=== PATIENT | female | born 1950 ===

== ENCOUNTER 2016-12-23 06:21 | Day surgery (SDC) | payer MEDICARE, OTHER ==
[2016-12-23] MEDS ORDERED: methylPREDNISolone Depo 80 mg/ml Inj ONE (07:03)
[2016-12-23] MEDS ORDERED: Lidocaine 1% 20 MG/2 ML PF AMP ONE (07:03)
[2016-12-23] MEDS ORDERED: Iohexol 300 10 ML ONE (07:03)
[2016-12-23] MEDS ORDERED: Bupivacaine HCl 0.25% PF (10 ml) Inj ONE (07:04)
[2016-12-23] MEDS ORDERED: Lidocaine 1% Inj (20ml) ONE (07:04)
[2016-12-23 07:08] VITALS: BMI 26.2
[2016-12-23] MEDS ORDERED: Propofol 10 mg/ml Inj (20 ML) ONE (07:25)
[2016-12-23] MEDS ORDERED: Lactated Ringer's 1,000 ML IV ONE (07:37)
[2016-12-23] MEDS ORDERED: Lactated Ringer's 1,000 ML IV SCH (08:01)
[2016-12-23 10:15] VITALS: RESP 18
[2016-12-23 10:35] VITALS: BP 122/83; PULSE 89; TEMP 98.5; O2SAT 99
--- NOTE | 2016-12-23 14:32 | OP ---
PROCEDURE DATE: 12/23/2016 PREOPERATIVE DIAGNOSIS: Lumbar radiculopathy. POSTOPERATIVE DIAGNOSIS: Lumbar radiculopathy. PROCEDURE: Left L3-L4, L4-L5 transforaminal epidural steroid injection. ANESTHESIOLOGIST: Dr. Michele SURGEON: Dr. Ramirez ANESTHESIA TYPE: Monitored anesthesia care. COMPLICATIONS: None. SPECIMEN: None. DESCRIPTION OF PROCEDURE: After re-discussion of the procedure with the patient including its risks, benefits, alternatives, outcome data, possibility of no effect or increased pain, the patient consen archana to the procedure. She denies any recent infections, bleeding tendencies, or being on anticoagula nts. The decision was then made to proceed to the OR. The patient was placed on the fluoroscopy table in a prone position with 2 pillows underneath her abd omen. The back was prepped and draped in a usual sterile fashion and sterile technique was adhered t o during the entire procedure. The L3 and L4 vertebral levels were first identified in the anterior- posterior view. Angulation towards the left at approximately 20 degrees was obtained to maximize the visualization of the left L3 and L4 pedicles. The skin overlying the 6 o'clock position of both ped icles was then infiltrated with 1% lidocaine using a 25 gauge needle. Subsequently, a 22 gauge 3-1/2 inch spinal needle was then incrementally advanced under fluoroscopic guidance until tip of the need le lay within the intervertebral foramen. This was confirmed on the anterior-posterior view and on l ateral views. At this point, approximately 1 mL of Isovue contrast was injected into both needles to show appropriate epidural and nerve root spread without any signs of CSF or intravenous uptake. At this point, approximately 3 mL of a 0.25% Marcaine and Depo-Medrol mixture was injected into each nee dle. At the end of the procedure, the needles were removed and patient's back was cleaned and dried and Band-Aids were applied. The patient was then transferred to the recovery area in good condition without any signs of [place] or any neurological deficits. She will have a followup in office in approximately 2-4 weeks. En-Fabiano Ramirez MD cc: [id number] TT: 12/23/2016 14:32:11 en
--- NOTE | 2016-12-23 15:27 | RAD ---
PROCEDURE: Lumbar Epidural Injection HISTORY: PAIN MANAGEMENT TECHNIQUE: Fluoroscopic guidance was provided for epidural injection for pain management purposes. FINDINGS: IMPRESSION: Fluoroscopic guidance provided for epidural injection. Please refer procedure.
== END 2016-12-23 10:30 | disposition home or self-care (01) ==
LOC: H.OPSURG 06:21
PROVIDERS: ATTEND Anesthesiology
DX: M54.16 Radiculopathy, lumbar region (principal); E11.9 Type 2 diabetes mellitus without complications
CPT/HCPCS: 64483; 64484; 82948; J1040; J2001; J2704; J7120; Q9967

== ENCOUNTER 2017-08-26 10:32 | Emergency (ER) | payer MEDICARE, OTHER ==
[2017-08-26 10:33] VITALS: BMI 26.2
[2017-08-26 11:09] VITALS: BP 136/71; PULSE 78; RESP 18; TEMP 98.2; O2SAT 97
--- NOTE | 2017-08-26 11:33 | ED PDOC ---
HPI: Back Time Seen by Provider: 08/26/17 11:32 Chief Complaint (Nursing): Back Pain Chief Complaint (Provider): back pain History Per: Patient Additional Complaint(s): 67-year-old female with history of chronic back pain presents to emergency department complaining of worsening pain to lower back. Patient states the pain got worse 2 days ago. She denies fall or trauma. No acute bowel or bladder dysfunction. Patient takes tramadol daily but this has provided minimal pain relief. Patient is under the care of Dr. Ramirez, paint process engineer and is due for an injection next week. PMD: Dr. Nowak Past Medical History Reviewed: Historical Data, Nursing Documentation, Vital Signs Vital Signs: Last Vital Signs Temp 98.2 F 08/26/17 11:06 Pulse 78 08/26/17 11:06 Resp 18 08/26/17 11:06 BP 136/71 08/26/17 11:06 Pulse Ox 97 08/26/17 11:06 - Medical History PMH: Anemia, Arthritis, Back Problems, HTN, Hypercholesterolemia, Hypothyroidism , Rheumatoid Arthritis - Surgical History Surgical History: Back Surgery, Hernia Repair Other surgeries: Left foot surgery x 4, right foot surgery x 1, right shoulder surgery - Family History Family History: States: No Known Family Hx - Living Arrangements Living Arrangements: With Family - Social History Current smoker - smoking cessation education provided: No Alcohol: None Drugs: Denies - Home Medications Home Medications: Ambulatory Orders Medication Instructions Recorded Diclofenac Sodium [Voltaren Gel] 1 applic TP QID 06/01/14 Gabapentin 300 mg PO Q12 06/01/14 Glimepiride [Amaryl] 4 mg PO BID 06/01/14 Megestrol [Megace] 200 mg PO BID 06/01/14 MetFORMIN [glucoPHAGE] 1,000 mg PO BID 06/01/14 [id number] Ethyl Esters [Lovaza] 1,000 mg PO DAILY 06/01/14 Pantoprazole Sodium [Protonix] 40 mg PO DAILY 06/01/14 Rosuvastatin Calcium [Crestor] 20 mg PO DAILY 06/01/14 traMADol/Acetaminophen [Ultracet 37.5 mg PO Q6 06/01/14 37.5/325 mg] Cholecalciferol [Vitamin D 1000 IU] 50,000 unit PO QWK 04/18/15 Cyanocobalamin (Vitamin B-12) 1 tab PO DAILY 04/18/15 [Vitamin B-12] Insulin Detemir [Levemir Flextouch] 18 unit SC BID 04/18/15 Meloxicam 7.5 mg PO DAILY 04/18/15 Ropinirole HCl [Ropinirole ER] 1 mg PO HS 04/18/15 Cyclobenzaprine [Cyclobenzaprine 10 mg PO TID PRN #15 tab 08/26/17 HCl] - Allergies Allergies/Adverse Reactions: Allergies Allergy/AdvReac Type Severity Reaction Status Date / Time No Known Allergies Allergy Verified 08/26/17 11:06 Review of Systems ROS Statement: Except As Marked, All Systems Reviewed And Found Negative Constitutional: Negative for: Fever Cardiovascular: Negative for: Chest Pain Respiratory: Negative for: Cough Gastrointestinal: Negative for: Nausea, Vomiting Genitourinary Female: Negative for: Dysuria, Frequency, Incontinence, Hematuria Musculoskeletal: Positive for: Back Pain Physical Exam - Reviewed Nursing Documentation Reviewed: Yes Vital Signs Reviewed: Yes - Physical Exam Appears: Positive for: Well, Non-toxic, No Acute Distress Skin: Negative for: Rash Eye Exam: Positive for: Normal appearance Cardiovascular/Chest: Positive for: Regular Rate, Rhythm Respiratory: Positive for: Normal Breath Sounds Back: Positive for: Vertebral Tenderness (lumbar region) Extremity: Positive for: Normal ROM. Negative for: Pedal Edema Neurologic/Psych: Positive for: Alert, Oriented, Gait (steady) - ECG O2 Sat by Pulse Oximetry: 97 Pulse Ox Interpretation: Normal Medical Decision Making Medical Decision Making: Impression: Acute on chronic back pain Plan: PO tylenol IM toradol She feels better after medications were administered in ED. Patient has prescription for tramadol at home, Flexeril prescription provided. She was instructed to follow up with Dr. Ramirez in 2-3 days. Disposition - Clinical Impression Clinical Impression: Back pain, Chronic back pain - Patient ED Disposition Is Patient to be Admitted: No Counseled Patient/Family Regarding: Diagnosis, Need For Followup, Rx Given - Disposition Referrals: Hailey Ramirez MD [Staff Provider] - Disposition: Routine/Home Disposition Time: 13:13 Condition: STABLE Additional Instructions: Continue with tramadol for pain. Take prescription meds as directed. Follow-up with paint process engineer. Prescriptions: Cyclobenzaprine [Cyclobenzaprine HCl] 10 mg PO TID PRN #15 tab PRN Reason: Muscle Pain Instructions: Back Pain (ED) Forms: [facility] ([facility])
== END 2017-08-26 13:20 | disposition home or self-care (01) ==
LOC: H.ER 10:32
DX: M54.9 Dorsalgia, unspecified (principal); E03.9 Hypothyroidism, unspecified; E78.00 Pure hypercholesterolemia, unspecified; G89.29 Other chronic pain; I10 Essential (primary) hypertension; M06.9 Rheumatoid arthritis, unspecified; Z79.4 Long term (current) use of insulin
CPT/HCPCS: 96372; 99282; J1885

== ENCOUNTER 2017-08-29 06:08 | Day surgery (SDC) | payer MEDICARE, OTHER ==
[2017-08-29] MEDS ORDERED: Iohexol 300 10 ML ONE (07:29)
[2017-08-29] MEDS ORDERED: MethylPREDNISolone Depo 40 mg/ml Inj ONE (07:29)
[2017-08-29] MEDS ORDERED: Lidocaine 1% Inj (20ml) ONE (07:30)
[2017-08-29] MEDS ORDERED: Bupivacaine HCl 0.25% PF (10 ml) Inj ONE (07:30)
[2017-08-29] MEDS ORDERED: Lactated Ringer's 1,000 ML IV ONE (07:45)
[2017-08-29] MEDS ORDERED: Propofol 10 mg/ml Inj (20 ML) ONE (07:46)
[2017-08-29] MEDS ORDERED: Iohexol 300 10 ML IJ ONE (07:53)
[2017-08-29] MEDS ORDERED: Lidocaine 1% Inj (20ml) IJ ONE (07:55)
[2017-08-29] MEDS ORDERED: MethylPREDNISolone Depo 40 mg/ml Inj IM ONE (08:00)
[2017-08-29] MEDS ORDERED: Bupivacaine HCl 0.25% PF (10 ml) Inj IJ ONE (08:00)
[2017-08-29] MEDS ORDERED: Lactated Ringer's 1,000 ML IV SCH (08:30)
--- NOTE | 2017-08-29 08:41 | OP ---
PROCEDURE DATE: 08/29/2017 PREOPERATIVE DIAGNOSIS: Failed back syndrome. POSTOPERATIVE DIAGNOSIS: Failed back syndrome. PROCEDURE: Left L3-4, L4-5, and L5-S1 transforaminal epidural steroid injection. ANESTHESIOLOGIST: Dr. Michele. SURGEON: Hailey Ramirez MD TYPE OF ANESTHESIA: Monitored anesthesia care. SPECIMENS: None. COMPLICATIONS: None. DESCRIPTION OF PROCEDURE: As follows. After we had discussion of the procedure with the patient including its risks, benefits, alternatives, outcome data and possibility of no effect or increased pain, the patient consented to the procedure. She denies any recent infection, bleeding tendencies or being on anticoagulants, a decision was then made to proceed to the OR. The patient was placed on a fluoroscopy table in a prone position with 2 pillows underneath her abdomen. The back was prepped and draped in a usual sterile fashion and a sterile technique was adhered to during the entire procedure. The L3, L4 and L5 vertebral levels were first identified in the anteroposterior view. Angulation towards the left at approximately 15 degrees was used to maximize the visualization of the left L3, L4 and L5 pedicles. The skin overlying the 6 o'clock position of all three pedicles was infiltrated with 1% lidocaine using a 25-gauge needle. Subsequently, a 22-gauge 3.5-inch spinal needle was incrementally advanced under fluoroscopic guidance until the tip of needle worked into the intravertebral foramen. After satisfactory position of all 3 needles, approximately 0.5 mL of Isovue contrast was injected showing appropriate epidural nerve root spread without any signs of CSF or intravenous involvement. At this point, approximately 3 mL of 0.25% Marcaine and Depo-Medrol mixture was injected. The needle was then removed and the patient's back was cleaned and dry bandages were applied. The patient was then transferred to the recovery area in good condition without any signs of TREATMENT SUPERVISOR toxicity or any neurological deficit. She will follow up in our office in approximately two to four weeks. Hailey Ramirez MD
[2017-08-29 09:01] VITALS: PULSE 83
[2017-08-29 09:07] VITALS: RESP 18
[2017-08-29 09:27] VITALS: BP 109/67; TEMP 98
[2017-08-29 09:30] VITALS: O2SAT 98
== END 2017-08-29 10:01 | disposition home or self-care (01) ==
LOC: H.OPSURG 06:08
PROVIDERS: ATTEND Anesthesiology
DX: M54.16 Radiculopathy, lumbar region (principal); E11.9 Type 2 diabetes mellitus without complications; K21.9 Gastro-esophageal reflux disease without esophagitis
CPT/HCPCS: 64483; 64484; 82948; J1030; J2001; J2704; J7120; Q9967

== ENCOUNTER 2017-09-24 09:23 | Day surgery (SDC) | payer MEDICARE, OTHER ==
[2017-09-24] MEDS ORDERED: Lactated Ringer's 1,000 ML IV ONE (10:00)
[2017-09-24 11:05] VITALS: RESP 18
[2017-09-24] MEDS ORDERED: Bupivacaine HCl 0.5% PF (10 ml) Inj ONE (11:43)
[2017-09-24] MEDS ORDERED: MethylPREDNISolone Depo 40 mg/ml Inj ONE (11:43)
[2017-09-24] MEDS ORDERED: Lidocaine 1% Inj (20ml) ONE (11:44)
[2017-09-24] MEDS ORDERED: Bupivacaine HCl 0.25% PF (10 ml) Inj ONE (11:44)
[2017-09-24] MEDS ORDERED: Midazolam 2 MG/2 ML VIAL ONE (11:56)
[2017-09-24] MEDS ORDERED: Iohexol 300 10 ML ONE (11:59)
[2017-09-24 13:16] VITALS: BP 142/78; PULSE 83; TEMP 97.6; O2SAT 98
--- NOTE | 2017-09-24 14:54 | RAD ---
PROCEDURE: Intraoperative Fluoroscopy. HISTORY: EPIDURAL FINDINGS: Fluoroscopic assistance was provided 51 point seconds fluoroscopy time utilized during this procedure. Radiation dose = 17.79 mGy. . Please refer to the operative report from KENRICK Bello.
--- NOTE | 2017-09-24 16:18 | OP ---
PROCEDURE DATE: 09/24/2017 PREOPERATIVE DIAGNOSES: Lumbar spondylosis and failed back syndrome. POSTOPERATIVE DIAGNOSES: Lumbar spondylosis and failed back syndrome. PROCEDURE: Left L4-5 and L5-S1 transforaminal epidural steroid injection and left L3, L4 and L5 medial branch nerve block. ANESTHESIOLOGIST: Dr. Liang. SURGEON: Hailey Ramirez MD TYPE OF ANESTHESIA: Monitored anesthesia care. COMPLICATIONS: None. SPECIMENS: None. DESCRIPTION OF PROCEDURE: As follows. After we had discussion of the procedure with the patient including its risks, benefits, alternatives, outcome data, possibility of no effects, and increased pain, the patient consented to the procedure. She denies any recent infection, bleeding tendencies or being on anticoagulants. Decision was then made to proceed to the OR. The patient was placed on a fluoroscopy table in a prone position with 2 pillows underneath her abdomen. The back was prepped and draped in a usual sterile fashion and a sterile technique was adhered to during the entire procedure. The transforaminal epidural steroid injection was performed first. The L4 and L5 vertebral levels were first identified in the anteroposterior view. Angulation towards the left at approximately 20 degrees was used to maximize the visualization of the left L4 and L5 pedicles. The skin overlying the 6 o'clock position of both pedicles was infiltrated with 1% lidocaine using a 25-gauge needle. Subsequently, a 22-gauge 3.5-inch spinal needle was incrementally advanced under fluoroscopic guidance until the tip of needle into the intervertebral foramen. After satisfactory position of both needles, approximately 0.5 mL of Isovue contrast was injected showing appropriate epidural nerve root spread without any signs of CSF or intravenous involvement. At this point, approximately 3 mL of 0.25% Marcaine and Depo-Medrol mixture was injected. Then, the medial branch nerve block was performed. was the left at approximately 15 degrees was used to maximize the visualization of the L3, L4 and L5 pedicles. The skin overlying the three above target areas was then infiltrated with 1% lidocaine using a 25-gauge needle. Subsequently, a 22-gauge 3.5-inch spinal needle was then incrementally advanced under fluoroscopic guidance until tip of the needle made bony contact with all three target areas. After satisfactory positioning of all three needles, approximately 3 mL of 0.5% Marcaine and Depo-Medrol mixture was injected. The needles were then removed and the patient's back was cleaned and dry bandages were applied. The patient was then transferred to the recovery area in good condition without any signs of WOOL PRESSER toxicity or any neurological deficits. She will follow up in our office in approximately 2 to 4 weeks. En-Fabiano Ramirez MD
== END 2017-09-24 13:45 | disposition home or self-care (01) ==
LOC: H.OPSURG 09:23
PROVIDERS: ATTEND Anesthesiology
DX: M47.816 Spondylosis without myelopathy or radiculopathy, lumbar region (principal)
CPT/HCPCS: 64483; 64484; 76000; 82948; J1030; J2250; J3010; J7120; Q9967

== ENCOUNTER 2017-11-04 10:09 | Inpatient (IN) | payer MEDICARE, OTHER ==
[2017-11-04 10:09] VITALS: BMI 26.2
--- NOTE | 2017-11-04 10:36 | ED PDOC ---
HPI: Back Time Seen by Provider: 11/04/17 10:23 History Per: Patient Current Symptoms Are (Timing): Still Present Quality Of Discomfort: Aching Severity: Moderate Pain Scale Rating Of: 5 Previous Symptoms: Back Pain Associated Symptoms: None Exacerbating Factor(s): Movement Additional Complaint(s): Left sided low back pain radiating to left leg assoc with numbness left leg. Progressively worse over past week. H/o lumbar disc herniation. No improvement with injections. Past Medical History Vital Signs: Last Vital Signs Temp 98.1 F 11/04/17 10:20 Pulse 92 H 11/04/17 10:20 Resp 16 11/04/17 10:20 BP 134/76 11/04/17 10:20 Pulse Ox 96 11/04/17 10:20 - Medical History PMH: Anemia, Arthritis, Back Problems, Diabetes, HTN, Hypercholesterolemia, Hyperthyroidism, Hypothyroidism, Rheumatoid Arthritis Denies: Chronic Kidney Disease - Surgical History Surgical History: Back Surgery, Hernia Repair - Family History Family History: States: Unknown Family Hx - Home Medications Home Medications: Ambulatory Orders Medication Instructions Recorded Diclofenac Sodium [Voltaren Gel] 1 applic TP QID 06/01/14 Gabapentin 600 mg PO DAILY 06/01/14 Megestrol [Megace] 200 mg PO BID 06/01/14 MetFORMIN [glucoPHAGE] 1,000 mg PO BID 06/01/14 [id number] Ethyl Esters [Lovaza] 1,000 mg PO DAILY 06/01/14 Pantoprazole Sodium [Protonix] 40 mg PO DAILY 06/01/14 Rosuvastatin Calcium [Crestor] 20 mg PO DAILY 06/01/14 traMADol/Acetaminophen [Ultracet 37.5 mg PO Q6 06/01/14 37.5/325 mg] Cholecalciferol [Vitamin D 1000 IU] 50,000 unit PO QWK 04/18/15 Insulin Detemir [Levemir Flextouch] 18 unit SC BID 04/18/15 Ropinirole HCl [Ropinirole ER] 0.5 mg PO HS 04/18/15 Cyclobenzaprine [Cyclobenzaprine 10 mg PO TID PRN #15 tab 08/26/17 HCl] Cholecalciferol (Vitamin D3) 5,000 unit PO ONCE 10/29/17 [Vitamin D3] Cyanocobalamin [Vitamin B12 100 100 mcg PO DAILY 10/29/17 mcg Tab] Empagliflozin [Jardiance] 25 mg PO DAILY 10/29/17 Lactulose [Generlac] 10 gm PO DAILY 10/29/17 Memantine [Namenda] 10 mg PO BID 10/29/17 - Allergies Allergies/Adverse Reactions: Allergies Allergy/AdvReac Type Severity Reaction Status Date / Time No Known Allergies Allergy Verified 09/24/17 10:22 Review of Systems ROS Statement: Except As Marked, All Systems Reviewed And Found Negative Musculoskeletal: Positive for: Back Pain Neurological: Positive for: Numbness Physical Exam - Reviewed Nursing Documentation Reviewed: Yes Vital Signs Reviewed: Yes - Physical Exam Appears: Positive for: Non-toxic, No Acute Distress Head Exam: Positive for: ATRAUMATIC, NORMAL INSPECTION, NORMOCEPHALIC Skin: Positive for: Normal Color, Warm, DRY Eye Exam: Positive for: EOMI, Normal appearance, PERRL ENT: Positive for: Normal ENT Inspection Neck: Positive for: Normal, Painless ROM Cardiovascular/Chest: Positive for: Regular Rate, Rhythm Respiratory: Positive for: CNT, Normal Breath Sounds Gastrointestinal/Abdominal: Positive for: Normal Exam, Soft Back: Positive for: Vertebral Tenderness (Lumbar area) Extremity: Positive for: Normal ROM Neurologic/Psych: Positive for: Alert, Oriented. Negative for: Motor/Sensory Deficits - ECG O2 Sat by Pulse Oximetry: 96 Disposition - Clinical Impression Clinical Impression: Lumbar disc herniation with radiculopathy - Patient ED Disposition Is Patient to be Admitted: Yes - Disposition Disposition Time: 10:36 Condition: FAIR - Pt Status Changed To: Hospital Disposition Of: Inpatient - Admit Certification Admit to Inpatient:: After my assessment, the patient will require hospitalization for at least two midnights. This is because of the severity of symptoms shown, intensity of services needed, and/or the medical risk in this patient being treated as an outpatient. - POA Present On Arrival: None
--- NOTE | 2017-11-04 11:04 | RAD ---
HISTORY: COMPARISON: 10/16/2017. TECHNIQUE: Chest PA and lateral FINDINGS: LINES AND TUBES: None. LUNG AND PLEURA: The lungs are well inflated and clear. HEART AND MEDIASTINUM: The heart is not enlarged. The hilar and mediastinal contours are within normal limits. SKELETAL STRUCTURES: The bony structures are within normal limits for the patient's age. VISUALIZED UPPER ABDOMEN: Normal. OTHER FINDINGS: None. IMPRESSION: No active pulmonary disease.
[2017-11-04 11:28] LABS: BASO % 0.5 % (0.0-2.0); EOS # 0.2 K/uL (0.0-0.7); EOS % 2.6 % (0.0-4.0); HEMOGLOBIN 11.1 g/dL (12.0-16.0); LYMPH # 1.8 K/uL (1.0-4.3); LYMPH % 21.4 % (20.0-40.0); MEAN CELL VOLUME 89.5 fl (81.0-99.0); MEAN CORPUSCULAR HEMOGLOBIN 28.8 pg (27.0-31.0); MEAN CORPUSCULAR HGB CONC 32.2 g/dL (33.0-37.0); MEAN PLATELET VOLUME 8.7 fl (7.2-11.7); MONO # 0.7 K/uL (0.0-0.8); MONO % 8.1 % (0.0-10.0); NEUT # 5.7 K/uL (1.8-7.0); NEUT % 67.4 % (50.0-75.0); NRBC % 0.1 % (0.0-0.0); RBC 3.85 Mil/uL (3.80-5.20); RED CELL DISTRIBUTION WIDTH 16.9 % (11.5-14.5); WHITE BLOOD COUNT 8.4 K/uL (4.8-10.8)
[2017-11-04 11:31] LABS: PROTHROMBIN TIME 10.9 Seconds (9.8-13.1)
[2017-11-04 11:35] LABS: ALB/GLOB RATIO 1.3 (1.0-2.1); ALBUMIN 3.8 g/dL (3.5-5.0); ALT/SGPT 36 U/L (9-52); AST/SGOT 23 U/L (14-36); BLOOD UREA NITROGEN 14 mg/dl (7-17); CALCIUM 9.3 mg/dL (8.4-10.2); GFR AFRICAN-AMERICAN > 60; GFR NON-AFRICAN AMERICAN > 60
--- NOTE | 2017-11-04 16:07 | CP.PCM.CON ---
History of Present Illness - History of Present Illness History of Present Illness: Neurosurgery consult Patient is a 67 y/o female with PMH of OA, DM, HTN, hypercholesterolemia, hyperthyroidism and RA who presents to [facility] ER with c/o severe lower back pain. She denies any injury or trauma recently but states the she had lower back pain for many years which has progressively worsened over the past few months and has been very limiting over the past few days. Dr. Montes was consulted for neurosurgical evaluation. The pain has severely limited her daily functions including walking, sitting and climbing stairs. The pain is sharp, stabbing and left sided. The pain radiates down the LLE with associated occasional numbness and tingling. She has failed conservative management with oral meds and physical therapy, as well as steroid injections. Se denies any bowel/ bladder dysfunction or saddle paresthesias. She also denies CP/SOB/N/V/D/MEDINA/ fever/dysuria/melena. Review of Systems - Review of Systems All systems: reviewed and no additional remarkable complaints except Review of Systems: as per HPI Past Patient History - Past Medical History & Family History Past Medical History?: Yes Past Family History: Reviewed and not pertinent - Past Social History Smoking Status: Never Smoked Drugs: Denies - CARDIAC Hx Cardiac Disorders: Yes (HTN, high cholesterol,) - PULMONARY Hx Respiratory Disorders: No - NEUROLOGICAL Hx Neurological Disorder: No - HEENT Hx HEENT Problems: No Other/Comment: Excision of cyst R eye - RENAL Hx Chronic Kidney Disease: No - ENDOCRINE/METABOLIC Hx Endocrine Disorders: Yes (DM, hyperthyroidism) - HEMATOLOGICAL/ONCOLOGICAL Hx Blood Disorders: Yes (anemia) - INTEGUMENTARY Hx Dermatological Problems: No Other/Comment: Excision of neuroma david feet, Excision of sebaceous L shoulder - MUSCULOSKELETAL/RHEUMATOLOGICAL Hx Musculoskeletal Disorders: Yes (arthritis, back pain, herniated disk) - GASTROINTESTINAL Hx Gastrointestinal Disorders: Yes Hx Gastroesophageal Reflux: Yes Other/Comment: GERD - GENITOURINARY/GYNECOLOGICAL Hx Genitourinary Disorders: No - PSYCHIATRIC Hx Psychophysiologic Disorder: No Hx Emotional Abuse: No Hx Physical Abuse: No Hx Substance Use: No - SURGICAL HISTORY Hx Surgeries: Yes Hx Eye Surgery: Yes (LASIK SX RT EYE 3 WEEKS AGO) Hx Musculoskeletal Surgery: Yes (BACK SURGERY) Hx Orthopedic Surgery: Yes (R shoulder sx) Other/Comment: MULTIPLE EPIDURALS/DAVID FOOT SURGERYX5/RIGHT SHOULDER SURGERY - ANESTHESIA Hx Anesthesia: Yes Hx Anesthesia Reactions: No Hx Malignant Hyperthermia: No Meds Allergies/Adverse Reactions: Allergies Allergy/AdvReac Type Severity Reaction Status Date / Time No Known Allergies Allergy Verified 09/24/17 10:22 Physical Exam - Constitutional Appears: No Acute Distress - Head Exam Head Exam: ATRAUMATIC, NORMOCEPHALIC - Eye Exam Eye Exam: EOMI, Normal appearance, PERRL - ENT Exam ENT Exam: Mucous Membranes Moist - Neck Exam Neck exam: Positive for: Normal Inspection - Respiratory Exam Respiratory Exam: Clear to Auscultation Bilateral, NORMAL BREATHING PATTERN - Cardiovascular Exam Cardiovascular Exam: REGULAR RHYTHM - GI/Abdominal Exam GI & Abdominal Exam: Normal Bowel Sounds, Soft - Back Exam Additional comments: NSX: + lumbar vertebral tenderness, +L paraspinal tenderness, old lumbar laminectomy scar all CN intact sensation intact SP/DP/TN 4/5 strength LLE, 5/5 RLE distal pulses intact + L SLR, neg R SLR, neg babinski, neg homans - Neurological Exam Neurological exam: Alert, Oriented x3 - Psychiatric Exam Psychiatric exam: Normal Affect, Normal Mood - Skin Skin Exam: Normal Color, Warm Results - Vital Signs Recent Vital Signs: Last Vital Signs Temp 98.0 F 11/04/17 14:40 Pulse 80 11/04/17 14:40 Resp 18 11/04/17 14:40 BP 139/79 11/04/17 14:40 Pulse Ox 96 11/04/17 14:40 - Labs Result Diagrams: 11/05/17 05:55 11/05/17 05:55 Labs: Laboratory Results - last 24 hr 11/04/17 11/04/17 11/04/17 10:45 10:45 10:45 WBC 8.4 RBC 3.85 Hgb 11.1 L Hct 34.4 MCV 89.5 MCH 28.8 MCHC 32.2 L RDW 16.9 H Plt Count 260 MPV 8.7 Neut % (Auto) 67.4 Lymph % (Auto) 21.4 Calloway % (Auto) 8.1 Eos % (Auto) 2.6 Baso % (Auto) 0.5 Neut # (Auto) 5.7 Lymph # (Auto) 1.8 Calloway # (Auto) 0.7 Eos # (Auto) 0.2 Baso # (Auto) 0.0 PT 10.9 INR 1.0 Sodium 140 Potassium 3.9 Chloride 102 Carbon Dioxide 23 Anion Gap 19 BUN 14 Creatinine 0.6 L Est GFR ( Amer) > 60 Est GFR (Non-Af Amer) > 60 POC Glucose (mg/dL) Random Glucose 281 H Calcium 9.3 Total Bilirubin 0.3 AST 23 ALT 36 Alkaline Phosphatase 69 Total Protein 6.8 Albumin 3.8 Globulin 3.0 Albumin/Globulin Ratio 1.3 11/04/17 10:45 WBC RBC Hgb Hct MCV MCH MCHC RDW Plt Count MPV Neut % (Auto) Lymph % (Auto) Calloway % (Auto) Eos % (Auto) Baso % (Auto) Neut # (Auto) Lymph # (Auto) Calloway # (Auto) Eos # (Auto) Baso # (Auto) PT INR Sodium Potassium Chloride Carbon Dioxide Anion Gap BUN Creatinine Est GFR ( Amer) Est GFR (Non-Af Amer) POC Glucose (mg/dL) 248 H Random Glucose Calcium Total Bilirubin AST ALT Alkaline Phosphatase Total Protein Albumin Globulin Albumin/Globulin Ratio Assessment & Plan (1) Lumbar disc herniation with radiculopathy Assessment and Plan: -Dr. Montes proposes L4-5 lumbar laminectomy with fusion in OR for kevin AM -Patient was explained risks/benefits/adv/disadv of procedure. Pt expresses understanding and agrees to proceed -NPO pMN -hold Dvt. ppx -above d/w Dr. Montes in agreement Status: Chronic Priority: High
--- NOTE | 2017-11-04 19:15 | CP.PCM.HP ---
History of Present Illness - History of Present Illness History of Present Illness: CC: Intractable Back pain. 67 y/o F, Multiple chronic medical conditions, including R/A, came to ER, [facility], [place] to be evaluated for acute on chronic back pain, that has been suffering from months, Pt c/o of gradually worsening back pain from last week, Pt with Hx of multiple admission to hospital for epidural block with some relief ,also using Tramadol with no total relief. Pt was c/o of L side low back pain, sharp, stabbing, severe intensity 9:10, radiated to LLE and associated occasional mild numbness/ tingling , also in the L leg. Worsening symptoms: Chronic back pain 2nd to lumbar disc herniations , sleepless 2nd to clinical condition. Aggravated factor: Movements, limited in all the ADL's. Pt denied: Recent trauma, fever, chills, dizziness, CP, palpitations, SOB, cough, n/v/d, abdominal pain, urinary symptoms, sick contact, recent travel out of [facility]. On 10/10/17, Pt had Lumbar Spine CT showing: Worsening of degenerative central stenosis at L4-5, moderate to severe. Slightly greater the left than right given partial R Hemilaminectomy. CXR shows: No active pulmonary disease. Present on Admission - Present on Admission Any Indicators Present on Admission: No Review of Systems - Constitutional Constitutional: Other (negative) - EENT Eyes: Requires Corrective Lenses Nose/Mouth/Throat: Other (negative) - Cardiovascular Cardiovascular: Other (negative) - Respiratory Respiratory: Other (negative) - Gastrointestinal Gastrointestinal: Other (negative) - Genitourinary Genitourinary: Other (negative) - Musculoskeletal Musculoskeletal: Arthralgias, Back Pain, Radiating Pain into Limb - Integumentary Integumentary: Other (negative) - Neurological Neurological: Confusion (at times), Numbness (L/E), Tingling (L/E) - Psychiatric Psychiatric: Abnormal Sleep Pattern - Endocrine Endocrine: Other (negative) - Hematologic/Lymphatic Hematologic: Other (negative) Past Patient History - Past Medical History & Family History Past Medical History?: Yes Past Family History: Reviewed and not pertinent Pertinent Family History: Unknown - Past Social History Smoking Status: Never Smoked Alcohol: None Drugs: Denies Home Situation {Lives}: With Family - CARDIAC Hx Cardiac Disorders: Yes (HTN, high cholesterol,) - PULMONARY Hx Respiratory Disorders: No - NEUROLOGICAL Hx Neurological Disorder: No - HEENT Hx HEENT Problems: No Other/Comment: Excision of cyst R eye - RENAL Hx Chronic Kidney Disease: No - ENDOCRINE/METABOLIC Hx Endocrine Disorders: Yes (DM) Hx Diabetes Mellitus Type 2: Yes Other/Comment: DM Neuropathy , DM Retinopathy - HEMATOLOGICAL/ONCOLOGICAL Hx Blood Disorders: Yes (anemia) - INTEGUMENTARY Hx Dermatological Problems: No Other/Comment: Excision of neuroma david feet, Excision of sebaceous L shoulder - MUSCULOSKELETAL/RHEUMATOLOGICAL Hx Musculoskeletal Disorders: Yes (arthritis, back pain, herniated disk) - GASTROINTESTINAL Hx Gastrointestinal Disorders: Yes Hx Gastroesophageal Reflux: Yes Other/Comment: GERD - GENITOURINARY/GYNECOLOGICAL Hx Genitourinary Disorders: No - PSYCHIATRIC Hx Psychophysiologic Disorder: No Hx Anxiety: Yes Hx Emotional Abuse: No Hx Physical Abuse: No Hx Substance Use: No - SURGICAL HISTORY Hx Surgeries: Yes Hx Eye Surgery: Yes (LASIK SX RT EYE 3 WEEKS AGO) Hx Musculoskeletal Surgery: Yes (BACK SURGERY) Hx Orthopedic Surgery: Yes (R shoulder sx) Other/Comment: MULTIPLE EPIDURALS/DAVID FOOT SURGERYX5/RIGHT SHOULDER SURGERY - ANESTHESIA Hx Anesthesia: Yes Hx Anesthesia Reactions: No Hx Malignant Hyperthermia: No Meds Allergies/Adverse Reactions: Allergies Allergy/AdvReac Type Severity Reaction Status Date / Time No Known Allergies Allergy Verified 09/24/17 10:22 Physical Exam - Constitutional Appears: No Acute Distress - Head Exam Head Exam: NORMAL INSPECTION - Eye Exam Eye Exam: PERRL - ENT Exam Additional comments: Decreased hearing R side. - Neck Exam Neck exam: Positive for: Normal Inspection - Respiratory Exam Respiratory Exam: Clear to Auscultation Bilateral - Cardiovascular Exam Cardiovascular Exam: REGULAR RHYTHM - GI/Abdominal Exam GI & Abdominal Exam: Normal Bowel Sounds, Soft - Extremities Exam Extremities exam: Positive for: normal inspection - Back Exam Back exam: NORMAL INSPECTION - Neurological Exam Neurological exam: Alert, Oriented x3 Additional comments: No motor deficit , decreased sensation distal lege , feet - Psychiatric Exam Psychiatric exam: Normal Mood - Skin Skin Exam: Normal Color, Warm Results - Vital Signs Recent Vital Signs: Last Vital Signs Temp 98.1 F 11/04/17 16:47 Pulse 82 11/04/17 16:47 Resp 17 11/04/17 16:47 BP 157/73 H 11/04/17 16:47 Pulse Ox 97 04/24/18 16:47 reviewed KatiePManfred - Labs Result Diagrams: 11/04/17 10:45 11/04/17 10:45 Labs: Laboratory Results - last 24 hr 11/04/17 11/04/17 11/04/17 10:45 10:45 10:45 WBC 8.4 RBC 3.85 Hgb 11.1 L Hct 34.4 MCV 89.5 MCH 28.8 MCHC 32.2 L RDW 16.9 H Plt Count 260 MPV 8.7 Neut % (Auto) 67.4 Lymph % (Auto) 21.4 Rolette % (Auto) 8.1 Eos % (Auto) 2.6 Baso % (Auto) 0.5 Neut # (Auto) 5.7 Lymph # (Auto) 1.8 Rolette # (Auto) 0.7 Eos # (Auto) 0.2 Baso # (Auto) 0.0 PT 10.9 INR 1.0 Sodium 140 Potassium 3.9 Chloride 102 Carbon Dioxide 23 Anion Gap 19 BUN 14 Creatinine 0.6 L Est GFR ( Amer) > 60 Est GFR (Non-Af Amer) > 60 POC Glucose (mg/dL) Random Glucose 281 H Calcium 9.3 Total Bilirubin 0.3 AST 23 ALT 36 Alkaline Phosphatase 69 Total Protein 6.8 Albumin 3.8 Globulin 3.0 Albumin/Globulin Ratio 1.3 11/04/17 10:45 WBC RBC Hgb Hct MCV MCH MCHC RDW Plt Count MPV Neut % (Auto) Lymph % (Auto) Rolette % (Auto) Eos % (Auto) Baso % (Auto) Neut # (Auto) Lymph # (Auto) Rolette # (Auto) Eos # (Auto) Baso # (Auto) PT INR Sodium Potassium Chloride Carbon Dioxide Anion Gap BUN Creatinine Est GFR ( Amer) Est GFR (Non-Af Amer) POC Glucose (mg/dL) 248 H Random Glucose Calcium Total Bilirubin AST ALT Alkaline Phosphatase Total Protein Albumin Globulin Albumin/Globulin Ratio reviewed JManfredPManfred - Imaging and Cardiology Chest x-ray Status: Report reviewed by me (Tiara) Assessment & Plan (1) Acute exacerbation of chronic low back pain Status: Acute Priority: High (2) Lumbar disc herniation with radiculopathy Status: Chronic Priority: High (3) DM type 2 (diabetes mellitus, type 2) Status: Acute (4) DM neuropathy, type II diabetes mellitus Status: Acute (5) Hypercholesterolemia Status: Chronic Priority: Medium (6) Vitamin D deficiency Status: Acute (7) Anxiety Status: Chronic Priority: Medium - Assessment and Plan (Free Text) Plan: Morphine, IV NS , NPO after midnight , Accu Check-Humalog ,Neurosurgery consult appreciated , review EKG for Medical clearance. - Date & Time Date: 11/04/17 Time: 19:00
[2017-11-04] MEDS: Insulin Lispro (humaLOG) 100 Units/ml Inj SC SCH (22:07)
[2017-11-05] MEDS ORDERED: Sodium Chloride 0.45% 1,000 ML IV SCH (00:01)
[2017-11-05 07:00] LABS: BASO % 0.4 % (0.0-2.0); EOS # 0.1 K/uL (0.0-0.7); EOS % 2.1 % (0.0-4.0); HEMOGLOBIN 11.1 g/dL (12.0-16.0); LYMPH # 1.7 K/uL (1.0-4.3); LYMPH % 25.7 % (20.0-40.0); MEAN CELL VOLUME 88.6 fl (81.0-99.0); MEAN CORPUSCULAR HEMOGLOBIN 28.3 pg (27.0-31.0); MEAN CORPUSCULAR HGB CONC 31.9 g/dL (33.0-37.0); MEAN PLATELET VOLUME 8.4 fl (7.2-11.7); MONO # 0.5 K/uL (0.0-0.8); MONO % 7.9 % (0.0-10.0); NEUT # 4.2 K/uL (1.8-7.0); NEUT % 63.9 % (50.0-75.0); RBC 3.93 Mil/uL (3.80-5.20); RED CELL DISTRIBUTION WIDTH 16.5 % (11.5-14.5); WHITE BLOOD COUNT 6.6 K/uL (4.8-10.8)
[2017-11-05] MEDS ORDERED: Bacitracin Ointment 30 GM TUBE ONE (07:06)
[2017-11-05] MEDS ORDERED: Thrombin Topical 5,000 Int Units Spray Kit ONE (07:06)
[2017-11-05] MEDS ORDERED: Lidocaine 1% w Epi 1:100,000 Inj ONE (07:06)
[2017-11-05] MEDS ORDERED: Absorbable Gelatin Sponge Size 100 ONE (07:06)
[2017-11-05] MEDS ORDERED: Bupivacaine HCl 0.25% PF (30 ml) Inj ONE (07:06)
[2017-11-05 07:13] LABS: PARTIAL THROMBOPLASTIN TIME 23.9 Seconds (25.6-37.1); PROTHROMBIN TIME 10.9 Seconds (9.8-13.1)
[2017-11-05 07:14] LABS: BLOOD UREA NITROGEN 12 mg/dl (7-17); CALCIUM 9.1 mg/dL (8.4-10.2); GFR AFRICAN-AMERICAN > 60; GFR NON-AFRICAN AMERICAN > 60; HDL CHOLESTEROL 41 MG/DL (30-70)
[2017-11-05] MEDS ORDERED: Propofol 10 mg/ml Inj (20 ML) ONE ×3 (07:19→09:11)
[2017-11-05] MEDS ORDERED: Succinylcholine 200 mg/10 ml Inj IV ONE (07:19)
[2017-11-05] MEDS ORDERED: Etomidate 20 mg/10ml Inj IV ONE (07:19)
[2017-11-05 07:24] LABS: T4 6.59 ug/dl (5.5-11.0)
[2017-11-05 07:25] LABS: LDL CHOLESTEROL 134 mg/dL (0-129)
[2017-11-05] MEDS: Insulin Lispro (humaLOG) 100 Units/ml Inj SC SCH ×3 (07:28→22:27)
[2017-11-05] MEDS ORDERED: Lactated Ringer's 1,000 ML IV ONE ×2 (07:35→11:20)
[2017-11-05] MEDS ORDERED: Esmolol 100 mg/10ml Inj IV ONE (07:51)
[2017-11-05] MEDS ORDERED: Rocuronium 10 mg/ml (5 ml) ONE (07:51)
[2017-11-05] MEDS ORDERED: Lidocaine 1% w Epi 1:100,000 Inj INJ ONE (07:55)
[2017-11-05] MEDS ORDERED: ePHEDrine 50 mg/ml Inj ONE (07:58)
[2017-11-05] MEDS ORDERED: Neostigmine 1:1000 (1 mg/ml) Inj ONE (08:15)
[2017-11-05] MEDS ORDERED: HEMOSTATIC MATRIX 10 ML DIS.NEEDLE TOP ONE (08:49)
[2017-11-05] MEDS ORDERED: Thrombin Topical 5,000 Int Units Spray Kit TOP ONE (08:55)
[2017-11-05] MEDS ORDERED: Absorbable Gelatin Sponge Size 100 TP ONE (08:55)
[2017-11-05] MEDS ORDERED: Desflurane Inhalation Anesthetic Liq (240 ml) ONE (09:07)
[2017-11-05] MEDS ORDERED: Bupivacaine HCl 0.25% PF (30 ml) Inj IJ ONE (09:10)
[2017-11-05] MEDS: HYDROmorphone 0.5 mg/0.5 ml ISec IVP PRN ×6 (09:35→10:25)
[2017-11-05] MEDS ORDERED: HYDROmorphone 0.5 mg/0.5 ml ISec ONE (09:48)
[2017-11-05] MEDS ORDERED: HYDROmorphone 0.5 mg/0.5 ml ISec IVP PRN (10:29)
--- NOTE | 2017-11-05 10:33 | CARD ---
APPROVED REPORT EKG Measurement Heart [id number] <Conclusion> Normal sinus rhythm Normal ECG
--- NOTE | 2017-11-05 10:53 | CARD ---
APPROVED REPORT EKG Measurement Heart [id number] CA 160P34 [id number] <Conclusion> Normal sinus rhythm Normal ECG
[2017-11-05] MEDS ORDERED: Oxycodone/Acetaminophen 5/325 mg Tab PO PRN ×2 (11:14→13:28)
--- NOTE | 2017-11-05 11:30 | PCM.SURG1 ---
Surgeon's Initial Post Op Note - Surgeon's Notes Surgeon: Raphael Montes MD Injection Molding Operator: Raphael Alvares PA-C Type of Anesthesia: General Endo Anesthesia Administered By: Mahendra NGUYỄN Pre-Operative Diagnosis: Lumbar HNP with radiculopathy Operative Findings: see complete operative note Post-Operative Diagnosis: L4-5 spondylosis and HNP Operation Performed: L4-5 lumbar laminectomy with fusion Specimen/Specimens Removed: none Estimated Blood Loss: EBL {In ML}: 20 Blood Products Given: N/A Drains Used: Manish Sainz (x 2) Post-Op Condition: Good Date of Surgery/Procedure: 11/05/17 Time of Surgery/Procedure: 07:55
[2017-11-05] MEDS: Sodium Chloride 0.9% 1,000 ML IV SCH ×2 (11:35→22:26)
--- NOTE | 2017-11-05 12:43 | RAD ---
PROCEDURE: Intraoperative Fluoroscopy. HISTORY: LUMBAR LAMI WITH FUSION FINDINGS: Fluoroscopic assistance was provided. 36.1 seconds fluoroscopy time utilized during this exam. Radiation dose = 25.26 mGy Please refer to the operative.
--- NOTE | 2017-11-05 14:33 | CP.PCM.PN ---
Subjective - Date & Time of Evaluation Date of Evaluation: 11/05/17 Time of Evaluation: 11:30 - Subjective Subjective: F/U Acute on chronic low Back pain Complains of lumbosacral pain , Patient is status post L4-L5 lumbar laminectomy with fusion Objective - Vital Signs/Intake and Output Vital Signs (last 24 hours): Temp Pulse Resp BP Pulse Ox 97.5 F L 66 18 129/75 95 11/05/17 13:04 11/05/17 13:04 11/05/17 13:04 11/05/17 13:04 11/05/17 13:04 Intake and Output: 11/05/17 11/05/17 06:59 18:59 Intake Total 960 Output Total 65 Balance 895 - Medications Medications: Current Medications Acetaminophen (Tylenol 325mg Tab) 650 mg PO Q4 PRN PRN Reason: Fever 101 degrees fahrenheit Docusate Sodium (Colace) 100 mg PO BID [facility] Sodium Chloride (Sodium Chloride 0.45%) 1,000 mls @ 80 mls/hr IV .[id number] [facility] Stop: 11/05/17 17:43 Last Admin: 11/05/17 00:19 Dose: 80 mls/hr Cefazolin Sodium 2 gm/ Sodium (Chloride) 100 mls @ 100 mls/hr IVPB Q8 [facility] PRN Reason: Protocol Stop: 11/06/17 17:59 Sodium Chloride (Sodium Chloride 0.9%) 1,000 mls @ 80 mls/hr IV .[id number] [facility] Stop: 11/06/17 11:34 Last Admin: 11/05/17 11:35 Dose: 150 mls Insulin Human Lispro (Humalog) 0 units SC ACCU-CHECK [facility] PRN Reason: Protocol Last Admin: 11/05/17 07:28 Dose: Not Given Morphine Sulfate (Morphine) 2 mg IVP Q4 PRN PRN Reason: Pain, severe (8-10) Morphine Sulfate (Morphine) 2 mg IVP Q6 PRN PRN Reason: Pain, moderate (4-7) Ondansetron HCl (Zofran Inj) 4 mg IVP ONCE PRN PRN Reason: Nausea/Vomiting Oxycodone/Acetaminophen (Percocet 5/325 Mg Tab) 1 tab PO Q6 PRN PRN Reason: Pain, Mild (1-3) Stop: 11/08/17 16:01 Zolpidem Tartrate (Ambien) 10 mg PO HS PRN PRN Reason: Insomnia Last Admin: 11/04/17 21:54 Dose: 10 mg - Labs Labs: 11/05/17 05:55 11/05/17 05:55 PT 10.9 Seconds (9.8-13.1) 11/05/17 05:55 INR 1.0 (0.9-1.2) 11/05/17 05:55 APTT 23.9 Seconds (25.6-37.1) L 11/05/17 05:55 - Constitutional Appears: No Acute Distress - Eye Exam Eye Exam: PERRL - ENT Exam ENT Exam: Normal Exam - Neck Exam Neck Exam: Normal Inspection - Respiratory Exam Respiratory Exam: Clear to Ausculation Bilateral - Cardiovascular Exam Cardiovascular Exam: REGULAR RHYTHM - GI/Abdominal Exam GI & Abdominal Exam: Soft, Normal Bowel Sounds - Extremities Exam Extremities Exam: Normal Inspection - Back Exam Back Exam: tenderness Additional comments: Surgical incision, drainage in place - Neurological Exam Neurological Exam: CN II-XII Intact, Oriented x3 (no motor deficit , decreased sensation distal legs feet) - Psychiatric Exam Psychiatric exam: Anxious - Skin Skin Exam: Warm Assessment and Plan (1) Acute exacerbation of chronic low back pain Status: Acute (2) Lumbar disc herniation with radiculopathy Status: Chronic (3) DM type 2 (diabetes mellitus, type 2) Status: Acute (4) DM neuropathy, type II diabetes mellitus Status: Acute (5) Hypercholesterolemia Status: Chronic (6) Vitamin D deficiency Status: Acute (7) Anxiety Status: Chronic (8) S/P lumbar laminectomy Assessment & Plan: with fusion Status: Acute (9) Status post lumbar laminectomy Status: Acute - Assessment and Plan (Free Text) Plan: Continue morphine Percocet , and rest of the treatment, blood sugar control, PT eval
--- NOTE | 2017-11-05 16:07 | OP ---
PROCEDURE DATE: 11/05/2017 PREOPERATIVE DIAGNOSES: Lumbar spondylosis and listhesis. POSTOPERATIVE DIAGNOSES: Lumbar spondylosis and listhesis. PROCEDURE: Left L4-5 castillo-laminotomy, medial facetectomy, decompression of L4-5, pedicle screw fixation and instrumentation using spinal element system, left L4-5 posterolateral fusion. Fluoroscopy has been used. SURGEON: Raphael Montes MD HAT MEASURER: Raphael Alvares PA-C who stayed throughout the case from the beginning to the end. DESCRIPTION OF PROCEDURE: The patient was brought to the operating room, anesthetized with general endotracheal anesthesia, and placed in a prone position on the Manish table. Care was taken to protect all pressure points. Back of the lumbar area was thoroughly prepped and draped in standard sterile manner over the previously made lumbar laminectomy skin incision. Skin has been incised. Bleeding skins have been controlled with bipolar hog trader. After using a Bovie hog trader, paraspinal muscles had been detached from the attachments of spinous process and lamina of L4-L5. The hemilaminotomy defect on the L4-5 in the right side has been noted. By using a traditional landmark, point of entry had been noted for pedicle at L4 and L5. Initially, a K-wire, later a drill has been used in order to enter the pedicles of L4 and L5. Polyaxial titanium screws of spinal elements have been placed. Titanium rods have been placed and cap nuts have been used in order to secure them. After that, under magnification, by using a high-speed drill, the lamina of L4-5, medial part of the L4-5 have been drilled . By using a fine Kerrison punch, thinned out the lamina, medial part of the facets and ligamentum flavum has been removed, decompressing this area. After that, the lateral aspect of facet joint and transverse process have been decorticated and demineralized bone placed in the area achieving a posterolateral fusion. After that, hemostasis was best achieved. Manish drain was placed in the wound and brought out through a separate stab neck skin incision. Muscles and fascia were closed with 1 Vicryl, subcutaneous tissue with 3 Vicryl, and skin had been intradermal 3 Vicryl stitches. The patient tolerated the procedure. After procedure, mobilized to the recovery room in stabilized condition. Raphael Montes MD [facility] # [id number]
[2017-11-05] MEDS: ceFAZolin 2 GM in Sodium Chloride 0.9% 100 ML IVPB SCH (17:34)
[2017-11-05] MEDS ORDERED: Alum-Mag Hydrox-Simethicone Susp (30 mL) PO PRN (17:35)
[2017-11-06] MEDS: ceFAZolin 2 GM in Sodium Chloride 0.9% 100 ML IVPB SCH ×3 (00:49→16:51)
[2017-11-06 06:45] LABS: MEAN CELL VOLUME 89.2 fl (81.0-99.0); MEAN CORPUSCULAR HEMOGLOBIN 28.4 pg (27.0-31.0); MEAN CORPUSCULAR HGB CONC 31.8 g/dL (33.0-37.0); RBC 3.87 Mil/uL (3.80-5.20); RED CELL DISTRIBUTION WIDTH 16.4 % (11.5-14.5); WHITE BLOOD COUNT 8.5 K/uL (4.8-10.8)
[2017-11-06 07:41] LABS: BLOOD UREA NITROGEN 7 mg/dl (7-17); CALCIUM 8.9 mg/dL (8.4-10.2); GFR AFRICAN-AMERICAN > 60; GFR NON-AFRICAN AMERICAN > 60
--- NOTE | 2017-11-06 09:17 | CP.PCM.PN ---
Subjective - Date & Time of Evaluation Date of Evaluation: 11/06/17 Time of Evaluation: 09:13 - Subjective Subjective: Patient seen and examined at bedside. In mod to pain this AM and had difficulty sleeping 2nd to pain. Pain and paresthesias to LLE has improved postop. No acute events overnight. Objective - Vital Signs/Intake and Output Vital Signs (last 24 hours): Temp Pulse Resp BP Pulse Ox 98.7 F 91 H 18 120/76 96 11/06/17 08:05 11/06/17 08:05 11/06/17 08:05 11/06/17 08:05 11/06/17 08:05 Intake and Output: 11/06/17 11/06/17 06:59 18:59 Intake Total 900 Output Total 740 Balance 160 - Medications Medications: Current Medications Acetaminophen (Tylenol 325mg Tab) 650 mg PO Q4 PRN PRN Reason: Fever 101 degrees fahrenheit Al Hydrox/Mg Hydrox/Simethicone (Maalox Plus 30 Ml) 30 ml PO Q6 PRN PRN Reason: Indigestion / Heartburn Last Admin: 11/05/17 18:29 Dose: 30 ml Docusate Sodium (Colace) 100 mg PO BID [facility] Last Admin: 11/05/17 17:32 Dose: 100 mg Cefazolin Sodium 2 gm/ Sodium (Chloride) 100 mls @ 100 mls/hr IVPB Q8 [facility] PRN Reason: Protocol Stop: 11/06/17 17:59 Last Admin: 11/06/17 00:49 Dose: 100 mls/hr Sodium Chloride (Sodium Chloride 0.9%) 1,000 mls @ 80 mls/hr IV .[id number] [facility] Stop: 11/06/17 11:34 Last Admin: 11/05/17 22:26 Dose: 80 mls/hr Insulin Human Lispro (Humalog) 0 units SC ACCU-CHECK [facility] PRN Reason: Protocol Last Admin: 11/05/17 22:27 Dose: Not Given Morphine Sulfate (Morphine) 2 mg IVP Q4 PRN PRN Reason: Pain, severe (8-10) Last Admin: 11/06/17 06:16 Dose: 2 mg Morphine Sulfate (Morphine) 2 mg IVP Q6 PRN PRN Reason: Pain, moderate (4-7) Last Admin: 11/06/17 02:34 Dose: 2 mg Ondansetron HCl (Zofran Inj) 4 mg IVP ONCE PRN PRN Reason: Nausea/Vomiting Last Admin: 11/05/17 21:39 Dose: 4 mg Oxycodone/Acetaminophen (Percocet 5/325 Mg Tab) 1 tab PO Q6 PRN PRN Reason: Pain, Mild (1-3) Stop: 11/08/17 16:01 Pantoprazole Sodium (Protonix Inj) 40 mg IVP DAILY [facility] Last Admin: 11/05/17 18:22 Dose: 40 mg Zolpidem Tartrate (Ambien) 10 mg PO HS PRN PRN Reason: Insomnia Last Admin: 11/05/17 22:25 Dose: 10 mg - Labs Labs: 11/06/17 06:25 11/06/17 06:20 PT 10.9 Seconds (9.8-13.1) 11/05/17 05:55 INR 1.0 (0.9-1.2) 11/05/17 05:55 APTT 23.9 Seconds (25.6-37.1) L 11/05/17 05:55 - Extremities Exam Additional comments: Dressings with scant sangiunous drainage surrounding drain sites x 2. ELIJAH drains intact with mild sangiunous drainage. + tenderness. abd binder intact sensation intact SP/DP/TN motor intact EHL/FHL/TA/G pedal pulses intact neg babinski b/l Assessment and Plan (1) Lumbar disc herniation with radiculopathy Assessment & Plan: POD#1 s/p L4-5 laminotomy with segundo fusion -Will add oxycontin to pain regimen -monitor drain output, may remove kevin AM -PT/OT WBAT -keep abd binder on -d/c planning -above d/w Dr. Montes in agreement Status: Chronic
[2017-11-06] MEDS: Insulin Lispro (humaLOG) 100 Units/ml Inj SC SCH ×4 (09:47→23:57)
[2017-11-06] MEDS: oxyCODONE 10 mg ER Tab (oxyCONTIN) PO SCH ×2 (10:35→20:14)
--- NOTE | 2017-11-06 13:58 | CP.PCM.PN ---
Subjective - Date & Time of Evaluation Date of Evaluation: 11/06/17 Time of Evaluation: 10:40 - Subjective Subjective: F/U Acute on chronic low Back pain Objective - Vital Signs/Intake and Output Vital Signs (last 24 hours): Temp Pulse Resp BP Pulse Ox 98.9 F 91 H 18 126/68 97 11/06/17 12:12 11/06/17 12:12 11/06/17 12:12 11/06/17 12:12 11/06/17 12:12 Intake and Output: 11/06/17 11/06/17 06:59 18:59 Intake Total 900 Output Total 740 Balance 160 - Medications Medications: Current Medications Acetaminophen (Tylenol 325mg Tab) 650 mg PO Q4 PRN PRN Reason: Fever 101 degrees fahrenheit Al Hydrox/Mg Hydrox/Simethicone (Maalox Plus 30 Ml) 30 ml PO Q6 PRN PRN Reason: Indigestion / Heartburn Last Admin: 11/05/17 18:29 Dose: 30 ml Docusate Sodium (Colace) 100 mg PO BID [facility] Last Admin: 11/06/17 09:44 Dose: 100 mg Cefazolin Sodium 2 gm/ Sodium (Chloride) 100 mls @ 100 mls/hr IVPB Q8 [facility] PRN Reason: Protocol Stop: 11/06/17 17:59 Last Admin: 11/06/17 09:44 Dose: 100 mls/hr Insulin Human Lispro (Humalog) 0 units SC ACCU-CHECK [facility] PRN Reason: Protocol Last Admin: 11/06/17 11:53 Dose: 2 units Morphine Sulfate (Morphine) 4 mg IVP Q3 PRN PRN Reason: Pain, severe (8-10) Ondansetron HCl (Zofran Inj) 4 mg IVP ONCE PRN PRN Reason: Nausea/Vomiting Last Admin: 11/05/17 21:39 Dose: 4 mg Ondansetron HCl (Zofran Inj) 4 mg IVP Q6 PRN PRN Reason: Nausea/Vomiting Oxycodone HCl (Oxycontin Extended Release Tab) 10 mg PO Q12 [facility] Stop: 11/09/17 09:31 Last Admin: 11/06/17 10:35 Dose: 10 mg Oxycodone/Acetaminophen (Percocet 5/325 Mg Tab) 1 tab PO Q6 PRN PRN Reason: Pain, Mild (1-3) Stop: 11/08/17 16:01 Pantoprazole Sodium (Protonix Inj) 40 mg IVP DAILY [facility] Last Admin: 11/06/17 09:45 Dose: 40 mg Zolpidem Tartrate (Ambien) 10 mg PO HS PRN PRN Reason: Insomnia Last Admin: 11/05/17 22:25 Dose: 10 mg - Labs Labs: 11/06/17 06:25 11/06/17 06:20 PT 10.9 Seconds (9.8-13.1) 11/05/17 05:55 INR 1.0 (0.9-1.2) 11/05/17 05:55 APTT 23.9 Seconds (25.6-37.1) L 11/05/17 05:55 - Constitutional Appears: No Acute Distress - Eye Exam Eye Exam: PERRL - ENT Exam ENT Exam: Normal Exam - Neck Exam Neck Exam: Normal Inspection - Respiratory Exam Respiratory Exam: Clear to Ausculation Bilateral - Cardiovascular Exam Cardiovascular Exam: REGULAR RHYTHM - GI/Abdominal Exam GI & Abdominal Exam: Soft, Normal Bowel Sounds - Extremities Exam Extremities Exam: Normal Inspection - Back Exam Back Exam: tenderness Additional comments: Surgical incision, drainage in place. - Neurological Exam Neurological Exam: CN II-XII Intact, Oriented x3. absent: Motor Sensory Deficit Additional comments: decreased sensation distal legs feet. - Psychiatric Exam Psychiatric exam: Anxious - Skin Skin Exam: Warm Assessment and Plan (1) Acute exacerbation of chronic low back pain Status: Acute (2) Lumbar disc herniation with radiculopathy Status: Chronic (3) DM type 2 (diabetes mellitus, type 2) Status: Acute (4) DM neuropathy, type II diabetes mellitus Status: Acute (5) Hypercholesterolemia Status: Chronic (6) Vitamin D deficiency Status: Acute (7) Anxiety Status: Chronic (8) S/P lumbar laminectomy Status: Acute
[2017-11-07 06:25] LABS: HEMOGLOBIN 11.4 g/dL (12.0-16.0); MEAN CELL VOLUME 90.7 fl (81.0-99.0); MEAN CORPUSCULAR HEMOGLOBIN 28.7 pg (27.0-31.0); MEAN CORPUSCULAR HGB CONC 31.6 g/dL (33.0-37.0); RBC 3.98 Mil/uL (3.80-5.20); RED CELL DISTRIBUTION WIDTH 17.1 % (11.5-14.5)
[2017-11-07 06:57] LABS: BLOOD UREA NITROGEN 9 mg/dl (7-17); CALCIUM 9.3 mg/dL (8.4-10.2); GFR AFRICAN-AMERICAN > 60; GFR NON-AFRICAN AMERICAN > 60
[2017-11-07] MEDS: oxyCODONE 10 mg ER Tab (oxyCONTIN) PO SCH ×3 (08:21→17:22)
[2017-11-07] MEDS: Insulin Lispro (humaLOG) 100 Units/ml Inj SC SCH ×4 (08:22→23:10)
[2017-11-07] MEDS ORDERED: Dexamethasone 6 MG in Sodium Chloride 0.9% 50 ML IV ONE (08:35)
--- NOTE | 2017-11-07 08:37 | CP.PCM.CON ---
History of Present Illness - History of Present Illness History of Present Illness: 67 yo woman well known to me from pain clinic is s/p lumbar fusion, POD #2. Patient has history of lumbar radiculopathy, s/p multiple injections and laminectomy previously, but was never on opioid therapy. Her regimen included Tramadol and Neurontin only. She is complaining of pain across her back, but is currently not experiencing any radicular symptoms like before. She's on Oxycontin, Percocet and Morphine IV, but despite the regimen pain is still severe. She tolerated Oxycontin well but complains of some nausea with Morphine. Past Patient History - Past Medical History & Family History Past Medical History?: Yes Past Family History: Reviewed and not pertinent - Past Social History Smoking Status: Never Smoked Drugs: Denies - CARDIAC Hx Cardiac Disorders: Yes (HTN, high cholesterol,) - PULMONARY Hx Respiratory Disorders: No - NEUROLOGICAL Hx Neurological Disorder: No - HEENT Hx HEENT Problems: No Other/Comment: Excision of cyst R eye - RENAL Hx Chronic Kidney Disease: No - ENDOCRINE/METABOLIC Hx Endocrine Disorders: Yes (DM, hyperthyroidism) - HEMATOLOGICAL/ONCOLOGICAL Hx Blood Disorders: Yes (anemia) - INTEGUMENTARY Hx Dermatological Problems: No Other/Comment: Excision of neuroma david feet, Excision of sebaceous L shoulder - MUSCULOSKELETAL/RHEUMATOLOGICAL Hx Musculoskeletal Disorders: Yes (arthritis, back pain, herniated disk) - GASTROINTESTINAL Hx Gastrointestinal Disorders: Yes Hx Gastroesophageal Reflux: Yes Other/Comment: GERD - GENITOURINARY/GYNECOLOGICAL Hx Genitourinary Disorders: No - PSYCHIATRIC Hx Psychophysiologic Disorder: No Hx Emotional Abuse: No Hx Physical Abuse: No Hx Substance Use: No - SURGICAL HISTORY Hx Surgeries: Yes Hx Eye Surgery: Yes (LASIK SX RT EYE 3 WEEKS AGO) Hx Musculoskeletal Surgery: Yes (BACK SURGERY) Hx Orthopedic Surgery: Yes (R shoulder sx) Other/Comment: MULTIPLE EPIDURALS/DAVID FOOT SURGERYX5/RIGHT SHOULDER SURGERY - ANESTHESIA Hx Anesthesia: Yes Hx Anesthesia Reactions: No Hx Malignant Hyperthermia: No Meds Allergies/Adverse Reactions: Allergies Allergy/AdvReac Type Severity Reaction Status Date / Time No Known Allergies Allergy Verified 09/24/17 10:22 - Medications Medications: Current Medications Acetaminophen (Tylenol 325mg Tab) 650 mg PO Q4 PRN PRN Reason: Fever 101 degrees fahrenheit Al Hydrox/Mg Hydrox/Simethicone (Maalox Plus 30 Ml) 30 ml PO Q6 PRN PRN Reason: Indigestion / Heartburn Last Admin: 11/05/17 18:29 Dose: 30 ml Docusate Sodium (Colace) 100 mg PO BID [facility] Last Admin: 11/07/17 08:23 Dose: 100 mg Insulin Human Lispro (Humalog) 0 units SC ACCU-CHECK [facility] PRN Reason: Protocol Last Admin: 11/07/17 08:22 Dose: Not Given Morphine Sulfate (Morphine) 4 mg IVP Q3 PRN PRN Reason: Pain, severe (8-10) Last Admin: 11/07/17 04:30 Dose: 4 mg Ondansetron HCl (Zofran Inj) 4 mg IVP ONCE PRN PRN Reason: Nausea/Vomiting Last Admin: 11/05/17 21:39 Dose: 4 mg Ondansetron HCl (Zofran Inj) 4 mg IVP Q6 PRN PRN Reason: Nausea/Vomiting Oxycodone HCl (Oxycontin Extended Release Tab) 10 mg PO Q12 [facility] Stop: 11/09/17 09:31 Last Admin: 11/07/17 08:21 Dose: 10 mg Oxycodone/Acetaminophen (Percocet 5/325 Mg Tab) 1 tab PO Q6 PRN PRN Reason: Pain, Mild (1-3) Stop: 11/08/17 16:01 Pantoprazole Sodium (Protonix Inj) 40 mg IVP DAILY [facility] Last Admin: 11/07/17 08:24 Dose: 40 mg Zolpidem Tartrate (Ambien) 10 mg PO HS PRN PRN Reason: Insomnia Last Admin: 11/05/17 22:25 Dose: 10 mg Physical Exam - Back Exam Additional comments: Dressing intact. TTP diffusely. Results - Vital Signs Recent Vital Signs: Last Vital Signs Temp 98.1 F 11/07/17 07:37 Pulse 90 11/07/17 07:37 Resp 18 11/07/17 07:37 BP 137/77 11/07/17 07:37 Pulse Ox 94 L 11/07/17 07:37 - Labs Result Diagrams: 11/07/17 06:00 11/07/17 06:00 Labs: Laboratory Results - last 24 hr 11/06/17 11/06/17 11/06/17 11:16 16:06 21:25 WBC RBC Hgb Hct MCV MCH MCHC RDW Plt Count Sodium Potassium Chloride Carbon Dioxide Anion Gap BUN Creatinine Est GFR ( Amer) Est GFR (Non-Af Amer) POC Glucose (mg/dL) 162 H 240 H 134 H Random Glucose Calcium 11/07/17 11/07/17 11/07/17 06:00 06:00 06:34 WBC 9.0 RBC 3.98 Hgb 11.4 L Hct 36.0 MCV 90.7 MCH 28.7 MCHC 31.6 L RDW 17.1 H Plt Count 272 Sodium 141 Potassium 3.9 Chloride 101 Carbon Dioxide 20 L Anion Gap 24 H BUN 9 Creatinine 0.6 L Est GFR ( Amer) > 60 Est GFR (Non-Af Amer) > 60 POC Glucose (mg/dL) 133 H Random Glucose 160 H Calcium 9.3 Assessment & Plan (1) Lumbar disc herniation with radiculopathy Assessment and Plan: 67 yo woman s/p lumbar fusion, POD #2. - increase Oxycontin to 10mg q8h - d/c Morphine IV, change Percocet to Oxycodone 10mg q6h PRN - restart Neurontin, start at 600mg q8h Status: Chronic Priority: High
[2017-11-07] MEDS ORDERED: Dexamethasone 4 mg/1 ml IVP ONE (08:45)
[2017-11-07] MEDS: oxyCODONE 10 mg Immediate Release Tab PO PRN ×2 (12:38→21:02)
[2017-11-07] MEDS ORDERED: Bisacodyl 5mg EC Tab PO PRN (12:48)
--- NOTE | 2017-11-07 12:57 | CP.PCM.PN ---
Subjective - Date & Time of Evaluation Date of Evaluation: 11/07/17 Time of Evaluation: 12:56 - Subjective Subjective: Patient complaining of back pain and constipation. She says she still has some pain down her left leg, but it is much better than prior to the surgery. Objective - Vital Signs/Intake and Output Vital Signs (last 24 hours): Temp Pulse Resp BP Pulse Ox 97.5 F L 96 H 18 110/73 94 L 11/07/17 12:46 11/07/17 12:46 11/07/17 12:46 11/07/17 12:46 11/07/17 12:46 - Medications Medications: Current Medications Acetaminophen (Tylenol 325mg Tab) 650 mg PO Q4 PRN PRN Reason: Fever 101 degrees fahrenheit Al Hydrox/Mg Hydrox/Simethicone (Maalox Plus 30 Ml) 30 ml PO Q6 PRN PRN Reason: Indigestion / Heartburn Last Admin: 11/05/17 18:29 Dose: 30 ml Bisacodyl (Dulcolax) 5 mg PO HS PRN PRN Reason: Constipation Docusate Sodium (Colace) 100 mg PO BID [facility] Last Admin: 11/07/17 08:23 Dose: 100 mg Gabapentin (Neurontin) 600 mg PO TID [facility] Last Admin: 11/07/17 12:39 Dose: 600 mg Insulin Human Lispro (Humalog) 0 units SC ACCU-CHECK [facility] PRN Reason: Protocol Last Admin: 11/07/17 12:40 Dose: 4 units Lactulose (Enulose) 10 gm PO DAILY PRN PRN Reason: Constipation Ondansetron HCl (Zofran Inj) 4 mg IVP ONCE PRN PRN Reason: Nausea/Vomiting Last Admin: 11/05/17 21:39 Dose: 4 mg Ondansetron HCl (Zofran Inj) 4 mg IVP Q6 PRN PRN Reason: Nausea/Vomiting Oxycodone HCl (Oxycodone Immediate Release Tab) 10 mg PO Q6 PRN PRN Reason: Pain, severe (8-10) Last Admin: 11/07/17 12:38 Dose: 10 mg Oxycodone HCl (Oxycontin Extended Release Tab) 10 mg PO Q8 [facility] Stop: 11/10/17 09:01 Last Admin: 11/07/17 10:24 Dose: Not Given Pantoprazole Sodium (Protonix Inj) 40 mg IVP DAILY [facility] Last Admin: 11/07/17 08:24 Dose: 40 mg Zolpidem Tartrate (Ambien) 10 mg PO HS PRN PRN Reason: Insomnia Last Admin: 11/05/17 22:25 Dose: 10 mg - Labs Labs: 11/07/17 06:00 11/07/17 06:00 PT 10.9 Seconds (9.8-13.1) 11/05/17 05:55 INR 1.0 (0.9-1.2) 11/05/17 05:55 APTT 23.9 Seconds (25.6-37.1) L 11/05/17 05:55 - Back Exam Additional comments: Dressings with scant sangiunous drainage surrounding drain sites x 2. ELIJAH drains intact with mild sangiunous drainage, noted approx 20cc in drains at this time. + tenderness. abd binder intact sensation intact SP/DP/TN motor intact EHL/FHL/TA/G pedal pulses intact calves soft NT neg homans t Assessment and Plan (1) Lumbar spondylosis with myelopathy Assessment & Plan: POD#2 s/p L4-5 laminotomy with segundo fusion -Will add oxycontin to pain regimen -monitor drain output -PT/OT WBAT -keep abd binder on -d/c planning -VTE proph -dulcolax -encourage OOB -d/w Dr. Montes, agrees with above Status: Acute
--- NOTE | 2017-11-07 14:07 | CP.PCM.PN ---
Subjective - Date & Time of Evaluation Date of Evaluation: 11/07/17 Time of Evaluation: 13:00 - Subjective Subjective: F/U Acute on chronic low back pain Complains of low back pain, partially relieved with oxycodone, mild radiation of pain to the left lower extremity Objective - Vital Signs/Intake and Output Vital Signs (last 24 hours): Temp Pulse Resp BP Pulse Ox 97.5 F L 96 H 18 110/73 94 L 11/07/17 12:46 11/07/17 12:46 11/07/17 12:46 11/07/17 12:46 11/07/17 12:46 - Medications Medications: Current Medications Acetaminophen (Tylenol 325mg Tab) 650 mg PO Q4 PRN PRN Reason: Fever 101 degrees fahrenheit Al Hydrox/Mg Hydrox/Simethicone (Maalox Plus 30 Ml) 30 ml PO Q6 PRN PRN Reason: Indigestion / Heartburn Last Admin: 11/05/17 18:29 Dose: 30 ml Bisacodyl (Dulcolax) 5 mg PO HS PRN PRN Reason: Constipation Docusate Sodium (Colace) 100 mg PO BID [facility] Last Admin: 11/07/17 08:23 Dose: 100 mg Gabapentin (Neurontin) 600 mg PO TID [facility] Last Admin: 11/07/17 12:39 Dose: 600 mg Insulin Human Lispro (Humalog) 0 units SC ACCU-CHECK [facility] PRN Reason: Protocol Last Admin: 11/07/17 12:40 Dose: 4 units Lactulose (Enulose) 10 gm PO DAILY PRN PRN Reason: Constipation Ondansetron HCl (Zofran Inj) 4 mg IVP ONCE PRN PRN Reason: Nausea/Vomiting Last Admin: 11/05/17 21:39 Dose: 4 mg Ondansetron HCl (Zofran Inj) 4 mg IVP Q6 PRN PRN Reason: Nausea/Vomiting Oxycodone HCl (Oxycodone Immediate Release Tab) 10 mg PO Q6 PRN PRN Reason: Pain, severe (8-10) Last Admin: 11/07/17 12:38 Dose: 10 mg Oxycodone HCl (Oxycontin Extended Release Tab) 10 mg PO Q8 [facility] Stop: 11/10/17 09:01 Last Admin: 11/07/17 10:24 Dose: Not Given Pantoprazole Sodium (Protonix Inj) 40 mg IVP DAILY [facility] Last Admin: 11/07/17 08:24 Dose: 40 mg Zolpidem Tartrate (Ambien) 10 mg PO HS PRN PRN Reason: Insomnia Last Admin: 11/05/17 22:25 Dose: 10 mg - Labs Labs: 11/07/17 06:00 11/07/17 06:00 PT 10.9 Seconds (9.8-13.1) 11/05/17 05:55 INR 1.0 (0.9-1.2) 11/05/17 05:55 APTT 23.9 Seconds (25.6-37.1) L 11/05/17 05:55 - Constitutional Appears: No Acute Distress - Head Exam Head Exam: NORMAL INSPECTION - Eye Exam Eye Exam: PERRL - ENT Exam ENT Exam: Normal Exam - Neck Exam Neck Exam: Normal Inspection - Respiratory Exam Respiratory Exam: Clear to Ausculation Bilateral - Cardiovascular Exam Cardiovascular Exam: REGULAR RHYTHM - GI/Abdominal Exam GI & Abdominal Exam: Soft, Normal Bowel Sounds - Extremities Exam Extremities Exam: Normal Inspection - Back Exam Additional comments: Dressing in place [address] - Neurological Exam Neurological Exam: CN II-XII Intact, Oriented x3. absent: Motor Sensory Deficit Additional comments: Decreased sensation distal legs/feet, no motor deficit - Psychiatric Exam Psychiatric exam: Anxious - Skin Skin Exam: Warm Assessment and Plan (1) S/P lumbar laminectomy Status: Acute (2) Acute exacerbation of chronic low back pain Status: Acute (3) Lumbar disc herniation with radiculopathy Status: Chronic (4) DM type 2 (diabetes mellitus, type 2) Status: Acute (5) DM neuropathy, type II diabetes mellitus Status: Acute (6) Hypercholesterolemia Status: Chronic (7) Vitamin D deficiency Status: Acute (8) Anxiety Status: Chronic - Assessment and Plan (Free Text) Plan: Continue oxycodone rest of the treatment
[2017-11-08] MEDS: oxyCODONE 10 mg ER Tab (oxyCONTIN) PO SCH ×3 (00:53→16:42)
[2017-11-08] MEDS: Insulin Lispro (humaLOG) 100 Units/ml Inj SC SCH ×4 (09:13→22:47)
--- NOTE | 2017-11-08 15:25 | CP.PCM.PN ---
Subjective - Date & Time of Evaluation Date of Evaluation: 11/08/17 Time of Evaluation: 11:00 - Subjective Subjective: F/U Acute Back pain Low back pain relieved with quadrant pain medication Objective - Vital Signs/Intake and Output Vital Signs (last 24 hours): Temp Pulse Resp BP Pulse Ox 97.5 F L 89 20 130/75 96 11/08/17 12:00 11/08/17 12:00 11/08/17 12:00 11/08/17 12:00 11/08/17 12:00 Intake and Output: 11/08/17 11/08/17 06:59 18:59 Intake Total 200 Output Total 35 Balance 165 - Medications Medications: Current Medications Acetaminophen (Tylenol 325mg Tab) 650 mg PO Q4 PRN PRN Reason: Fever 101 degrees fahrenheit Al Hydrox/Mg Hydrox/Simethicone (Maalox Plus 30 Ml) 30 ml PO Q6 PRN PRN Reason: Indigestion / Heartburn Last Admin: 11/05/17 18:29 Dose: 30 ml Bisacodyl (Dulcolax) 5 mg PO HS PRN PRN Reason: Constipation Docusate Sodium (Colace) 100 mg PO BID [facility] Last Admin: 11/08/17 09:12 Dose: 100 mg Gabapentin (Neurontin) 600 mg PO TID [facility] Last Admin: 11/08/17 12:23 Dose: 600 mg Insulin Human Lispro (Humalog) 0 units SC ACCU-CHECK [facility] PRN Reason: Protocol Last Admin: 11/08/17 11:01 Dose: 6 units Lactulose (Enulose) 10 gm PO DAILY PRN PRN Reason: Constipation Ondansetron HCl (Zofran Inj) 4 mg IVP ONCE PRN PRN Reason: Nausea/Vomiting Last Admin: 11/05/17 21:39 Dose: 4 mg Ondansetron HCl (Zofran Inj) 4 mg IVP Q6 PRN PRN Reason: Nausea/Vomiting Oxycodone HCl (Oxycodone Immediate Release Tab) 10 mg PO Q6 PRN PRN Reason: Pain, severe (8-10) Last Admin: 11/07/17 21:02 Dose: 10 mg Oxycodone HCl (Oxycontin Extended Release Tab) 10 mg PO Q8 [facility] Stop: 11/10/17 09:01 Last Admin: 11/08/17 09:15 Dose: 10 mg Pantoprazole Sodium (Protonix Inj) 40 mg IVP DAILY [facility] Last Admin: 11/08/17 09:13 Dose: 40 mg Zolpidem Tartrate (Ambien) 10 mg PO HS PRN PRN Reason: Insomnia Last Admin: 11/07/17 21:38 Dose: 10 mg - Labs Labs: 11/07/17 06:00 11/07/17 06:00 PT 10.9 Seconds (9.8-13.1) 11/05/17 05:55 INR 1.0 (0.9-1.2) 11/05/17 05:55 APTT 23.9 Seconds (25.6-37.1) L 11/05/17 05:55 - Constitutional Appears: No Acute Distress - Head Exam Head Exam: NORMAL INSPECTION - Eye Exam Eye Exam: PERRL - ENT Exam ENT Exam: Normal Exam - Neck Exam Neck Exam: Normal Inspection - Respiratory Exam Respiratory Exam: NORMAL BREATHING PATTERN - Cardiovascular Exam Cardiovascular Exam: REGULAR RHYTHM - GI/Abdominal Exam GI & Abdominal Exam: Soft, Normal Bowel Sounds - Extremities Exam Extremities Exam: Normal Inspection - Back Exam Additional comments: Mild tenderness, dressing in place, 2 ELIJAH , with minimal drainage in bags - Neurological Exam Neurological Exam: Alert, CN II-XII Intact, Oriented x3 Additional comments: No motor or sensory deficit, decrease in sensation in distal legs , feet legs. (old findings prior to operation) Assessment and Plan (1) Acute exacerbation of chronic low back pain Status: Acute (2) Lumbar disc herniation with radiculopathy Status: Chronic (3) DM type 2 (diabetes mellitus, type 2) Status: Acute (4) DM neuropathy, type II diabetes mellitus Status: Acute (5) Hypercholesterolemia Status: Chronic (6) Vitamin D deficiency Status: Acute (7) Anxiety Status: Chronic (8) S/P lumbar laminectomy Status: Acute
[2017-11-08] MEDS: oxyCODONE 10 mg Immediate Release Tab PO PRN (22:05)
[2017-11-09] MEDS: oxyCODONE 10 mg ER Tab (oxyCONTIN) PO SCH ×3 (00:56→16:36)
[2017-11-09] MEDS: oxyCODONE 10 mg Immediate Release Tab PO PRN ×3 (08:39→18:38)
[2017-11-09] MEDS: Lactulose 10 gm/15 ml Syrup PO PRN (08:39)
[2017-11-09] MEDS: Insulin Lispro (humaLOG) 100 Units/ml Inj SC SCH ×4 (08:44→22:10)
--- NOTE | 2017-11-09 14:42 | CP.PCM.PN ---
Subjective - Date & Time of Evaluation Date of Evaluation: 11/09/17 Time of Evaluation: 11:40 - Subjective Subjective: F/U Acute back pain Objective - Vital Signs/Intake and Output Vital Signs (last 24 hours): Temp Pulse Resp BP Pulse Ox 97.8 F 84 20 106/63 98 11/09/17 13:52 11/09/17 13:52 11/09/17 13:52 11/09/17 13:52 11/09/17 13:52 Intake and Output: 11/09/17 11/09/17 06:59 18:59 Intake Total 200 Output Total 20 Balance 180 - Medications Medications: Current Medications Acetaminophen (Tylenol 325mg Tab) 650 mg PO Q4 PRN PRN Reason: Fever 101 degrees fahrenheit Al Hydrox/Mg Hydrox/Simethicone (Maalox Plus 30 Ml) 30 ml PO Q6 PRN PRN Reason: Indigestion / Heartburn Last Admin: 11/05/17 18:29 Dose: 30 ml Bisacodyl (Dulcolax) 5 mg PO HS PRN PRN Reason: Constipation Docusate Sodium (Colace) 100 mg PO BID [facility] Last Admin: 11/09/17 08:39 Dose: 100 mg Docusate Sodium (Colace) 200 mg PO BID [facility] Gabapentin (Neurontin) 600 mg PO TID [facility] Last Admin: 11/09/17 12:35 Dose: 600 mg Insulin Human Lispro (Humalog) 0 units SC ACCU-CHECK [facility] PRN Reason: Protocol Last Admin: 11/09/17 12:36 Dose: 4 units Lactulose (Enulose) 10 gm PO DAILY PRN PRN Reason: Constipation Last Admin: 11/09/17 08:39 Dose: 10 gm Ondansetron HCl (Zofran Inj) 4 mg IVP ONCE PRN PRN Reason: Nausea/Vomiting Last Admin: 11/05/17 21:39 Dose: 4 mg Ondansetron HCl (Zofran Inj) 4 mg IVP Q6 PRN PRN Reason: Nausea/Vomiting Oxycodone HCl (Oxycodone Immediate Release Tab) 10 mg PO Q6 PRN PRN Reason: Pain, severe (8-10) Last Admin: 11/09/17 08:48 Dose: 10 mg Oxycodone HCl (Oxycontin Extended Release Tab) 10 mg PO Q8 [facility] Stop: 11/10/17 09:01 Last Admin: 11/09/17 09:38 Dose: 10 mg Pantoprazole Sodium (Protonix Inj) 40 mg IVP DAILY [facility] Last Admin: 11/09/17 08:39 Dose: 40 mg Sodium Phosphate (Fleet Enema) 135 ml NV ONCE ONE Stop: 11/09/17 18:01 Zolpidem Tartrate (Ambien) 10 mg PO HS PRN PRN Reason: Insomnia Last Admin: 11/07/17 21:38 Dose: 10 mg - Labs Labs: 11/07/17 06:00 11/07/17 06:00 PT 10.9 Seconds (9.8-13.1) 11/05/17 05:55 INR 1.0 (0.9-1.2) 11/05/17 05:55 APTT 23.9 Seconds (25.6-37.1) L 11/05/17 05:55 - Constitutional Appears: No Acute Distress - Head Exam Head Exam: NORMAL INSPECTION - Eye Exam Eye Exam: PERRL - ENT Exam ENT Exam: Normal Exam - Neck Exam Neck Exam: Normal Inspection - Respiratory Exam Respiratory Exam: NORMAL BREATHING PATTERN - Cardiovascular Exam Cardiovascular Exam: REGULAR RHYTHM - GI/Abdominal Exam GI & Abdominal Exam: Soft, Normal Bowel Sounds - Extremities Exam Extremities Exam: Normal Inspection - Back Exam Additional comments: Mild tenderness, dressing in place, 2 ELIJAH with minimal serosanguineous drainage in bags. - Neurological Exam Neurological Exam: Alert, CN II-XII Intact, Oriented x3 Additional comments: Decreased sensation distal legs/feet - Psychiatric Exam Psychiatric exam: Normal Mood - Skin Skin Exam: Warm Assessment and Plan (1) Acute exacerbation of chronic low back pain Status: Acute (2) Lumbar disc herniation with radiculopathy Status: Chronic (3) DM type 2 (diabetes mellitus, type 2) Status: Acute (4) DM neuropathy, type II diabetes mellitus Status: Acute (5) Hypercholesterolemia Status: Chronic (6) Vitamin D deficiency Status: Acute (7) Anxiety Status: Chronic (8) S/P lumbar laminectomy Status: Acute
[2017-11-10] MEDS: oxyCODONE 10 mg ER Tab (oxyCONTIN) PO SCH ×2 (01:22→08:26)
[2017-11-10] MEDS ORDERED: Magnesium Citrate Oral SOL (300 ml) PO ONE (07:53)
[2017-11-10 08:13] VITALS: RESP 20
[2017-11-10] MEDS: Insulin Lispro (humaLOG) 100 Units/ml Inj SC SCH ×3 (08:21→11:14)
--- NOTE | 2017-11-10 10:01 | CP.PCM.PN ---
Subjective - Date & Time of Evaluation Date of Evaluation: 11/10/17 Time of Evaluation: 09:00 - Subjective Subjective: Patient seen and examined OOB to chair. Pain much improved. No new complaints. Objective - Vital Signs/Intake and Output Vital Signs (last 24 hours): Temp Pulse Resp BP Pulse Ox 97.6 F 75 20 134/72 94 L 11/10/17 08:13 11/10/17 08:13 11/10/17 08:13 11/10/17 08:13 11/10/17 08:13 - Medications Medications: Current Medications Acetaminophen (Tylenol 325mg Tab) 650 mg PO Q4 PRN PRN Reason: Fever 101 degrees fahrenheit Al Hydrox/Mg Hydrox/Simethicone (Maalox Plus 30 Ml) 30 ml PO Q6 PRN PRN Reason: Indigestion / Heartburn Last Admin: 11/05/17 18:29 Dose: 30 ml Bisacodyl (Dulcolax) 5 mg PO HS PRN PRN Reason: Constipation Last Admin: 11/09/17 22:10 Dose: 5 mg Docusate Sodium (Colace) 200 mg PO BID [facility] Last Admin: 11/10/17 08:21 Dose: 200 mg Gabapentin (Neurontin) 600 mg PO TID [facility] Last Admin: 11/10/17 08:22 Dose: 600 mg Insulin Human Lispro (Humalog) 0 units SC ACCU-CHECK [facility] PRN Reason: Protocol Last Admin: 11/10/17 08:22 Dose: 3 units Lactulose (Enulose) 10 gm PO DAILY PRN PRN Reason: Constipation Last Admin: 11/09/17 08:39 Dose: 10 gm Ondansetron HCl (Zofran Inj) 4 mg IVP ONCE PRN PRN Reason: Nausea/Vomiting Last Admin: 11/05/17 21:39 Dose: 4 mg Ondansetron HCl (Zofran Inj) 4 mg IVP Q6 PRN PRN Reason: Nausea/Vomiting Oxycodone HCl (Oxycodone Immediate Release Tab) 10 mg PO Q6 PRN PRN Reason: Pain, severe (8-10) Last Admin: 11/09/17 18:38 Dose: 10 mg Pantoprazole Sodium (Protonix Inj) 40 mg IVP DAILY [facility] Last Admin: 11/10/17 08:30 Dose: 40 mg - Labs Labs: 11/07/17 06:00 11/07/17 06:00 PT 10.9 Seconds (9.8-13.1) 11/05/17 05:55 INR 1.0 (0.9-1.2) 11/05/17 05:55 APTT 23.9 Seconds (25.6-37.1) L 11/05/17 05:55 - Back Exam Additional comments: Dressings with scant sangiunous drainage surrounding drain sites x 2. ELIJAH drains intact with mild sangiunous drainage. + tenderness. abd binder intact, dressings removed revealing wound intact, ELIJAH drains removed sensation intact SP/DP/TN motor intact EHL/FHL/TA/G pedal pulses intact neg babinski b/l Assessment and Plan (1) Lumbar disc herniation with radiculopathy Assessment & Plan: POD#5 s/p L4-5 laminotomy with segundo fusion -pain well controlled -drains removed and dressings changed -PT/OT WBAT -keep abd binder on -clear to d/c from neurosurg standpoint -f/u in office 7-10 days from d/c -above d/w Dr. Montes in agreement Status: Chronic
[2017-11-10] MEDS: Lactulose 10 gm/15 ml Syrup PO PRN (11:14)
[2017-11-10] MEDS ORDERED: Ergocalciferol 50,000 Intl Units Cap PO SCH (12:15)
[2017-11-10] MEDS ORDERED: Venlafaxine 75 mg ER Cap PO SCH (12:15)
[2017-11-10 12:24] VITALS: BP 103/71; PULSE 89; TEMP 98.1; O2SAT 98
[2017-11-10] MEDS ORDERED: Pantoprazole 40 mg EC Tab PO SCH (12:30)
[2017-11-10] MEDS: oxyCODONE 10 mg Immediate Release Tab PO PRN (13:39)
--- NOTE | 2017-11-10 16:27 | CP.PCM.PN ---
Objective - Vital Signs/Intake and Output Vital Signs (last 24 hours): Temp Pulse Resp BP Pulse Ox 98.1 F 89 20 103/71 98 11/10/17 12:24 11/10/17 12:24 11/10/17 12:24 11/10/17 12:24 11/10/17 12:24 - Labs Labs: 11/07/17 06:00 11/07/17 06:00 PT 10.9 Seconds (9.8-13.1) 11/05/17 05:55 INR 1.0 (0.9-1.2) 11/05/17 05:55 APTT 23.9 Seconds (25.6-37.1) L 11/05/17 05:55 Assessment and Plan (1) Acute exacerbation of chronic low back pain Status: Acute (2) Lumbar disc herniation with radiculopathy Status: Chronic (3) DM type 2 (diabetes mellitus, type 2) Status: Acute (4) DM neuropathy, type II diabetes mellitus Status: Acute (5) Hypercholesterolemia Status: Chronic (6) Vitamin D deficiency Status: Acute (7) Anxiety Status: Chronic (8) S/P lumbar laminectomy Status: Acute
[2017-11-10] MEDS ORDERED: Insulin Detemir 100 Units/ml Inj SC SCH (17:00)
[2017-11-10] MEDS ORDERED: METFORMIN HCL 1000 MG PO SCH (17:00)
--- NOTE | 2017-11-10 17:08 | CP.PCM.DIS ---
Provider - Provider Date of Admission: 11/04/17 10:24 Attending physician: Andrae Nowak MD Time Spent in preparation of Discharge (in minutes): 35 Diagnosis - Discharge Diagnosis (1) Acute exacerbation of chronic low back pain Status: Acute Priority: High (2) Lumbar disc herniation with radiculopathy Status: Chronic Priority: High (3) DM type 2 (diabetes mellitus, type 2) Status: Acute (4) DM neuropathy, type II diabetes mellitus Status: Acute (5) Hypercholesterolemia Status: Chronic Priority: Medium (6) Vitamin D deficiency Status: Acute (7) Anxiety Status: Chronic Priority: Medium (8) S/P lumbar laminectomy Status: Acute Hospital Course - Lab Results Lab Results: Most Recent Lab Values WBC 9.0 K/uL (4.8-10.8) 11/07/17 06:00 RBC 3.98 Mil/uL (3.80-5.20) 11/07/17 06:00 Hgb 11.4 g/dL (12.0-16.0) L 11/07/17 06:00 Hct 36.0 % (34.0-47.0) 11/07/17 06:00 MCV 90.7 fl (81.0-99.0) 11/07/17 06:00 MCH 28.7 pg (27.0-31.0) 11/07/17 06:00 MCHC 31.6 g/dL (33.0-37.0) L 11/07/17 06:00 RDW 17.1 % (11.5-14.5) H 11/07/17 06:00 Plt Count 272 K/uL (130-400) 11/07/17 06:00 MPV 8.4 fl (7.2-11.7) 11/05/17 05:55 Neut % (Auto) 63.9 % (50.0-75.0) 11/05/17 05:55 Lymph % (Auto) 25.7 % (20.0-40.0) 11/05/17 05:55 [place] % (Auto) 7.9 % (0.0-10.0) 11/05/17 05:55 Eos % (Auto) 2.1 % (0.0-4.0) 11/05/17 05:55 Baso % (Auto) 0.4 % (0.0-2.0) 11/05/17 05:55 Neut # (Auto) 4.2 K/uL (1.8-7.0) 11/05/17 05:55 Lymph # (Auto) 1.7 K/uL (1.0-4.3) 11/05/17 05:55 [place] # (Auto) 0.5 K/uL (0.0-0.8) 11/05/17 05:55 Eos # (Auto) 0.1 K/uL (0.0-0.7) 11/05/17 05:55 Baso # (Auto) 0.0 K/uL (0.0-0.2) 11/05/17 05:55 PT 10.9 Seconds (9.8-13.1) 11/05/17 05:55 INR 1.0 (0.9-1.2) 11/05/17 05:55 APTT 23.9 Seconds (25.6-37.1) L 11/05/17 05:55 Sodium 141 mmol/l (132-148) 11/07/17 06:00 Potassium 3.9 MMOL/L (3.6-5.0) 11/07/17 06:00 Chloride 101 mmol/L (98-107) 11/07/17 06:00 Carbon Dioxide 20 mmol/L (22-30) L 11/07/17 06:00 Anion Gap 24 (10-20) H 11/07/17 06:00 BUN 9 mg/dl (7-17) 11/07/17 06:00 Creatinine 0.6 mg/dl (0.7-1.2) L 11/07/17 06:00 Est GFR ( Amer) > 60 11/07/17 06:00 Est GFR (Non-Af Amer) > 60 11/07/17 06:00 POC Glucose (mg/dL) 253 mg/dL (65-110) H 11/10/17 10:54 Random Glucose 160 mg/dL (65-105) H 11/07/17 06:00 Hemoglobin A1c 10.2 % (4.2-6.5) H 11/05/17 05:55 Calcium 9.3 mg/dL (8.4-10.2) 11/07/17 06:00 Total Bilirubin 0.3 mg/dl (0.2-1.3) 11/04/17 10:45 AST 23 U/L (14-36) 11/04/17 10:45 ALT 36 U/L (9-52) 11/04/17 10:45 Alkaline Phosphatase 69 U/L (38-126) 11/04/17 10:45 Total Protein 6.8 G/DL (6.3-8.2) 11/04/17 10:45 Albumin 3.8 g/dL (3.5-5.0) 11/04/17 10:45 Globulin 3.0 gm/dL (2.2-3.9) 11/04/17 10:45 Albumin/Globulin Ratio 1.3 (1.0-2.1) 11/04/17 10:45 Triglycerides 188 mg/DL (0-149) H D 11/05/17 05:55 Cholesterol 200 mg/dL (0-199) H 11/05/17 05:55 LDL Cholesterol Direct 134 mg/dL (0-129) H 11/05/17 05:55 HDL Cholesterol 41 MG/DL (30-70) 11/05/17 05:55 25-OH Vitamin D Total 36.6 NG/ML (30.0-100.0) 11/05/17 05:55 Thyroxine (T4) 6.59 ug/dl (5.5-11.0) 11/05/17 05:55 TSH 3rd Generation 3.03 mIU/ML (0.46-4.68) 11/05/17 05:55 - Date & Time of H&P Date of H&P: 11/04/17 Time of H&P: 19:00 Discharge Exam - Head Exam Head Exam: NORMAL INSPECTION - Eye Exam Eye Exam: PERRL - ENT Exam ENT Exam: Normal Exam - Neck Exam Neck exam: Normal Inspection - Respiratory Exam Respiratory Exam: NORMAL BREATHING PATTERN - Cardiovascular Exam Cardiovascular Exam: REGULAR RHYTHM - GI/Abdominal Exam GI & Abdominal Exam: Normal Bowel Sounds, Soft - Extremities Exam Extremities exam: normal inspection - Back Exam Back exam: tenderness (mild) Additional comments: dressing in place, 2 ELIJAH with minimal serosanguineous drainage in bags. - Neurological Exam Neurological exam: Altered, CN II-XII Intact, Oriented x3 Additional comments: Decreased sensation distal legs/feet. - Psychiatric Exam Psychiatric exam: Normal Mood - Skin Skin Exam: Warm Discharge Plan - Discharge Medications Prescriptions: Gabapentin [Neurontin] 600 mg PO TID #90 tab oxyCODONE [oxyCODONE Immediate Release Tab] 10 mg PO Q6H PRN #120 tab PRN Reason: Pain, Severe (8-10) Oxycodone HCl [Oxycontin] 10 mg PO Q8 #90 tab.er.12h - Follow Up Plan Condition: FAIR Disposition: HOME/ ROUTINE Patient education suggested?: Yes Instructions: Laminectomy (DC) Additional Instructions: pt. doing well, denies sob, cp, fever, chills , n/v/d sitting oob to chair- c/o intermittent pain, controlled, ambulating in room pt. cleared for discahrge to home today by and f/u with and outpatient Referrals: Raphael Montes MD [Staff Provider] - Hailey Ramirez MD [Staff Provider] -
== END 2017-11-10 14:41 | disposition home or self-care (01) | DRG 460 ==
LOC: H.ER 10:09 → H.ERHOLD 10:24 → H.MEDSURG1 15:08 → H.TEL 11-05 11:14
PROVIDERS: ADMIT Internal Medicine Pulmonary Disease; ATTEND Internal Medicine Pulmonary Disease
PROC: 0SG00K1 Fusion of Lumbar Vertebral Joint with Nonautologous Tissue Substitute, Posterior Approach, Posterior Column, Open Approach (ICD-10-PCS; principal; 2017-11-05 07:45)
DX: M51.16 Intervertebral disc disorders with radiculopathy, lumbar region (principal); E11.319 Type 2 diabetes mellitus with unspecified diabetic retinopathy without macular edema; E11.40 Type 2 diabetes mellitus with diabetic neuropathy, unspecified; E55.9 Vitamin D deficiency, unspecified; F41.9 Anxiety disorder, unspecified; I10 Essential (primary) hypertension; E78.00 Pure hypercholesterolemia, unspecified; M06.9 Rheumatoid arthritis, unspecified; G89.29 Other chronic pain; M19.90 Unspecified osteoarthritis, unspecified site; K21.9 Gastro-esophageal reflux disease without esophagitis; K59.00 Constipation, unspecified; M47.816 Spondylosis without myelopathy or radiculopathy, lumbar region

== ENCOUNTER 2018-02-10 07:16 | Emergency (ER) | payer MEDICARE, OTHER ==
[2018-02-10 07:17] VITALS: BMI 26.2
[2018-02-10 07:25] VITALS: TEMP 98.3
--- NOTE | 2018-02-10 08:00 | ED PDOC ---
HPI: General Adult Time Seen by Provider: 02/10/18 07:19 Chief Complaint (Nursing): Back Pain Chief Complaint (Provider): Body aches History Per: Patient History/Exam Limitations: no limitations Onset/Duration Of Symptoms: Days (years) Additional Complaint(s): Pt. with diffuse body aches and weakness all over. Ongoing for years. Has seen many doctors and her primary Dr. Nowak regularly. Saw Dr. Nowak for it 1 week ago and had blood work done recently as well. No chest pain, dyspnea, fever, abd pain, nausea, vomit, diarrhea. No dysuria. No numbness, tingles, incontinence, constipation. No neck pain, headaches, dizziness. Past Medical History Reviewed: Nursing Documentation, Vital Signs Vital Signs: Last Vital Signs Temp 98.3 F 02/10/18 07:21 Pulse 90 02/10/18 07:21 Resp 17 02/10/18 07:21 BP 129/77 02/10/18 07:21 Pulse Ox 97 02/10/18 07:21 - Medical History PMH: Anemia, Anxiety, Arthritis, Back Problems, Diabetes, HTN, Hypercholesterolemia, Hyperthyroidism, Hypothyroidism, Rheumatoid Arthritis, Chronic Pain Denies: Chronic Kidney Disease - Surgical History Surgical History: Back Surgery, Hernia Repair - Family History Family History: States: Unknown Family Hx - Living Arrangements Living Arrangements: With Family - Social History Alcohol: None Drugs: Denies - Home Medications Home Medications: Ambulatory Orders Medication Instructions Recorded Lactulose [Generlac] 10 gm PO DAILY 10/29/17 Empagliflozin [Jardiance] 25 mg PO DAILY 11/04/17 Ergocalciferol (Vitamin D2) 50,000 unit PO MO 11/04/17 [Vitamin D2] Gabapentin [Neurontin] 1,200 mg PO HS 11/04/17 Glimepiride [amaRYL] 4 mg PO BID 11/04/17 Insulin Detemir [Levemir] 22 unit SC BID 11/04/17 Megestrol Acetate [Megace] 30 ml PO BID 11/04/17 Memantine [Namenda] 10 mg PO Q12 11/04/17 Metformin HCl [Metformin HCl ER] 1,000 mg PO BID 11/04/17 Pantoprazole Sodium [Protonix] 40 mg PO DAILY 11/04/17 Rosuvastatin Calcium [Crestor] 10 mg PO HS 11/04/17 Venlafaxine HCl [Venlafaxine HCl 75 mg PO DAILY 11/04/17 ER] Zolpidem [Ambien] 10 mg PO HS PRN 11/04/17 rOPINIRole [Requip] 1 mg PO HS 11/04/17 traMADol/Acetaminophen [Ultracet 1 tab PO Q6 PRN 11/04/17 37.5/325 mg] Gabapentin [Neurontin] 600 mg PO TID #90 tab 11/10/17 Oxycodone HCl [Oxycontin] 10 mg PO Q8 #90 tab.er.12h 11/10/17 oxyCODONE [oxyCODONE Immediate 10 mg PO Q6H PRN #120 tab 11/10/17 Release Tab] Famotidine [Pepcid] 20 mg PO DAILY PRN #6 tab 02/10/18 Ibuprofen [Motrin] 600 mg PO TID 7 Days tab 02/10/18 - Allergies Allergies/Adverse Reactions: Allergies Allergy/AdvReac Type Severity Reaction Status Date / Time No Known Allergies Allergy Verified 02/10/18 07:47 Review of Systems ROS Statement: Except As Marked, All Systems Reviewed And Found Negative Constitutional: Positive for: Weakness Musculoskeletal: Positive for: Other (body aches) Neurological: Positive for: Weakness Physical Exam - Reviewed Nursing Documentation Reviewed: Yes Vital Signs Reviewed: Yes - Physical Exam Appears: Positive for: Well, Non-toxic, No Acute Distress Head Exam: Positive for: ATRAUMATIC, NORMAL INSPECTION, NORMOCEPHALIC Skin: Positive for: Normal Color, Warm, DRY Eye Exam: Positive for: EOMI, Normal appearance, PERRL ENT: Positive for: Normal ENT Inspection Neck: Positive for: Normal, Painless ROM Cardiovascular/Chest: Positive for: Regular Rate, Rhythm Respiratory: Positive for: CNT, Normal Breath Sounds Gastrointestinal/Abdominal: Positive for: Normal Exam, Soft. Negative for: Tenderness Back: Positive for: Normal Inspection. Negative for: L CVA Tenderness, R CVA Tenderness Extremity: Positive for: Normal ROM, Tenderness (mild the all 4 extremities, but nontender on distraction; has full ROM; no erythema or dc; straight leg b/l neg). Negative for: Pedal Edema Neurologic/Psych: Positive for: Alert, strap buckler machine II-XII, Oriented. Negative for: Motor/Sensory Deficits, Aphasia - ECG ECG: Positive for: Interpreted By Me, Viewed By Me ECG Rhythm: Positive for: Normal QRS, Normal ST Segment, Sinus Rhythm O2 Sat by Pulse Oximetry: 97 Pulse Ox Interpretation: Normal - Progress ED Course And Treament: 802: Pt. on tramadol and states not it does not work. On it for years. Pt. with chronic symptoms. Fu with pcp. AAOx3. Pain controlled. Labs reviewed in chart with no acute findings. 847: Stable. AAOx3. Chronic pain. FU with pcp. Disposition - Clinical Impression Clinical Impression: Chronic pain - Patient ED Disposition Is Patient to be Admitted: No Counseled Patient/Family Regarding: Studies Performed, Diagnosis, Need For Followup, Rx Given - Disposition Referrals: [facility] [Outside] - 02/12/18 Disposition: Routine/Home Disposition Time: 08:48 Condition: STABLE Additional Instructions: Return if not better in 3 days. Prescriptions: Famotidine [Pepcid] 20 mg PO DAILY PRN #6 tab PRN Reason: Pain Ibuprofen [Motrin] 600 mg PO TID 7 Days tab Instructions: Chronic Pain
[2018-02-10 09:09] VITALS: BP 148/67; PULSE 94; RESP 20; O2SAT 98
--- NOTE | 2018-02-10 10:09 | CARD ---
APPROVED REPORT Date of service: 02/10/2018 EKG Measurement Heart [id number] <Conclusion> Normal sinus rhythm with sinus arrhythmia Normal ECG
== END 2018-02-10 09:04 | disposition home or self-care (01) ==
LOC: H.ER 07:16
DX: G89.29 Other chronic pain (principal); E03.9 Hypothyroidism, unspecified; E11.9 Type 2 diabetes mellitus without complications; E78.00 Pure hypercholesterolemia, unspecified; I10 Essential (primary) hypertension; Z79.4 Long term (current) use of insulin; M06.9 Rheumatoid arthritis, unspecified
CPT/HCPCS: 82948; 93005; 96372; 99283; J1885

== ENCOUNTER 2018-02-18 14:11 | Emergency (ER) | payer MEDICARE, OTHER ==
[2018-02-18 14:13] VITALS: BMI 26.2
[2018-02-18 14:22] VITALS: TEMP 97
--- NOTE | 2018-02-18 15:28 | ED PDOC ---
Lower Extremity Pain/Injury Time Seen by Provider: 02/18/18 14:42 Chief Complaint (Nursing): Lower Extremity Problem/Injury Chief Complaint (Provider): Radhaibe Attestation: History Per: Patient History/Exam Limitations: no limitations Onset/Duration Of Symptoms: Days Current Symptoms Are (Timing): Still Present Additional Complaint(s): 67 y/o female presents to the ED complaining of bilateral lower extremity pain, onset two years ago. Patient was seen by a baggage checker today and given a prescription for JOHN testing. Patient reports of taking Tramadol with relief. Patient states she was told by her PMD, Dr. Nowak that she had neuropathy. Denies swelling, weakness, numbness and tingling. PMD: Andrae Nowak Past Medical History Reviewed: Historical Data, Nursing Documentation, Vital Signs Vital Signs: Last Vital Signs Temp 97.0 F L 02/18/18 14:19 Pulse 83 02/18/18 14:19 Resp 16 02/18/18 14:19 BP 99/66 L 02/18/18 14:19 Pulse Ox 99 02/18/18 14:19 - Medical History PMH: Anemia, Anxiety, Arthritis, Back Problems, Diabetes, HTN, Hypercholesterolemia, Hyperthyroidism, Hypothyroidism, Rheumatoid Arthritis, Chronic Pain Denies: Chronic Kidney Disease Other PMH: Neuropathy - Surgical History Surgical History: Back Surgery, Hernia Repair - Family History Family History: States: Unknown Family Hx - Home Medications Home Medications: Ambulatory Orders Medication Instructions Recorded Lactulose [Generlac] 10 gm PO DAILY 10/29/17 Empagliflozin [Jardiance] 25 mg PO DAILY 11/04/17 Ergocalciferol (Vitamin D2) 50,000 unit PO MO 11/04/17 [Vitamin D2] Gabapentin [Neurontin] 1,200 mg PO HS 11/04/17 Glimepiride [amaRYL] 4 mg PO BID 11/04/17 Insulin Detemir [Levemir] 22 unit SC BID 11/04/17 Megestrol Acetate [Megace] 30 ml PO BID 11/04/17 Memantine [Namenda] 10 mg PO Q12 11/04/17 Metformin HCl [Metformin HCl ER] 1,000 mg PO BID 11/04/17 Pantoprazole Sodium [Protonix] 40 mg PO DAILY 11/04/17 Rosuvastatin Calcium [Crestor] 10 mg PO HS 11/04/17 Venlafaxine HCl [Venlafaxine HCl 75 mg PO DAILY 11/04/17 ER] Zolpidem [Ambien] 10 mg PO HS PRN 11/04/17 rOPINIRole [Requip] 1 mg PO HS 11/04/17 traMADol/Acetaminophen [Ultracet 1 tab PO Q6 PRN 11/04/17 37.5/325 mg] Gabapentin [Neurontin] 600 mg PO TID #90 tab 11/10/17 Oxycodone HCl [Oxycontin] 10 mg PO Q8 #90 tab.er.12h 11/10/17 oxyCODONE [oxyCODONE Immediate 10 mg PO Q6H PRN #120 tab 11/10/17 Release Tab] Famotidine [Pepcid] 20 mg PO DAILY PRN #6 tab 02/10/18 Ibuprofen [Motrin] 600 mg PO TID 7 Days tab 02/10/18 - Allergies Allergies/Adverse Reactions: Allergies Allergy/AdvReac Type Severity Reaction Status Date / Time No Known Allergies Allergy Verified 02/10/18 07:47 Review of Systems ROS Statement: Except As Marked, All Systems Reviewed And Found Negative Musculoskeletal: Positive for: Leg Pain (bilateral ) Physical Exam - Reviewed Nursing Documentation Reviewed: Yes Vital Signs Reviewed: Yes - Physical Exam Appears: Positive for: Non-toxic, No Acute Distress Head Exam: Positive for: ATRAUMATIC, NORMOCEPHALIC Skin: Positive for: Normal Color, Warm, Dry Eye Exam: Positive for: EOMI, Normal appearance, PERRL Neck: Positive for: Normal, Painless ROM, Supple Cardiovascular/Chest: Positive for: Regular Rate, Rhythm. Negative for: Murmur Respiratory: Positive for: Normal Breath Sounds. Negative for: Respiratory Distress Gastrointestinal/Abdominal: Positive for: Normal Exam, Soft. Negative for: Tenderness Back: Positive for: Normal Inspection. Negative for: L CVA Tenderness, R CVA Tenderness, Vertebral Tenderness Extremity: Positive for: Normal ROM. Negative for: Pedal Edema, Deformity Neurologic/Psych: Positive for: Alert, Oriented. Negative for: Motor/Sensory Deficits - ECG O2 Sat by Pulse Oximetry: 99 (RA) Pulse Ox Interpretation: Normal Medical Decision Making Medical Decision Making: Time: 1453 Impression: Chronic Bilateral Leg Pain Plan: -- Ankle/Branchial Indice US -- Duplex Lower Extremity Vein Bilat US Accession No. : [id number] Patient Name / ID : OMAR FENG / [id number] Exam Date : 02/18/2018 16:00:52 ( Approved ) Study Comment : Sex / Age : F / 67Y Creator : Vladimir Pineda MD Dictator : Hand Bindery Assembly Worker : Trauma Therapist : Vladimir Pineda MD Approver2 : Report Date : 02/18/2018 18:13:35 My Comment : Date of service: 02/18/2018 PROCEDURE: Bilateral lower extremity venous duplex Doppler. HISTORY: BLE pain COMPARISON: None available. TECHNIQUE: Bilateral common femoral, superficial femoral, popliteal and posterior tibial veins were evaluated. Flow was assessed with color Doppler, compressibility, assessment of phasic flow and augmentation response. FINDINGS: COMMON FEMORAL VEIN: Right CFV: Unremarkable. Left CFV: Unremarkable. SUPERFICIAL FEMORAL VEIN: Right SFV: Unremarkable. Left SFV: Unremarkable. POPLITEAL VEIN: Right Popliteal: Unremarkable. Left Popliteal: Unremarkable. POSTERIOR TIBIAL VEIN: Right PTV: Unremarkable. Left PTV: Unremarkable. OTHER FINDINGS: None. IMPRESSION: No evidence of deep venous thrombosis. Time: 1832 -- Spoke to podiatry resident. Patient sent for extremity ultrasound to rule out DVT. JOHN to be performed as an outpatient. ___ Scribe Attestation: Documented by Cristy Glez acting as a scribe for Dr. Jduy Bach MD. Provider Scribe Attestation: All medical record entries made by the Scribe were at my direction and personally dictated by me. I have reviewed the chart and agree that the record accurately reflects my personal performance of the history, physical exam, medical decision making, and the department course for this patient. I have also personally directed, reviewed, and agree with the discharge instructions and disposition. Disposition - Clinical Impression Clinical Impression: Chronic pain of lower extremity, bilateral - Disposition Referrals: Jonathan Fried MD [Staff Provider] - Andrae Nowak MD [Primary Care Provider] - Disposition: Routine/Home Disposition Time: 19:00 Condition: STABLE Instructions: Chronic Pain Forms: [facility] (Frisian) Print Language: AMHARIC
--- NOTE | 2018-02-18 18:15 | US ---
Date of service: 02/18/2018 PROCEDURE: Bilateral lower extremity venous duplex Doppler. HISTORY: BLE pain COMPARISON: None available. TECHNIQUE: Bilateral common femoral, superficial femoral, popliteal and posterior tibial veins were evaluated. Flow was assessed with color Doppler, compressibility, assessment of phasic flow and augmentation response. FINDINGS: COMMON FEMORAL VEIN: Right CFV: Unremarkable. Left CFV: Unremarkable. SUPERFICIAL FEMORAL VEIN: Right SFV: Unremarkable. Left SFV: Unremarkable. POPLITEAL VEIN: Right Popliteal: Unremarkable. Left Popliteal: Unremarkable. POSTERIOR TIBIAL VEIN: Right PTV: Unremarkable. Left PTV: Unremarkable. OTHER FINDINGS: None. IMPRESSION: No evidence of deep venous thrombosis.
[2018-02-18 19:01] VITALS: BP 129/72; PULSE 74; RESP 15
[2018-02-18 21:31] VITALS: O2SAT 99
== END 2018-02-18 19:01 | disposition home or self-care (01) ==
LOC: H.ER 14:11
DX: M79.605 Pain in left leg (principal); M79.604 Pain in right leg; G89.29 Other chronic pain; I10 Essential (primary) hypertension

== ENCOUNTER 2018-03-04 13:15 | Observation (INO) | payer MEDICARE, OTHER ==
[2018-03-04 13:15] VITALS: BMI 26.2
--- NOTE | 2018-03-04 13:36 | ED PDOC ---
HPI: Back Time Seen by Provider: 03/04/18 13:32 Chief Complaint (Nursing): Back Pain History Per: Other Onset/Duration Of Symptoms: Persistent Current Symptoms Are (Timing): Still Present Additional Complaint(s): Referred by PMD for persistent chronic back pain. No weakness or parsthesias Past Medical History Vital Signs: Last Vital Signs Temp 97.8 F 03/04/18 13:26 Pulse 83 03/04/18 13:26 Resp 18 03/04/18 13:26 BP 138/72 03/04/18 13:26 Pulse Ox 95 03/04/18 13:26 - Medical History PMH: Anemia, Anxiety, Arthritis, Back Problems, Diabetes, HTN, Hypercholesterolemia, Hyperthyroidism, Hypothyroidism, Rheumatoid Arthritis, Chronic Pain Denies: Chronic Kidney Disease - Surgical History Surgical History: Back Surgery, Hernia Repair - Family History Family History: States: Unknown Family Hx - Home Medications Home Medications: Ambulatory Orders Medication Instructions Recorded Lactulose [Generlac] 10 gm PO DAILY 10/29/17 Empagliflozin [Jardiance] 25 mg PO DAILY 11/04/17 Ergocalciferol (Vitamin D2) 50,000 unit PO MO 11/04/17 [Vitamin D2] Gabapentin [Neurontin] 1,200 mg PO HS 11/04/17 Glimepiride [amaRYL] 4 mg PO BID 11/04/17 Insulin Detemir [Levemir] 22 unit SC BID 11/04/17 Megestrol Acetate [Megace] 30 ml PO BID 11/04/17 Memantine [Namenda] 10 mg PO Q12 11/04/17 Metformin HCl [Metformin HCl ER] 1,000 mg PO BID 11/04/17 Pantoprazole Sodium [Protonix] 40 mg PO DAILY 11/04/17 Rosuvastatin Calcium [Crestor] 10 mg PO HS 11/04/17 Venlafaxine HCl [Venlafaxine HCl 75 mg PO DAILY 11/04/17 ER] Zolpidem [Ambien] 10 mg PO HS PRN 11/04/17 rOPINIRole [Requip] 1 mg PO HS 11/04/17 traMADol/Acetaminophen [Ultracet 1 tab PO Q6 PRN 11/04/17 37.5/325 mg] Gabapentin [Neurontin] 600 mg PO TID #90 tab 11/10/17 Oxycodone HCl [Oxycontin] 10 mg PO Q8 #90 tab.er.12h 11/10/17 oxyCODONE [oxyCODONE Immediate 10 mg PO Q6H PRN #120 tab 11/10/17 Release Tab] Famotidine [Pepcid] 20 mg PO DAILY PRN #6 tab 02/10/18 Ibuprofen [Motrin] 600 mg PO TID 7 Days tab 02/10/18 - Allergies Allergies/Adverse Reactions: Allergies Allergy/AdvReac Type Severity Reaction Status Date / Time No Known Allergies Allergy Verified 03/04/18 13:26 Review of Systems Musculoskeletal: Positive for: Back Pain Neurological: Negative for: Weakness, Numbness Physical Exam - Physical Exam Appears: Positive for: Non-toxic, No Acute Distress Skin: Positive for: Normal Color, Warm, DRY Back: Positive for: Normal Inspection, Vertebral Tenderness Neurologic/Psych: Positive for: Alert, Oriented. Negative for: Motor/Sensory Deficits - ECG O2 Sat by Pulse Oximetry: 95 Disposition - Clinical Impression Clinical Impression: Low back pain - Patient ED Disposition Is Patient to be Admitted: Yes - Disposition Disposition Time: 13:36 Condition: FAIR - Pt Status Changed To: Hospital Disposition Of: Observation - POA Present On Arrival: None
[2018-03-04] MEDS ORDERED: Iohexol 300 10 ML ONE (13:52)
[2018-03-04] MEDS ORDERED: Bupivacaine HCl 0.25% PF (30 ml) Inj ONE (13:52)
[2018-03-04] MEDS ORDERED: MethylPREDNISolone Depo 40 mg/ml Inj ONE (13:52)
[2018-03-04] MEDS ORDERED: Sodium Chloride 0.9% 500 ML IV ONE (14:30)
[2018-03-04] MEDS ORDERED: Midazolam 2 MG/2 ML VIAL ONE (14:30)
[2018-03-04] MEDS ORDERED: Lidocaine 1% MPF (30 ml) Inj INJ ONE (14:40)
[2018-03-04] MEDS ORDERED: Lactated Ringer's 1,000 ML IV SCH (15:00)
[2018-03-04] MEDS ORDERED: HYDROmorphone 1 mg/ml ISec ONE (15:12)
[2018-03-04 15:20] VITALS: RESP 20
[2018-03-04 15:42] VITALS: O2SAT 98
[2018-03-04 15:58] VITALS: BP 131/74; PULSE 84; TEMP 98
--- NOTE | 2018-03-05 01:26 | OP ---
Copied To: Hailey Ramirez MD Attending MD: Hailey Ramirez MD PROCEDURE DATE: 03/04/2018 PREOPERATIVE DIAGNOSIS: Failed back syndrome. POSTOPERATIVE DIAGNOSIS: Failed back syndrome. PROCEDURE: Right L4-L5, L5-S1 transforaminal epidural steroid injection. ANESTHESIOLOGIST: Dr. Meza. SURGEON: Hailey Ramirez MD TYPE OF ANESTHESIA: Monitored anesthesia care. COMPLICATIONS: None. SPECIMEN: None. DESCRIPTION OF PROCEDURE: As follows: After we had discussion of the procedure with the patient including its risks, benefits, alternatives, outcome data, and possibility of no effect or increased pain, the patient consented to the procedure. She denied any recent infection, bleeding tendencies, or being on anticoagulants. Decision was then made to proceed to the OR. The patient was placed on the fluoroscopy table in a prone position with two pillows underneath her abdomen. The back was prepped and draped in her usual sterile fashion, and a sterile technique was adhered to during the entire procedure. The L4 and L5 vertebral levels were first identified in the anterior and posterior view. The patient is status post L4-L5 fusion. Care was taken to avoid, however, doing the needle placement. The fluoroscopy was turned towards the right, approximately 20 degrees to maximize the visualization of the right L4 and L5 pedicles. The skin overlying the 6 o'clock position of both pedicles was then infiltrated with 1% lidocaine using a 25-gauge needle. Subsequently, a 22-gauge 3.5-inch spinal needle was then incrementally advanced under fluoroscopic guidance until the tip of needle walk into the intervertebral foramen. The needle was advanced until it is situated below pedicles. There was slight resistance at these two locations. However, contrast was injected to show appropriate nerve root spread. There was some epidural spread, however, it was then free flowing. This is due to the patient's previous history of surgeries and scar tissue formation. After appropriate placement of both needles, approximately 3 mL of 0.25% Marcaine and Depo-Medrol mixture was injected. The needle was then removed, and the patient's back was cleaned and dry bandages were applied. The patient was then transferred to the recovery area in good condition without any signs of VARNISH FINISHER toxicity or any neurological deficit. She will be following in our office in approximately 2 to 4 weeks. Hailey Ramirez MD [facility] # [id number]
--- NOTE | 2018-03-05 19:04 | RAD ---
Date of service: 03/04/2018 PROCEDURE: Intraoperative fluoroscopy HISTORY: PAIN MANAGEMENT COMPARISON: Not avail TECHNIQUE: Intraoperative fluoroscopy was provided for an interventional pain management procedure. Total time of fluoroscopy was 28.4 seconds. Cumulative dose was 18.0 mGy. FINDINGS: A single fluoroscopic spot film is submitted. IMPRESSION: Fluoroscopy provided
== END 2018-03-04 16:30 | disposition home or self-care (01) ==
LOC: H.ER 13:15 → H.ERHOLD 13:33
PROVIDERS: ADMIT Anesthesiology; ATTEND Anesthesiology
DX: M54.5 Low back pain (principal); F41.9 Anxiety disorder, unspecified; M19.90 Unspecified osteoarthritis, unspecified site; E11.9 Type 2 diabetes mellitus without complications; I10 Essential (primary) hypertension; E78.00 Pure hypercholesterolemia, unspecified; M06.9 Rheumatoid arthritis, unspecified; E03.9 Hypothyroidism, unspecified
CPT/HCPCS: 62323; 82948; 99283; G0378; J1030; J1170; J2250; J2405; J3010; J7030; Q9967

== ENCOUNTER 2018-03-26 07:03 | Emergency (ER) | payer MEDICARE, OTHER ==
[2018-03-26 07:04] VITALS: BMI 26.2
[2018-03-26 07:09] VITALS: RESP 18
--- NOTE | 2018-03-26 08:40 | ED PDOC ---
HPI: Back Time Seen by Provider: 03/26/18 07:13 Chief Complaint (Nursing): Back Pain Chief Complaint (Provider): Back Pain History Per: Patient History/Exam Limitations: no limitations Onset/Duration Of Symptoms: Days (x 2-3 ) Current Symptoms Are (Timing): Still Present Quality Of Discomfort: "Pain" Previous Symptoms: Back Pain Additional Complaint(s): 67 year old female with a history of dementia, back pain and diabetes presents to the Ed with right lower back pain radiating down her right left for the last 2-3 days. Pain is consistent with prior history of back pain and "disc problems ". Patient had a lumbar laminectomy with fusion by Dr. Montes in October of this year. She sees Dr. Ramirez for pain management. Denies incontinence, weakness and numbness. PMD: Dr. Nowak Past Medical History Reviewed: Historical Data, Nursing Documentation, Vital Signs Vital Signs: Last Vital Signs Temp 97.8 F 03/26/18 07:08 Pulse 83 03/26/18 07:08 Resp 18 03/26/18 07:08 BP 128/77 03/26/18 07:08 Pulse Ox 98 03/26/18 07:08 - Medical History PMH: Anemia, Anxiety, Arthritis, Back Problems, Dementia, Depression, Diabetes, Gastritis, HTN, Hypercholesterolemia, Hyperthyroidism, Hypothyroidism, Rheumatoid Arthritis, Chronic Pain Denies: Chronic Kidney Disease - Surgical History Surgical History: Back Surgery, Hernia Repair - Family History Family History: States: Unknown Family Hx - Home Medications Home Medications: Ambulatory Orders Medication Instructions Recorded Lactulose [Generlac] 10 gm PO DAILY 10/29/17 Empagliflozin [Jardiance] 25 mg PO DAILY 11/04/17 Ergocalciferol (Vitamin D2) 50,000 unit PO MO 11/04/17 [Vitamin D2] Insulin Detemir [Levemir] 18 unit SC BID 11/04/17 Megestrol Acetate [Megace] 200 mg PO BID 11/04/17 Memantine [Namenda] 10 mg PO Q12 11/04/17 Metformin HCl [Metformin HCl ER] 1,000 mg PO BID 11/04/17 Pantoprazole Sodium [Protonix] 40 mg PO DAILY 11/04/17 Rosuvastatin Calcium [Crestor] 20 mg PO HS 11/04/17 rOPINIRole [Requip] 0.5 mg PO HS 11/04/17 traMADol/Acetaminophen [Ultracet 1 tab PO DAILY 11/04/17 37.5/325 mg] Diclofenac Sodium [Voltaren] 1 applic TP QID 03/04/18 Gabapentin [Neurontin] 600 mg PO DAILY 03/04/18 Egynm-9-Itno Ethyl Esters 1 GM 1 gm PO BID 03/04/18 [Lovaza] PARoxetine [Paxil] 10 mg PO DAILY 03/04/18 - Allergies Allergies/Adverse Reactions: Allergies Allergy/AdvReac Type Severity Reaction Status Date / Time No Known Allergies Allergy Verified 03/04/18 13:26 Review of Systems ROS Statement: Except As Marked, All Systems Reviewed And Found Negative Musculoskeletal: Positive for: Back Pain (right lower ), Leg Pain (pain from back radiates down right leg) Physical Exam - Reviewed Nursing Documentation Reviewed: Yes Vital Signs Reviewed: Yes - Physical Exam Appears: Positive for: Non-toxic, No Acute Distress Head Exam: Positive for: ATRAUMATIC, NORMAL INSPECTION, NORMOCEPHALIC Skin: Positive for: Normal Color, Warm, Dry Eye Exam: Positive for: EOMI, Normal appearance, PERRL Neck: Positive for: Normal, Painless ROM, Supple Cardiovascular/Chest: Positive for: Regular Rate, Rhythm. Negative for: Tachycardia Respiratory: Positive for: Normal Breath Sounds. Negative for: Respiratory Distress Gastrointestinal/Abdominal: Positive for: Normal Exam, Soft. Negative for: Tenderness Back: Positive for: Other (midline surgical incision healed; right lumbar hypertenacity and tendereness into the buttock sciatic region) Extremity: Positive for: Normal ROM (Full ROM of lower extremities with full strength intact). Negative for: Deformity Neurologic/Psych: Positive for: Alert, Oriented (x 3). Negative for: Motor/ Sensory Deficits - ECG O2 Sat by Pulse Oximetry: 98 (RA) Pulse Ox Interpretation: Normal Medical Decision Making Medical Decision Makin:07 Plan: --Flexeril 10 mg PO --Toradol 15 mg IV --Toradol 15 m IV --Tylenol 650 mg PO patient improved on re-eval approx 90min into ED stay. Ambulating. Discussed with Dr. Montes- no surgical intervention suggested for her at this time. Discussed with Dr. Ramirez, who recommends pain control in ED and for patient to see him in clinic tomorrow for possible spinal stimuation. ~ Scribe Attestation: Documented by Nicci Boyce, acting as a scribe for Adi Trinidad III, DO Provider Scribe Attestation: All medical record entries made by the Scribe were at my direction and personally dictated by me. I have reviewed the chart and agree that the record accurately reflects my personal performance of the history, physical exam, medical decision making, and the department course for this patient. I have also personally directed, reviewed, and agree with the discharge instructions and disposition. Disposition - Clinical Impression Clinical Impression: Acute exacerbation of chronic low back pain - Patient ED Disposition Is Patient to be Admitted: No Counseled Patient/Family Regarding: Studies Performed, Diagnosis, Need For Followup - Disposition Referrals: Hailey Ramirez MD [Staff Provider] - Disposition: Routine/Home Disposition Time: 10:15 Condition: STABLE Additional Instructions: See Dr Ramirez tomorrow at 1pm in pain medicine clinic. Return to ER for any worse or new symptoms. JUNG NELSON, thank you for letting us take care of you today. Your provider was Adi Trinidad III, DO and you were treated for BACK PAIN. The emergency medical care you received today was directed at your acute symptoms. If you were prescribed any medication, please fill it and take as directed. It may take several days for your symptoms to resolve. Return to the Emergency Department if your symptoms worsen, do not improve, or if you have any other problems. Please contact your doctor or call one of the physicians/clinics you have been referred to that are listed on the Patient Visit Information form that is included in your discharge packet. Bring any paperwork you were given at discharge with you along with any medications you are taking to your follow up visit. Our treatment cannot replace ongoing medical care by a primary care provider outside of the emergency department. Thank you for allowing the [facility] team to be part of your care today. If you had an X-Ray or CT scan: A Radiologist will review the ED reading if any change in treatment is needed we will contact you. If you had a blood, urine, or wound culture: It will take several days for the results, if any change in treatment is needed we will contact you. If you had an STI test: It will take 48 hours for the results. Please call after 1 week if you have not heard back. Instructions: Low Back Pain in Adults Forms: [employer] (Chinese)
[2018-03-26 10:31] VITALS: BP 135/75; PULSE 80; TEMP 98.2
[2018-03-26 17:10] VITALS: O2SAT 98
== END 2018-03-26 10:30 | disposition home or self-care (01) ==
LOC: H.ER 07:03
DX: M54.5 Low back pain (principal)
CPT/HCPCS: 96374; 99284; J1885

== ENCOUNTER 2018-03-29 03:42 | Observation (INO) | payer MEDICARE, OTHER ==
[2018-03-29 03:42] VITALS: BMI 26.2
[2018-03-29] MEDS ORDERED: Morphine 4 MG/ML VIAL ONE (04:52)
[2018-03-29 05:21] LABS: BASO # 0.1 K/uL (0.0-0.2); EOS # 0.2 K/uL (0.0-0.7); EOS % 2.3 % (0.0-4.0); MEAN CELL VOLUME 83.1 fl (81.0-99.0); MEAN CORPUSCULAR HGB CONC 31.4 g/dL (33.0-37.0); MEAN PLATELET VOLUME 8.5 fl (7.2-11.7); MONO # 0.8 K/uL (0.0-0.8); MONO % 7.7 % (0.0-10.0); NEUT # 7.8 K/uL (1.8-7.0); RBC 3.83 Mil/uL (3.80-5.20); RED CELL DISTRIBUTION WIDTH 18.4 % (11.5-14.5); WHITE BLOOD COUNT 10.9 K/uL (4.8-10.8)
[2018-03-29 05:27] LABS: INR 0.9; PROTHROMBIN TIME 10.2 Seconds (9.8-13.1)
[2018-03-29 05:30] LABS: PARTIAL THROMBOPLASTIN TIME 27.6 Seconds (25.6-37.1)
[2018-03-29 05:36] LABS: BLOOD UREA NITROGEN 17 mg/dl (7-17); CALCIUM 9.5 mg/dL (8.4-10.2); GFR NON-AFRICAN AMERICAN > 60
--- NOTE | 2018-03-29 06:28 | ED PDOC ---
HPI: Back Time Seen by Provider: 03/29/18 04:22 Chief Complaint (Nursing): Back Pain History Per: Patient History/Exam Limitations: no limitations Onset/Duration Of Symptoms: Days Current Symptoms Are (Timing): Still Present Quality Of Discomfort: Aching Additional Complaint(s): Hx of DM, HTN, HLD, Chronic back pain presenting with back pain on R lower back radiating down R leg. States she has tried gabapentin, Tylenol-3, ibuprofen without any relief of symptoms. States she cannot perform her activities of daily life becuase of the pain. Denies loss of sensation/motor function, denies problems with bowels or bladder. Past Medical History Reviewed: Historical Data, Nursing Documentation Vital Signs: Last Vital Signs Temp 98.1 F 03/29/18 03:52 Pulse 83 03/29/18 03:52 Resp 18 03/29/18 03:52 BP 140/84 03/29/18 03:52 Pulse Ox 98 03/29/18 03:52 - Medical History PMH: Anemia, Anxiety, Arthritis, Back Problems, Dementia, Depression, Diabetes, Gastritis, HTN, Hypercholesterolemia, Hyperthyroidism, Hypothyroidism, Rheumatoid Arthritis, Chronic Pain Denies: Chronic Kidney Disease - Surgical History Surgical History: Back Surgery, Hernia Repair - Family History Family History: States: Unknown Family Hx - Home Medications Home Medications: Ambulatory Orders Medication Instructions Recorded Lactulose [Generlac] 10 gm PO DAILY 10/29/17 Empagliflozin [Jardiance] 25 mg PO DAILY 11/04/17 Ergocalciferol (Vitamin D2) 50,000 unit PO MO 11/04/17 [Vitamin D2] Insulin Detemir [Levemir] 18 unit SC BID 11/04/17 Megestrol Acetate [Megace] 200 mg PO BID 11/04/17 Memantine [Namenda] 10 mg PO Q12 11/04/17 Metformin HCl [Metformin HCl ER] 1,000 mg PO BID 11/04/17 Pantoprazole Sodium [Protonix] 40 mg PO DAILY 11/04/17 Rosuvastatin Calcium [Crestor] 20 mg PO HS 11/04/17 rOPINIRole [Requip] 0.5 mg PO HS 11/04/17 traMADol/Acetaminophen [Ultracet 1 tab PO DAILY 11/04/17 37.5/325 mg] Diclofenac Sodium [Voltaren] 1 applic TP QID 03/04/18 Gabapentin [Neurontin] 600 mg PO DAILY 03/04/18 Sgyat-4-Adlg Ethyl Esters 1 GM 1 gm PO BID 03/04/18 [Lovaza] PARoxetine [Paxil] 10 mg PO DAILY 03/04/18 - Allergies Allergies/Adverse Reactions: Allergies Allergy/AdvReac Type Severity Reaction Status Date / Time No Known Allergies Allergy Verified 03/04/18 13:26 Review of Systems ROS Statement: Except As Marked, All Systems Reviewed And Found Negative Musculoskeletal: Positive for: Back Pain Physical Exam - Reviewed Nursing Documentation Reviewed: Yes Vital Signs Reviewed: Yes - Physical Exam Appears: Positive for: Well, Non-toxic, Uncomfortable Head Exam: Positive for: ATRAUMATIC, NORMAL INSPECTION, NORMOCEPHALIC Skin: Positive for: Normal Color, Warm, DRY Eye Exam: Positive for: EOMI, Normal appearance, PERRL ENT: Positive for: Normal ENT Inspection Neck: Positive for: Normal, Painless ROM Cardiovascular/Chest: Positive for: Regular Rate, Rhythm Respiratory: Positive for: CNT, Normal Breath Sounds Gastrointestinal/Abdominal: Positive for: Normal Exam, Soft Back: Positive for: Vertebral Tenderness (TTP of R lower vertebral and paravertebral musculature ), Muscle Spasm Extremity: Positive for: Normal ROM. Negative for: Pedal Edema, Deformity Neurologic/Psych: Positive for: Alert, carpet binder II-XII, Oriented. Negative for: Motor/Sensory Deficits - Laboratory Results Result Diagrams: 03/29/18 05:11 03/29/18 05:11 - ECG O2 Sat by Pulse Oximetry: 98 Pulse Ox Interpretation: Normal Medical Decision Making Medical Decision Making: Patient with HTN, HLD, DM, chronic back pain presenting with acute on chronic back pain --Patient uncomfortable appearing, stable vitals --Case discussed with DR. Nowak who agrees to admit patient for further workup and pain control Disposition - Clinical Impression Clinical Impression: Low back pain - Patient ED Disposition Is Patient to be Admitted: Yes - Disposition Disposition Time: 06:00 Condition: FAIR
--- NOTE | 2018-03-29 08:20 | RAD ---
Date of service: 03/29/2018 PROCEDURE: Radiographs of the pelvis. HISTORY: R thigh/pelvis pain COMPARISON: None. FINDINGS: BONES: Pelvic Bones: Intact no fracture lytic process. Hips: Degenerative changes of both hip joint regions without fracture. No femoral head flattening to suggest AVN. JOINTS: Sacroiliac Joints: Unremarkable. Pubic Symphysis: Unremarkable. OTHER FINDINGS: There is evidence of prior lower lumbar spine fusion surgery. IMPRESSION: No appreciable fracture.
--- NOTE | 2018-03-29 08:26 | RAD ---
Date of service: 03/29/2018 PROCEDURE: Radiographs of the Lumbar Spine. HISTORY: back pain COMPARISON: 06/26/2015 x-ray, CT scan 10/10/2017 FINDINGS: BONES: Five views of the lumbar spine were performed including oblique views. Since the prior CT scan the patient has undergone lower lumbar spine laminectomy and fusion surgery. Visualized pedicle screws appear grossly intact and normal anatomic position. There appears to be decreased anterior listhesis of L4 over L5 from the prior x-ray exam. No acute compression fracture or new area of malalignment is seen. Degenerative changes are seen in the facet joint regions bilaterally. No new scoliosis is seen. Visualized sacroiliac joints are not widened. Lower thoracic spine is within normal limits. Moderate residual fecal material seen throughout the bowel. DISC SPACES: See above OTHER FINDINGS: None. IMPRESSION: Status post lower lumbar spine fusion surgery at L4-5. Mild interval reduction of previously seen anterior listhesis at L4-5. No new malalignment seen. No new compression fracture.
[2018-03-29 08:27] LABS: SQUAMOUS EPITHIAL 4 /hpf (0-5); URINE BACTERIA OCC (<OCC); URINE BILIRUBIN NEGATIVE (NEGATIVE); URINE BLOOD NEGATIVE (NEGATIVE); URINE CLARITY SLIGHTY-CLOUDY (Clear); URINE COLOR STRAW (YELLOW); URINE GLUCOSE (UA) >=500 mg/dL (Normal); URINE LEUKOCYTE ESTERASE SMALL Leu/uL (Negative); URINE PROTEIN NEGATIVE (NEGATIVE); URINE UROBILINOGEN 0.2-1.0 mg/dL (0.2-1.0)
[2018-03-29] MEDS ORDERED: DICLOFENAC SODIUM TP SCH (13:00)
--- NOTE | 2018-03-29 15:57 | CP.PCM.HP ---
History of Present Illness - History of Present Illness History of Present Illness: CC: Acute back pain. 67 y/o F, with multiple PMH: R/A, Lumbar disk herniation with Radiculopathy S/P Lumbar Laminectomy, DM 2, Diabetic Neuropathy, Hypercholesterolemia, Anxiety. Pt was brought to [facility] in AM today, via EMS, c/o of increased R low back pain on DOA, pain described as sharp, aching, severe intensity 10:10, radiated to R leg, associated to Hx of lumbar disk herniations. Pt using Tylenol, Ibuprofen, Ultracet with no relief. Worsening symptoms: Irritability, sleepless. Aggravated factor: ADL's, movements. Pt denied: fever, chills, fall, n/v/d, abdominal pain, urinary symptoms, CP, palpitations, SOB, cough, sick contact, recent travel out of [place]. Lumbar Spine X-Ray: S/P lower lumbar spine fusion surgery at L 4-5, mild interval reduction of previous seen anterior listhesis at L4-5. Present on Admission - Present on Admission Any Indicators Present on Admission: No Review of Systems - Constitutional Constitutional: As Per HPI - EENT Eyes: Requires Corrective Lenses Ears: Other (negative) Nose/Mouth/Throat: Other (negative) - Cardiovascular Cardiovascular: Other (negative) - Respiratory Respiratory: Other (negative) - Gastrointestinal Gastrointestinal: Other (negative) - Genitourinary Genitourinary: Other (negative) - Musculoskeletal Musculoskeletal: Arthralgias, Back Pain, Radiating Pain into Limb - Integumentary Integumentary: Other (negative) - Neurological Neurological: Other (negative) - Psychiatric Psychiatric: Anxiety, Depression - Endocrine Endocrine: Other (negative) - Hematologic/Lymphatic Hematologic: Other (negative) Past Patient History - Past Medical History & Family History Past Medical History?: Yes Pertinent Family History: Unknown - Past Social History Smoking Status: Never Smoked Alcohol: None Drugs: Denies Home Situation {Lives}: With Family - CARDIAC Hx Cardiac Disorders: Yes Hx Hypercholesterolemia: Yes Hx Hypertension: Yes - PULMONARY Hx Respiratory Disorders: Yes - NEUROLOGICAL Hx Neurological Disorder: Yes Hx Dementia: Yes - HEENT Hx HEENT Problems: Yes Other/Comment: Excision of cyst R eye - RENAL Hx Chronic Kidney Disease: No - ENDOCRINE/METABOLIC Hx Endocrine Disorders: Yes (DM retinopathy/Neuropathy) Hx Diabetes Mellitus Type 2: Yes Hx Hypothyroidism: Yes - HEMATOLOGICAL/ONCOLOGICAL Hx Blood Disorders: Yes Hx Anemia: Yes - INTEGUMENTARY Hx Dermatological Problems: Yes Other/Comment: Excision of neuroma david feet, Excision of sebaceous L shoulder - MUSCULOSKELETAL/RHEUMATOLOGICAL Hx Musculoskeletal Disorders: Yes Hx Back Pain: Yes Hx Herniated Disk: Yes Hx Rheumatoid Arthritis: Yes - GASTROINTESTINAL Hx Gastrointestinal Disorders: Yes Hx Gastritis: Yes - GENITOURINARY/GYNECOLOGICAL Hx Genitourinary Disorders: No - PSYCHIATRIC Hx Psychophysiologic Disorder: Yes Hx Anxiety: Yes Hx Depression: Yes - SURGICAL HISTORY Hx Surgeries: Yes Hx Eye Surgery: Yes (LASIK SX RT EYE 3 WEEKS AGO) Hx Musculoskeletal Surgery: Yes (BACK SURGERY) Hx Orthopedic Surgery: Yes (R shoulder sx) Other/Comment: MULTIPLE EPIDURALS/DAVID FOOT SURGERYX5/RIGHT SHOULDER SURGERY - ANESTHESIA Hx Anesthesia: Yes Hx Anesthesia Reactions: No Hx Malignant Hyperthermia: No Meds Allergies/Adverse Reactions: Allergies Allergy/AdvReac Type Severity Reaction Status Date / Time No Known Allergies Allergy Verified 03/04/18 13:26 Physical Exam - Constitutional Appears: No Acute Distress - Head Exam Head Exam: NORMAL INSPECTION - Eye Exam Eye Exam: PERRL - ENT Exam ENT Exam: Normal Exam - Neck Exam Neck exam: Positive for: Normal Inspection - Respiratory Exam Respiratory Exam: Clear to Auscultation Bilateral - Cardiovascular Exam Cardiovascular Exam: REGULAR RHYTHM - GI/Abdominal Exam GI & Abdominal Exam: Normal Bowel Sounds, Soft - Extremities Exam Extremities exam: Positive for: normal inspection - Back Exam Back exam: vertebral tenderness - Neurological Exam Neurological exam: Alert, CN II-XII Intact, Oriented x3 Additional comments: Mild decreased sensation distal legs/feet - Psychiatric Exam Psychiatric exam: Anxious - Skin Skin Exam: Warm Results - Vital Signs Recent Vital Signs: Last Vital Signs Temp 98.8 F 03/29/18 08:19 Pulse 90 03/29/18 08:19 Resp 16 03/29/18 08:19 BP 122/73 03/29/18 08:19 Pulse Ox 100 03/29/18 07:45 reviewed Tiara - Labs Result Diagrams: 03/29/18 05:11 03/29/18 05:11 Labs: Laboratory Results - last 24 hr 03/29/18 03/29/18 03/29/18 05:11 05:11 05:11 WBC 10.9 H RBC 3.83 Hgb 10.0 L Hct 31.8 L MCV 83.1 MCH 26.0 L MCHC 31.4 L RDW 18.4 H Plt Count 297 MPV 8.5 Neut % (Auto) 71.0 Lymph % (Auto) 18.0 L [place] % (Auto) 7.7 Eos % (Auto) 2.3 Baso % (Auto) 1.0 Neut # (Auto) 7.8 H Lymph # (Auto) 2.0 [place] # (Auto) 0.8 Eos # (Auto) 0.2 Baso # (Auto) 0.1 PT 10.2 INR 0.9 APTT 27.6 Sodium 138 Potassium 4.7 Chloride 105 Carbon Dioxide 22 Anion Gap 16 BUN 17 Creatinine 0.7 Est GFR ( Amer) > 60 Est GFR (Non-Af Amer) > 60 POC Glucose (mg/dL) Random Glucose 223 H Calcium 9.5 Urine Color Urine Clarity Urine pH Ur Specific [place] Urine Protein Urine Glucose (UA) Urine Ketones Urine Blood Urine Nitrate Urine Bilirubin Urine Urobilinogen Ur Leukocyte Esterase Urine RBC (Auto) Urine Microscopic WBC Ur Squamous Epith Cells Urine Bacteria Urine Yeast (Budding) Blood Type Antibody Screen BBK History Checked 03/29/18 03/29/18 03/29/18 05:11 07:45 11:58 WBC RBC Hgb Hct MCV MCH MCHC RDW Plt Count MPV Neut % (Auto) Lymph % (Auto) [place] % (Auto) Eos % (Auto) Baso % (Auto) Neut # (Auto) Lymph # (Auto) [place] # (Auto) Eos # (Auto) Baso # (Auto) PT INR APTT Sodium Potassium Chloride Carbon Dioxide Anion Gap BUN Creatinine Est GFR ( Amer) Est GFR (Non-Af Amer) POC Glucose (mg/dL) 233 H Random Glucose Calcium Urine Color Straw Urine Clarity Slighty-cloudy Urine pH 6.0 Ur Specific [place] 1.020 Urine Protein Negative Urine Glucose (UA) >=500 Urine Ketones Negative Urine Blood Negative Urine Nitrate Negative Urine Bilirubin Negative Urine Urobilinogen 0.2-1.0 Ur Leukocyte Esterase Small Urine RBC (Auto) 3 Urine Microscopic WBC 9 H Ur Squamous Epith Cells 4 Urine Bacteria Occ H Urine Yeast (Budding) Blood Type O POSITIVE Antibody Screen Negative BBK History Checked Patient has bt 03/29/18 03/29/18 15:00 15:38 WBC RBC Hgb Hct MCV MCH MCHC RDW Plt Count MPV Neut % (Auto) Lymph % (Auto) [place] % (Auto) Eos % (Auto) Baso % (Auto) Neut # (Auto) Lymph # (Auto) [place] # (Auto) Eos # (Auto) Baso # (Auto) PT INR APTT Sodium Potassium Chloride Carbon Dioxide Anion Gap BUN Creatinine Est GFR ( Amer) Est GFR (Non-Af Amer) POC Glucose (mg/dL) 192 H Random Glucose Calcium Urine Color [place] Urine Clarity Cloudy Urine pH 6.0 Ur Specific [place] 1.010 Urine Protein 30 Urine Glucose (UA) 150 Urine Ketones Negative Urine Blood Negative Urine Nitrate Negative Urine Bilirubin Negative Urine Urobilinogen 0.2-1.0 Ur Leukocyte Esterase Large Urine RBC (Auto) 3 Urine Microscopic WBC 24 H Ur Squamous Epith Cells 5 Urine Bacteria Occ H Urine Yeast (Budding) Occ H Blood Type Antibody Screen BBK History Checked reviewed J.P. - Impressions Impression: Lumbar Spine X-Ray and Pelvis X-Ray all reviewed J.P. Assessment & Plan (1) Acute exacerbation of chronic low back pain Status: Acute Priority: High (2) Lumbar disc herniation with radiculopathy Status: Chronic Priority: High (3) Status post lumbar laminectomy Status: Chronic Priority: High (4) Diabetes mellitus Status: Chronic Priority: High (5) Hyperglycemia due to type 2 diabetes mellitus Status: Acute Priority: High (6) DM neuropathy, type II diabetes mellitus Status: Chronic Priority: Medium (7) Hypercholesterolemia Status: Chronic Priority: Medium - Assessment and Plan (Free Text) Plan: F/u Spinal MRI, continue Morphine, Levemir, glucophage, Lipitor and rest of Tx. Pain Management consult, Neurology consult. - Date & Time Date: 03/29/18 Time: 12:30
[2018-03-29] MEDS ORDERED: TRAMADOL PO SCH (17:00)
[2018-03-29] MEDS ORDERED: ACETAMINOPHEN PO SCH (17:00)
[2018-03-29] MEDS: Megestrol Acetate 40 mg/ml Cup PO SCH (18:43)
[2018-03-29] MEDS: Omega-3-Acid Ethyl Esters 1 GM Cap PO SCH (18:44)
[2018-03-29] MEDS: Insulin Detemir 100 Units/ml Inj SC SCH (18:46)
[2018-03-29 19:55] LABS: SQUAMOUS EPITHIAL < 1 /hpf (0-5); URINE BACTERIA RARE (<OCC); URINE BILIRUBIN NEGATIVE (NEGATIVE); URINE BLOOD NEGATIVE (NEGATIVE); URINE CLARITY CLEAR (Clear); URINE COLOR STRAW (YELLOW); URINE GLUCOSE (UA) >=500 mg/dL (Normal); URINE LEUKOCYTE ESTERASE NEG Leu/uL (Negative); URINE PROTEIN NEGATIVE (NEGATIVE); URINE UROBILINOGEN 0.2-1.0 mg/dL (0.2-1.0)
[2018-03-30 06:24] LABS: HEMOGLOBIN 10.5 g/dL (12.0-16.0); MEAN CELL VOLUME 81.9 fl (81.0-99.0); MEAN CORPUSCULAR HEMOGLOBIN 26.2 pg (27.0-31.0); RBC 4.03 Mil/uL (3.80-5.20); RED CELL DISTRIBUTION WIDTH 18.9 % (11.5-14.5); WHITE BLOOD COUNT 8.5 K/uL (4.8-10.8)
[2018-03-30 06:43] LABS: ALB/GLOB RATIO 1.3 (1.0-2.1); ALT/SGPT 26 U/L (9-52); AST/SGOT 24 U/L (14-36); BLOOD UREA NITROGEN 15 mg/dl (7-17); CALCIUM 9.6 mg/dL (8.4-10.2); GFR NON-AFRICAN AMERICAN > 60; HDL CHOLESTEROL 44 MG/DL (30-70); PARTIAL THROMBOPLASTIN TIME 27.8 Seconds (25.6-37.1)
[2018-03-30 06:52] LABS: LDL CHOLESTEROL 130 mg/dL (0-129)
[2018-03-30] MEDS ORDERED: Enoxaparin 40 mg Syringe SC SCH (09:00)
[2018-03-30] MEDS: Insulin Detemir 100 Units/ml Inj SC SCH ×2 (09:36→18:09)
[2018-03-30] MEDS: Omega-3-Acid Ethyl Esters 1 GM Cap PO SCH ×2 (09:37→18:09)
[2018-03-30] MEDS: Megestrol Acetate 40 mg/ml Cup PO SCH ×2 (09:37→18:11)
[2018-03-30] MEDS: Pantoprazole 40 mg EC Tab PO SCH (09:40)
[2018-03-30] MEDS ORDERED: Ergocalciferol 50,000 Intl Units Cap PO SCH (11:40)
[2018-03-30] MEDS ORDERED: Gadodiamide 287 MG/ML VIAL (15ML) IV ONE (16:11)
[2018-03-30] MEDS: CYANOCOBALAMIN 500 MCG TAB PO SCH (18:11)
--- NOTE | 2018-03-30 20:46 | CP.PCM.PN ---
Subjective - Date & Time of Evaluation Date of Evaluation: 03/30/18 - Subjective Subjective: F/U Back pain, exacerbation. C/O severe pain R lower back, radiated to R leg. Objective - Vital Signs/Intake and Output Vital Signs (last 24 hours): Temp Pulse Resp BP Pulse Ox 98.4 F 91 H 20 127/72 92 L 03/30/18 16:10 03/30/18 16:10 03/30/18 16:10 03/30/18 16:10 03/30/18 16:10 - Medications Medications: Current Medications Atorvastatin Calcium (Lipitor) 10 mg PO HS [facility] Last Admin: 03/29/18 21:09 Dose: 10 mg Cyanocobalamin (Vitamin B12) 500 mcg PO DAILY [facility] Last Admin: 03/30/18 18:11 Dose: 500 mcg Enoxaparin Sodium (Lovenox) 40 mg SC DAILY [facility] PRN Reason: Protocol Ergocalciferol (Drisdol 50,000 Intl Units Cap) 1 cap PO MO [facility] Last Admin: 03/30/18 18:10 Dose: 1 cap Gabapentin (Neurontin) 600 mg PO DAILY [facility] Last Admin: 03/30/18 09:39 Dose: 600 mg Home Med (Empagliflozin [Jardiance]) 25 mg PO DAILY [facility] Home Med (Ropinirole [Requip]) 0.5 mg PO [facility] Insulin Detemir (Levemir) 18 units SC BID [facility] Last Admin: 03/30/18 18:09 Dose: 18 units Megestrol Acetate (Megace) 200 mg PO BID [facility] Last Admin: 03/30/18 18:11 Dose: 200 mg Memantine (Namenda) 10 mg PO Q12 [facility] Last Admin: 03/30/18 09:39 Dose: 10 mg Metformin HCl (Glucophage) 1,000 mg PO BID [facility] Last Admin: 03/30/18 18:09 Dose: 1,000 mg Morphine Sulfate (Morphine) 5 mg IVP Q4 PRN PRN Reason: Pain, severe (8-10) Nordt-2-Ivms Ethyl Esters (Lovaza) 1 gm PO BID [facility] Last Admin: 03/30/18 18:09 Dose: 1 gm Pantoprazole Sodium (Protonix Ec Tab) 40 mg PO DAILY [facility] Last Admin: 03/30/18 09:40 Dose: 40 mg Paroxetine HCl (Paxil) 10 mg PO DAILY [facility] Last Admin: 03/30/18 09:39 Dose: 10 mg Zolpidem Tartrate (Ambien) 5 mg PO HS PRN PRN Reason: Insomnia Last Admin: 03/29/18 23:46 Dose: 5 mg - Labs Labs: 03/30/18 05:30 03/30/18 05:30 PT 11.0 Seconds (9.8-13.1) 03/30/18 05:30 INR 1.0 03/30/18 05:30 APTT 27.8 Seconds (25.6-37.1) 03/30/18 05:30 - Constitutional Appears: No Acute Distress - Head Exam Head Exam: NORMAL INSPECTION - Eye Exam Eye Exam: PERRL - ENT Exam ENT Exam: Normal Exam - Neck Exam Neck Exam: Normal Inspection - Respiratory Exam Respiratory Exam: Clear to Ausculation Bilateral - Cardiovascular Exam Cardiovascular Exam: REGULAR RHYTHM - GI/Abdominal Exam GI & Abdominal Exam: Soft, Normal Bowel Sounds - Extremities Exam Extremities Exam: Normal Inspection - Back Exam Back Exam: vertebral tenderness - Neurological Exam Neurological Exam: Alert, CN II-XII Intact, Oriented x3 Additional comments: Mild decreased sensation distal legs/feet - Psychiatric Exam Psychiatric exam: Anxious - Skin Skin Exam: Warm Assessment and Plan (1) Acute exacerbation of chronic low back pain Status: Acute (2) Lumbar disc herniation with radiculopathy Status: Chronic (3) Status post lumbar laminectomy Status: Chronic (4) Diabetes mellitus Status: Chronic (5) Hyperglycemia due to type 2 diabetes mellitus Status: Acute (6) DM neuropathy, type II diabetes mellitus Status: Chronic (7) Hypercholesterolemia Status: Chronic - Assessment and Plan (Free Text) Plan: F/U MRI today, increased Morphine dose, Neurosurgeon and pain management consultation.
[2018-03-31 08:05] VITALS: RESP 20
[2018-03-31] MEDS: Megestrol Acetate 40 mg/ml Cup PO SCH (08:50)
[2018-03-31] MEDS: Omega-3-Acid Ethyl Esters 1 GM Cap PO SCH (08:50)
[2018-03-31] MEDS: Pantoprazole 40 mg EC Tab PO SCH (08:50)
[2018-03-31] MEDS: CYANOCOBALAMIN 500 MCG TAB PO SCH (08:54)
[2018-03-31] MEDS: Insulin Detemir 100 Units/ml Inj SC SCH (08:54)
[2018-03-31] MEDS ORDERED: Lidocaine 2% MPF (5 ml) Inj ONE (09:25)
[2018-03-31] MEDS ORDERED: Iohexol 300 10 ML ONE (09:26)
[2018-03-31] MEDS ORDERED: methylPREDNISolone Depo 80 mg/ml Inj ONE (09:26)
[2018-03-31] MEDS ORDERED: Bupivacaine HCl 0.5% PF (30 ml) Inj ONE (09:27)
[2018-03-31] MEDS ORDERED: Midazolam 2 MG/2 ML VIAL ONE (09:43)
[2018-03-31] MEDS ORDERED: Propofol 10 mg/ml Inj (20 ML) ONE (09:43)
[2018-03-31] MEDS ORDERED: Lactated Ringer's 500 ML IV ONE (09:48)
[2018-03-31] MEDS ORDERED: methylPREDNISolone Depo 80 mg/ml Inj IM ONE (09:48)
[2018-03-31] MEDS ORDERED: Iohexol 300 10 ML IJ ONE (09:48)
[2018-03-31] MEDS ORDERED: Lidocaine 2% MPF (5 ml) Inj INJ ONE (09:48)
[2018-03-31] MEDS ORDERED: Bupivacaine 0.5% Inj(30mL) IJ ONE (09:48)
--- NOTE | 2018-03-31 10:09 | CP.PCM.PN ---
Subjective - Date & Time of Evaluation Date of Evaluation: 03/31/18 Time of Evaluation: 10:00 - Subjective Subjective: 67 yo with failed back syndrome. Preliminary MRI with contrast read showed mild to moderate spondylotic changes throughout lower lumbar spine. There are soft tissue enhancement at surgical site, but patient doesn't exhibit clinical signs of infections. Decision was made to proceed with injection, away from the soft tissue sites, namely caudal epidural and right sacroiliac joint steroid injection. Patient tolerated procedure well, now resting comfortably in PACU. Objective - Vital Signs/Intake and Output Vital Signs (last 24 hours): Temp Pulse Resp BP Pulse Ox 98.1 F 64 20 107/64 97 03/31/18 08:04 03/31/18 08:04 03/31/18 08:04 03/31/18 08:04 03/31/18 08:04 - Medications Medications: Current Medications Atorvastatin Calcium (Lipitor) 10 mg PO HS [facility] Last Admin: 03/30/18 21:21 Dose: 10 mg Cyanocobalamin (Vitamin B12) 500 mcg PO DAILY [facility] Last Admin: 03/31/18 08:54 Dose: Not Given Enoxaparin Sodium (Lovenox) 40 mg SC DAILY [facility] PRN Reason: Protocol Ergocalciferol (Drisdol 50,000 Intl Units Cap) 1 cap PO MO [facility] Last Admin: 03/30/18 18:10 Dose: 1 cap Gabapentin (Neurontin) 600 mg PO DAILY [facility] Last Admin: 03/31/18 08:50 Dose: Not Given Home Med (Empagliflozin [Jardiance]) 25 mg PO DAILY [facility] Home Med (Ropinirole [Requip]) 0.5 mg PO [facility] Insulin Detemir (Levemir) 18 units SC BID [facility] Last Admin: 03/31/18 08:54 Dose: Not Given Megestrol Acetate (Megace) 200 mg PO BID [facility] Last Admin: 03/31/18 08:50 Dose: Not Given Memantine (Namenda) 10 mg PO Q12 [facility] Last Admin: 03/31/18 08:50 Dose: Not Given Metformin HCl (Glucophage) 1,000 mg PO BID [facility] Last Admin: 03/31/18 08:50 Dose: Not Given Morphine Sulfate (Morphine) 5 mg IVP Q4 PRN PRN Reason: Pain, severe (8-10) Last Admin: 03/31/18 08:48 Dose: 5 mg [id number] Ethyl Esters (Lovaza) 1 gm PO BID [facility] Last Admin: 03/31/18 08:50 Dose: Not Given Pantoprazole Sodium (Protonix Ec Tab) 40 mg PO DAILY [facility] Last Admin: 03/31/18 08:50 Dose: Not Given Paroxetine HCl (Paxil) 10 mg PO DAILY [facility] Last Admin: 03/31/18 08:50 Dose: Not Given Zolpidem Tartrate (Ambien) 5 mg PO HS PRN PRN Reason: Insomnia Last Admin: 03/29/18 23:46 Dose: 5 mg - Labs Labs: 03/30/18 05:30 03/30/18 05:30 PT 11.0 Seconds (9.8-13.1) 03/30/18 05:30 INR 1.0 03/30/18 05:30 APTT 27.8 Seconds (25.6-37.1) 03/30/18 05:30 - Back Exam Back Exam: paraspinal tenderness, vertebral tenderness Additional comments: Well-healed surgical scars. TTP over right sacroiliac joint. Assessment and Plan (1) Low back pain Assessment & Plan: 67 yo woman w/ failed back syndrome, exhibiting right lumbar radicular symptoms. - f/u neurosurgical evaluation - patient is s/p pain management injection, patient may go home if she has a good response to injection Status: Acute
[2018-03-31 11:03] VITALS: O2SAT 100
[2018-03-31 11:32] VITALS: BP 145/81; PULSE 75; TEMP 98.5
--- NOTE | 2018-03-31 13:30 | MRI ---
Date of service: 03/30/2018 PROCEDURE: MR LUMBAR SPINE WITH AND WITHOUT CONTRAST HISTORY: Lower back pain COMPARISON: MRI lumbar spine from 12/06/2016. CT lumbar spine from 10/10/2017. TECHNIQUE: Multiecho multiplanar sequences were performed through the lumbar spine with and without the use of intravenous contrast. 14 mL Omniscan was injected intravenously. FINDINGS: There is mild degenerative anterior listhesis of L4 on L5. There is normal lumbar lordosis. Bone marrow signal is within normal limits. There is no acute fracture or spondylolysis. Status post posterior spinal decompression at L4 and L5 and fixation with transpedicular screws The conus medullaris terminates at a normal level and the nerve roots of cauda equina are normal. There is enhancing granulation tissue in the ventral epidural space at L4 and L5 also extending into the L4-5 and L5-S1 neural foramina. T12-L1: No disc herniation, spinal canal stenosis or neural foraminal narrowing. L1-2: No disc herniation, spinal canal stenosis or neural foraminal narrowing. L2-3: Left foraminal and far lateral annular tear and small disc protrusion. No central spinal canal stenosis or neural foraminal narrowing. Mild bilateral facet arthropathy. L3-4: Diffuse posterior disc bulge in conjunction with moderate ligamentum flavum infolding result in mild spinal canal stenosis. Also noted is superimposed left foraminal and far lateral disc protrusions which impinge on the exiting left L3 nerve root. Moderate bilateral facet arthropathy contribute to mild right and moderate left neural foraminal narrowing. L4-5: Postoperative changes of left hemilaminectomy. Diffuse posterior disc bulge with superimposed broad-based central disc protrusion indents the ventral thecal sac and in conjunction with mild ligamentum flavum infolding result in mild spinal canal stenosis. Moderate bilateral facet arthropathy contribute to mild neural foraminal narrowing. L5-S1: Diffuse posterior disc bulge and mild central spinal canal stenosis. Moderate bilateral facet arthropathy contribute to moderate right and mild left neural foraminal narrowing. OTHER FINDINGS: There is mild enhancement in the midline scar from L3-L5. IMPRESSION: 1. Status post left hemilaminectomy at L4-5, diffuse posterior disc bulge with superimposed broad-based central disc protrusion which in conjunction with mild ligamentum flavum infolding result in mild spinal canal stenosis. Also noted is mild neural foraminal narrowing. 2. At L3-4 diffuse posterior disc bulge and moderate ligamentum flavum infolding result in mild spinal canal stenosis. Superimposed left foraminal and far lateral disc protrusions impinge on the exiting left L3 nerve root. Moderate bilateral facet arthropathy contribute to mild right and moderate left neural foraminal narrowing.
--- NOTE | 2018-03-31 21:34 | CP.PCM.DIS ---
Provider - Provider Date of Admission: 03/29/18 06:09 Attending physician: Andrae Nowak MD Consults: Neuro Surgery-Dr. Quigley Anesthesiology-Dr. Shah Time Spent in preparation of Discharge (in minutes): 35 Diagnosis - Discharge Diagnosis (1) Acute exacerbation of chronic low back pain Status: Acute Priority: High (2) Lumbar disc herniation with radiculopathy Status: Chronic Priority: High (3) Status post lumbar laminectomy Status: Chronic Priority: High (4) Diabetes mellitus Status: Chronic Priority: High (5) Hyperglycemia due to type 2 diabetes mellitus Status: Acute Priority: High (6) DM neuropathy, type II diabetes mellitus Status: Chronic Priority: Medium (7) Hypercholesterolemia Status: Chronic Priority: Medium Hospital Course - Lab Results Lab Results: Most Recent Lab Values WBC 8.5 K/uL (4.8-10.8) 03/30/18 05:30 RBC 4.03 Mil/uL (3.80-5.20) 03/30/18 05:30 Hgb 10.5 g/dL (12.0-16.0) L 03/30/18 05:30 Hct 33.0 % (34.0-47.0) L 03/30/18 05:30 MCV 81.9 fl (81.0-99.0) 03/30/18 05:30 MCH 26.2 pg (27.0-31.0) L 03/30/18 05:30 MCHC 32.0 g/dL (33.0-37.0) L 03/30/18 05:30 RDW 18.9 % (11.5-14.5) H 03/30/18 05:30 Plt Count 324 K/uL (130-400) 03/30/18 05:30 MPV 8.5 fl (7.2-11.7) 03/29/18 05:11 Neut % (Auto) 71.0 % (50.0-75.0) 03/29/18 05:11 Lymph % (Auto) 18.0 % (20.0-40.0) L 03/29/18 05:11 [place] % (Auto) 7.7 % (0.0-10.0) 03/29/18 05:11 Eos % (Auto) 2.3 % (0.0-4.0) 03/29/18 05:11 Baso % (Auto) 1.0 % (0.0-2.0) 03/29/18 05:11 Neut # (Auto) 7.8 K/uL (1.8-7.0) H 03/29/18 05:11 Lymph # (Auto) 2.0 K/uL (1.0-4.3) 03/29/18 05:11 [place] # (Auto) 0.8 K/uL (0.0-0.8) 03/29/18 05:11 Eos # (Auto) 0.2 K/uL (0.0-0.7) 03/29/18 05:11 Baso # (Auto) 0.1 K/uL (0.0-0.2) 03/29/18 05:11 PT 11.0 Seconds (9.8-13.1) 03/30/18 05:30 INR 1.0 03/30/18 05:30 APTT 27.8 Seconds (25.6-37.1) 03/30/18 05:30 Sodium 141 mmol/l (132-148) 03/30/18 05:30 Potassium 4.4 MMOL/L (3.6-5.0) 03/30/18 05:30 Chloride 105 mmol/L (98-107) 03/30/18 05:30 Carbon Dioxide 28 mmol/L (22-30) 03/30/18 05:30 Anion Gap 12 (10-20) 03/30/18 05:30 BUN 15 mg/dl (7-17) 03/30/18 05:30 Creatinine 0.6 mg/dl (0.7-1.2) L 03/30/18 05:30 Est GFR ( Amer) > 60 03/30/18 05:30 Est GFR (Non-Af Amer) > 60 03/30/18 05:30 POC Glucose (mg/dL) 136 mg/dL (65-110) H 03/31/18 10:09 Random Glucose 126 mg/dL (65-105) H 03/30/18 05:30 Calcium 9.6 mg/dL (8.4-10.2) 03/30/18 05:30 Total Bilirubin 0.2 mg/dl (0.2-1.3) 03/30/18 05:30 AST 24 U/L (14-36) 03/30/18 05:30 ALT 26 U/L (9-52) 03/30/18 05:30 Alkaline Phosphatase 73 U/L (38-126) 03/30/18 05:30 Total Protein 7.2 G/DL (6.3-8.2) 03/30/18 05:30 Albumin 4.0 g/dL (3.5-5.0) 03/30/18 05:30 Globulin 3.2 gm/dL (2.2-3.9) 03/30/18 05:30 Albumin/Globulin Ratio 1.3 (1.0-2.1) 03/30/18 05:30 Triglycerides 143 mg/DL (0-149) D 03/30/18 05:30 Cholesterol 203 mg/dL (0-199) H 03/30/18 05:30 LDL Cholesterol Direct 130 mg/dL (0-129) H 03/30/18 05:30 HDL Cholesterol 44 MG/DL (30-70) 03/30/18 05:30 Vitamin B12 429 pg/mL (239-931) 03/30/18 05:30 25-OH Vitamin D Total 43.1 NG/ML (30.0-100.0) 03/30/18 05:30 TSH 3rd Generation 1.78 mIU/ML (0.46-4.68) 03/30/18 05:30 Urine Color Straw (YELLOW) 03/29/18 19:47 Urine Clarity Clear (Clear) 03/29/18 19:47 Urine pH 6.0 (5.0-8.0) 03/29/18 19:47 Ur Specific [place] 1.028 (1.003-1.030) 03/29/18 19:47 Urine Protein Negative mg/dL (NEGATIVE) 03/29/18 19:47 Urine Glucose (UA) >=500 mg/dL (Normal) 03/29/18 19:47 Urine Ketones Negative mg/dL (NEGATIVE) 03/29/18 19:47 Urine Blood Negative (NEGATIVE) 03/29/18 19:47 Urine Nitrate Negative (NEGATIVE) 03/29/18 19:47 Urine Bilirubin Negative (NEGATIVE) 03/29/18 19:47 Urine Urobilinogen 0.2-1.0 mg/dL (0.2-1.0) 03/29/18 19:47 Ur Leukocyte Esterase Neg Jalen/uL (Negative) 03/29/18 19:47 Urine RBC (Auto) 3 /hpf (0-3) 03/29/18 19:47 Urine WBC Clumps (Auto) Cancelled 03/29/18 15:00 Urine Microscopic WBC 1 /hpf (0-5) 03/29/18 19:47 Ur Squamous Epith Cells < 1 /hpf (0-5) 03/29/18 19:47 Ur Transition Epith Cell Cancelled 03/29/18 15:00 Ur Renal Epithelial Cell Cancelled 03/29/18 15:00 Calcium Carbonate Cryst Cancelled 03/29/18 15:00 Calcium Phos Emily (Auto) Cancelled 03/29/18 15:00 Calcium Oxalate Crystal Cancelled 03/29/18 15:00 Leucine Crystals Cancelled 03/29/18 15:00 Cystine Crystals Cancelled 03/29/18 15:00 Uric Acid Crystals Cancelled 03/29/18 15:00 Triple Phos Crystals Cancelled 03/29/18 15:00 Tyrosine Crystals Cancelled 03/29/18 15:00 Other Crystals Cancelled 03/29/18 15:00 Amorphous Sediment Cancelled 03/29/18 15:00 Urine Bacteria Rare (<OCC) 03/29/18 19:47 Epithelial Casts (Auto) Cancelled 03/29/18 15:00 Fatty Casts Cancelled 03/29/18 15:00 Hyaline Casts Cancelled 03/29/18 15:00 Granular Casts (Auto) Cancelled 03/29/18 15:00 Waxy Casts Cancelled 03/29/18 15:00 Broad Casts Cancelled 03/29/18 15:00 RBC Casts Cancelled 03/29/18 15:00 WBC Casts Cancelled 03/29/18 15:00 Other Casts Cancelled 03/29/18 15:00 Urine Trichomonas Cancelled 03/29/18 15:00 Ur Yeast w Hyphae Cancelled 03/29/18 15:00 Urine Yeast (Budding) Cancelled 03/29/18 15:00 Urine Sperm (Auto) Cancelled 03/29/18 15:00 Ur Oval Fat Bodies Auto Cancelled 03/29/18 15:00 Urine Creatinine 45 mg/dL (20-320) 03/29/18 19:47 Urine Microalbumin 0.2 mg/dL 03/29/18 19:47 Microalb/Creat Ratio 5 (<30) 03/29/18 19:47 Blood Type O POSITIVE 03/29/18 05:11 Antibody Screen Negative 03/29/18 05:11 BBK History Checked Patient has bt 03/29/18 05:11 - Date & Time of H&P Date of H&P: 03/29/18 Time of H&P: 12:30 Discharge Exam - Head Exam Head Exam: NORMAL INSPECTION - Eye Exam Eye Exam: PERRL - ENT Exam ENT Exam: Normal Exam - Neck Exam Neck exam: Normal Inspection - Respiratory Exam Respiratory Exam: NORMAL BREATHING PATTERN - Cardiovascular Exam Cardiovascular Exam: REGULAR RHYTHM - GI/Abdominal Exam GI & Abdominal Exam: Normal Bowel Sounds, Soft - Extremities Exam Extremities exam: normal inspection - Back Exam Back exam: vertebral tenderness - Neurological Exam Neurological exam: Alert, CN II-XII Intact, Oriented x3 Additional comments: mild decreased sensation distal legs/feet. - Psychiatric Exam Psychiatric exam: Anxious - Skin Skin Exam: Warm Discharge Plan - Follow Up Plan Condition: FAIR Disposition: DISCHARGED TO HOME CARE Instructions: Spinal and Epidural Anesthesia, Low Back Pain (DC) Additional Instructions: follow up with primary MD, dr quigley, dr shah in 1 week Referrals: Raphael Quigley MD [Staff Provider] - Hailey Shah MD [Staff Provider] - Andrae Nowak MD [Family Provider] -
--- NOTE | 2018-03-31 21:56 | OP ---
PROCEDURE DATE: 03/31/2018 PREOPERATIVE DIAGNOSIS: Failed back syndrome. POSTOPERATIVE DIAGNOSIS: Failed back syndrome. PROCEDURE: Caudal epidural steroid injection and right sacroiliac joint steroid injection. ANESTHESIOLOGIST: Dr. Rhodes SURGEON: Hailey Ramirez MD TYPE OF ANESTHESIA: Monitored anesthesia care. COMPLICATIONS: None. SPECIMENS: None. DESCRIPTION OF PROCEDURE: As follows: After we had discussion of the procedure with the patient including its risks, benefits, alternatives, outcome data, and possibility of no effect or increased pain, the patient consented to the procedure. She denies any recent infection, bleeding tendencies, or being on anticoagulants. Decision was then made to proceed to the OR. The preliminary MRI readings were discussed with the patient. Although there are soft tissue enhancements at the surgical site, the patient does not have any clinical signs of infection. The risks, benefits, alternatives of doing injection were discussed with the patient and she elected to proceed. It was explained to the patient that the caudal epidural steroid injection and the sacroiliac joint injection will be away from the soft tissue enhancement site on the MRI. The result should not interfere with those findings. The patient was placed on the fluoroscopy table in a prone position with two pillows underneath her abdomen. The back was prepped and draped in the usual sterile fashion. A sterile technique was adhered to during the entire procedure. The fluoroscopy was turned towards the lateral position. The sacral hiatus was first palpated and marked. The skin of approximately 5 cm distal to this area was infiltrated with 1% lidocaine using 25-gauge needle. Subsequently, a 20-gauge 3-1/2-inch Tuohy needle was then incrementally advanced under fluoroscopic guidance until the tip of the needle walked into the sacral hiatus. This was confirmed by injecting approximately 1 mL of Isovue contrast. The contrast was observed migrating up to the L5 level. At this point, approximately 10 mL of 0.25% Marcaine and Depo-Medrol was gradually injected. The needle was then removed. The right sacroiliac joint was visualized on the anteroposterior view. The target was at the inferior pole of the posterior opening of the right sacroiliac joint. The skin overlying this area was then infiltrated with 1% lidocaine using 25-gauge needle. Subsequently, a 22-gauge 3-1/2 inch spinal needle was incrementally advanced under fluoroscopic guidance until the needle walked into the joint capsule. This was confirmed by injecting approximately 0.5 mL of Isovue contrast. Then, approximately 3 mL of 0.25% Marcaine and Depo-Medrol mixture was injected. The needle was then removed and the patient's back was cleaned, and dry bandages were applied. The patient was then transferred to the recovery area in good condition without any signs of DINING ROOM HELPER toxicity or any neurological deficit. She will be following in the office in approximately two to four weeks. En-Fabiano Ramirez MD
--- NOTE | 2018-04-02 13:03 | RAD ---
Date of service: 03/31/2018 PROCEDURE: Pain management epidural steroid injection. HISTORY: PAIN MANAGEMENT COMPARISON: None TECHNIQUE: Standard protocol for this study/examination. FINDINGS: Total fluoroscopic time (continuous mode) utilized during the procedure 99.5 (seconds). Total exam DLP: 9.77 (mGy). IMPRESSION: Submitted images from the current procedure: 3.0
== END 2018-03-31 16:00 | disposition home health service (06) ==
LOC: H.ER 03:42 → H.ERHOLD 06:09 → H.MEDSURG1 08:10
PROVIDERS: ADMIT Internal Medicine Pulmonary Disease; ATTEND Internal Medicine Pulmonary Disease
DX: M51.16 Intervertebral disc disorders with radiculopathy, lumbar region (principal); E03.9 Hypothyroidism, unspecified; E11.319 Type 2 diabetes mellitus with unspecified diabetic retinopathy without macular edema; E11.40 Type 2 diabetes mellitus with diabetic neuropathy, unspecified; E11.65 Type 2 diabetes mellitus with hyperglycemia; E78.00 Pure hypercholesterolemia, unspecified; E78.5 Hyperlipidemia, unspecified; F03.90 Unspecified dementia, unspecified severity, without behavioral disturbance, psychotic disturbance, mood disturbance, and anxiety; F41.9 Anxiety disorder, unspecified; G89.29 Other chronic pain; I10 Essential (primary) hypertension; M06.9 Rheumatoid arthritis, unspecified; D64.9 Anemia, unspecified; E05.90 Thyrotoxicosis, unspecified without thyrotoxic crisis or storm; F32.9 Major depressive disorder, single episode, unspecified; K29.70 Gastritis, unspecified, without bleeding; M19.90 Unspecified osteoarthritis, unspecified site; Z79.899 Other long term (current) drug therapy; M54.5 Low back pain
CPT/HCPCS: 36415; 72114; 72158; 72170; 80053; 80061; 81003; 82043; 82306; 82570; 82607; 82948; 84443; 85025; 85027; 85610; 85730; 86850; 86900; 96374; 96375; 96376; 99284; A9579; G0260; G0378; J1040; J1885; J2250; J2270; J3010; J7120; Q9967

== ENCOUNTER 2018-04-07 09:51 | Emergency (ER) | payer MEDICARE, OTHER ==
[2018-04-07] MEDS ORDERED: Iohexol 300 10 ML ONE (12:40)
[2018-04-07] MEDS ORDERED: MethylPREDNISolone Depo 40 mg/ml Inj ONE (12:40)
[2018-04-07] MEDS ORDERED: Lactated Ringer's 1,000 ML IV ONE (13:13)
[2018-04-07] MEDS ORDERED: Iohexol 240 (10 ml) IVP ONE (13:25)
[2018-04-07] MEDS ORDERED: Bupivacaine 0.5% Inj(30mL) IJ ONE (13:25)
[2018-04-07] MEDS ORDERED: MethylPREDNISolone Depo 40 mg/ml Inj IM ONE (13:25)
[2018-04-07] MEDS ORDERED: Lidocaine 2% MPF (5 ml) Inj INJ ONE (13:25)
[2018-04-07 14:47] VITALS: BMI 26.7
[2018-04-07] MEDS ORDERED: Sodium Chloride 0.9% 1,000 ML IV SCH (15:00)
[2018-04-07 15:23] VITALS: RESP 18; O2SAT 97
[2018-04-07 15:35] LABS: BASO # 0.1 K/uL (0.0-0.2); BASO % 0.7 % (0.0-2.0); EOS # 0.2 K/uL (0.0-0.7); EOS % 2.2 % (0.0-4.0); HEMOGLOBIN 10.7 g/dL (12.0-16.0); LYMPH # 2.3 K/uL (1.0-4.3); LYMPH % 21.6 % (20.0-40.0); MEAN CELL VOLUME 82.9 fl (81.0-99.0); MEAN CORPUSCULAR HEMOGLOBIN 25.6 pg (27.0-31.0); MEAN CORPUSCULAR HGB CONC 30.9 g/dL (33.0-37.0); MEAN PLATELET VOLUME 8.7 fl (7.2-11.7); MONO # 0.7 K/uL (0.0-0.8); MONO % 6.5 % (0.0-10.0); NEUT # 7.5 K/uL (1.8-7.0); NRBC % 0.1 % (0.0-0.0); RBC 4.2 Mil/uL (3.80-5.20); RED CELL DISTRIBUTION WIDTH 18.1 % (11.5-14.5); WHITE BLOOD COUNT 10.8 K/uL (4.8-10.8)
[2018-04-07 16:00] VITALS: BP 142/78; PULSE 68; TEMP 97.6
--- NOTE | 2018-04-08 01:27 | OP ---
PROCEDURE DATE: 04/06/2018 PREOPERATIVE DIAGNOSIS: Failed back syndrome. POSTOPERATIVE DIAGNOSIS: Failed back syndrome. PROCEDURE: Right L4 and L5 medial branch nerve radiofrequency, right L5-S1 transforaminal epidural steroid injection, and right sacroiliac joint steroid injection. SURGEON: Hailey Ramirez MD ANESTHESIOLOGIST: Herbert Liang MD ANESTHESIA TYPE: Monitored anesthesia care. COMPLICATIONS: None. SPECIMENS: None. DESCRIPTION OF PROCEDURE: As follows: After we had a discussion of the procedure with the patient including its risks, benefits, alternatives, outcome data, and possibility of no effect or increased pain, the patient consented to the procedure. She denies any recent infection, bleeding tendencies, or being on anticoagulants. A decision was then made to proceed to the OR. The patient was placed on the fluoroscopy table in a prone position with two pillows underneath her abdomen. The back was prepped and draped in the usual sterile fashion. A sterile technique was adhered to during the entire procedure. The L4 and L5 medial branch nerves were located at the intersection of the superior articular process and transverse process of the L4 and L5 pedicles. The skin overlying the above target area was then infiltrated with 1% lidocaine using 25-gauge needle. Subsequently, a 22-gauge 3.5-inch spinal needle was incrementally advanced under fluoroscopic guidance until the tip of the needle made bony contact with both targets. After satisfactory position of both needles, sensory and motor testing was carried out to the satisfactory results. The radiofrequency was carried out at 80 degree Celsius for approximately 1.5 minutes. At the end of the procedure, each nerve was treated with a combination of 0.5% Marcaine and Depo-Medrol. The needle was then removed. Then, the fluoroscope was turned towards the right at approximately 25 degrees until the right L5 pedicle was optimally visualized. The skin overlying the 6 o' clock position of the pedicle was then infiltrated with 1% lidocaine using 25-gauge needle. Subsequently, a 22-gauge 3.5-inch spinal needle was incrementally advanced under fluoroscopic guidance until the tip of the needle walked into the intervertebral foramen. After satisfactory positioning of the needle, approximately 0.5 mL of Isovue contrast was injected, showing appropriate epidural spread. At this point, approximately 3 mL of 0.25% Marcaine and Depo-Medrol mixture was injected. The needle was then removed. Then, the right sacroiliac joint was visualized on the anteroposterior view. The target is at inferior pole of the posterior opening of the right sacroiliac joint. The skin overlying this area was then infiltrated with 1% lidocaine using 25-gauge needle. Subsequently, a 22-gauge 3.5-inch spinal needle was then incrementally advanced under fluoroscopic guidance until the tip of the needle walked into the joint capsule. This was confirmed by injecting approximately 0.5 mL of Isovue contrast. After appropriate placement of the needle, approximately 3 mL of 0.25% Marcaine and Depo-Medrol mixture was injected. The needle was removed. The patient's back was cleaned, and dry bandages were applied. The patient was then transported to recovery area in good conditions without any signs of TRANSONIC ENGINEER toxicity or any neurological deficit. She will be following in the office in approximately two to four weeks. En-Fabiano Ramirez MD
--- NOTE | 2018-04-08 16:53 | RAD ---
Date of service: 04/07/2018 PROCEDURE: Fluoroscopy up to 1 hr. HISTORY: PAIN MANAGEMENT COMPARISON: None TECHNIQUE: Standard protocol for this study/examination. FINDINGS: Total fluoroscopic time (continuous mode) utilized during the procedure 53.2 (seconds). Total exam DLP: 16.79 (mGy). IMPRESSION: Less than 1 hr fluoroscopic assistance provided during performance of the procedure.
== END 2018-04-07 12:55 | disposition short-term general hospital (02) ==
LOC: H.ER 09:51 → H.ER.PEDS 09:51 → H.ER 12:55
DX: M54.16 Radiculopathy, lumbar region (principal); E11.40 Type 2 diabetes mellitus with diabetic neuropathy, unspecified
CPT/HCPCS: 64483; 64635; 82948; 85025; 99284; J1030; J2270; J7120; Q9966; Q9967

== ENCOUNTER 2018-04-28 09:17 | Day surgery (SDC) | payer MEDICARE, OTHER ==
[2018-04-28] MEDS ORDERED: Lidocaine 1% 20 MG/2 ML PF AMP ONE (09:43)
[2018-04-28] MEDS ORDERED: EPINEPHrine 1 mg/ml (1:1000) Inj ONE (09:43)
[2018-04-28] MEDS ORDERED: Maxitrol Opht Susp ONE (09:43)
[2018-04-28] MEDS ORDERED: Tetracaine 0.5% Ophth 2 ML BOTTLE ONE (09:43)
[2018-04-28 09:44] VITALS: BMI 26.4
[2018-04-28] MEDS ORDERED: Pilocarpine 1% Opht Soln ONE (09:44)
[2018-04-28] MEDS ORDERED: Chondroitin/Hyaluronate Opth Syringe KIT (0.55 ml-0.5 ml) IO ONE (09:44)
[2018-04-28] MEDS ORDERED: STERILE IRRIGATING SOLUTION 45 ML IR ONE (09:44)
[2018-04-28] MEDS ORDERED: CA CL/K CL/NA CL 500 ML IR ONE (09:44)
[2018-04-28] MEDS ORDERED: Flurbiprofen 0.03% Opht SOLN OD SCH ×2 (09:45→11:00)
[2018-04-28] MEDS ORDERED: Carbachol 0.01% IO ONE (09:45)
[2018-04-28] MEDS ORDERED: Povidone Iodine 5% Opht SOLUTION ONE (09:45)
[2018-04-28] MEDS ORDERED: Phenylephrine 2.5% Opht Soln OD SCH ×2 (09:45→11:00)
[2018-04-28] MEDS ORDERED: Tropicamide 1% Opht 150 DROP/15 ML OD SCH ×2 (09:45→11:00)
[2018-04-28 10:20] VITALS: RESP 18
[2018-04-28] MEDS ORDERED: Phenylephrine 2.5% Opht Soln OD ONE (11:00)
[2018-04-28] MEDS ORDERED: Tropicamide 1% Opht 150 DROP/15 ML OD ONE (11:00)
[2018-04-28] MEDS ORDERED: Flurbiprofen 0.03% Opht SOLN OD ONE (11:00)
[2018-04-28] MEDS ORDERED: Midazolam 2 MG/2 ML VIAL ONE ×2 (12:28→14:20)
[2018-04-28] MEDS ORDERED: Lactated Ringer's 1,000 ML IV ONE (12:45)
[2018-04-28] MEDS ORDERED: Pilocarpine 1% Opht Soln OD ONE (12:55)
[2018-04-28 13:40] VITALS: O2SAT 96
[2018-04-28 14:01] VITALS: BP 128/76; PULSE 72; TEMP 97.6
--- NOTE | 2018-04-29 08:37 | OP ---
PROCEDURE DATE: 04/28/2018 SURGEON: SALOME VUONG MD ANESTHESIOLOGIST: MILLY NAILS MD ANESTHESIA: LOCAL / IV SEDATION PREOPERATIVE DIAGNOSIS: CATARACT RIGHT EYE. POSTOPERATIVE DIAGNOSIS: CATARACT RIGHT EYE. OPERATION: CLEAR CORNEAL PHACOEMULSIFICATION WITH LENS IMPLANT RIGHT EYE. PREPARATION AND PROCEDURE: After the patient was prepped and draped in the usual manner for sterile ophthalmic surgery, local IV sedation was administered; eye seals were applied to the upper and lower lid margins and an adult wire lid speculum was placed within the lids. Under microsurgical control, a two-step clear corneal incision was made into the anterior chamber. The initial incision was perpendicular to the corneal plane. The second incision with the keratome was placed at a 45-degree angle to the first incision. One cc of one percent Xylocaine MPF was instilled into the anterior chamber to achieve proper intraocular anesthesia. At this time, the Viscoelastic was injected into the anterior chamber for protection of the endothelium and for maintenance of the chamber depth. A 360-degree continuous curvilinear capsulorrhexis was performed using a pre-bent 25-gauge needle. Hydrodissection and hydrodelineation were performed using a Calderon cannula and balanced salt solution. Utilizing the tip of the Calderon cannula, the nucleus was rotated freely within the capsular bag. A standard one-handed phacoemulsification was utilized at this time for sculpting and rotating of the nucleus. The nucleus was fragmented in its entirety and aspirated without any consequence. A standard I&A was carried out for the residual cortical material. No residual material was noted within the capsular bag. The posterior capsule was noted to be clear. Additional Viscoelastic was injected into the capsular bag in preparation for lens implantation. After this has been satisfactorily achieved the intraocular lens injected through the corneal incision into the capsular bag. The intraocular lens was manipulated until it was properly oriented and the Viscoelastic was evacuated from the capsular bag and anterior chamber. The anterior chamber was reformed with balanced salt solution. The corneal incision was irrigated with BSS. The intraocular pressure was found to be within normal limits. This terminated the procedure. The speculum and lid drapes were removed. TobraDex ophthalmic suspension and Pilocarpine 1% drops one drop was applied to the eye. POSTOPERATIVE CONDITION: The patient was brought to the Post anesthesia Recovery area with stable vital signs. DSALOME FUNK MD
== END 2018-04-28 14:10 | disposition home or self-care (01) ==
LOC: H.OPSURG 09:17
PROVIDERS: ATTEND Ophthalmology
DX: H25.811 Combined forms of age-related cataract, right eye (principal); E11.9 Type 2 diabetes mellitus without complications; M06.9 Rheumatoid arthritis, unspecified; E78.5 Hyperlipidemia, unspecified; F32.9 Major depressive disorder, single episode, unspecified; K21.9 Gastro-esophageal reflux disease without esophagitis
CPT/HCPCS: 66984; 82948; J0171; J0360; J2250; J3010; J7120; V2632

== ENCOUNTER 2018-06-22 10:17 | Emergency (ER) | payer MEDICARE ==
[2018-06-22 10:30] VITALS: O2SAT 98
[2018-06-22 10:31] VITALS: BMI 26.5
--- NOTE | 2018-06-22 12:38 | ED PDOC ---
HPI: Back Time Seen by Provider: 06/22/18 11:12 Chief Complaint (Nursing): Back Pain Chief Complaint (Provider): Back Pain History Per: Patient History/Exam Limitations: no limitations Onset/Duration Of Symptoms: Other (chronic, but worse since x1 week) Current Symptoms Are (Timing): Still Present Additional Complaint(s): 67 year old female presents to the ED for evaluation of chronic lower back pain worsening over the last week s/p having three back surgeries in the past, the most recent in April 2018. Patient notes the pain today is the same she has had for years, but the Naproxen and Tramadol prescribed to her has not been helping. After her surgery in April, she states she had a full followup with her neurologist who removed all her sutures and instructed her to continue with the pain management. Otherwise denies weakness, numbness, dysuria, frequency, incontinence, leg pain, difficulty ambulating, and fever. PMD: Andrae Nowak Past Medical History Reviewed: Historical Data, Nursing Documentation, Vital Signs Vital Signs: Last Vital Signs Temp 97 F L 06/22/18 10:29 Pulse 96 H 06/22/18 10:29 Resp BP 125/78 06/22/18 10:29 Pulse Ox 98 06/22/18 10:29 - Medical History PMH: Anemia, Anxiety, Arthritis, Back Problems, Dementia, Depression, Diabetes, Gastritis, HTN, Hypercholesterolemia, Hypothyroidism, Rheumatoid Arthritis, Chronic Pain Denies: Chronic Kidney Disease - Surgical History Surgical History: Back Surgery (x3), Hernia Repair - Family History Family History: States: Unknown Family Hx - Social History Current smoker - smoking cessation education provided: No Alcohol: None Drugs: Denies - Home Medications Home Medications: Ambulatory Orders Medication Instructions Recorded RX: Lactulose [Generlac] 30 ml PO BID PRN 10/29/17 RX: Empagliflozin [Jardiance] 25 mg PO DAILY 11/04/17 RX: Ergocalciferol (Vitamin D2) 50,000 unit PO MO 11/04/17 [Vitamin D2] RX: Insulin Detemir [Levemir] 22 unit SC BID 11/04/17 RX: Megestrol Acetate [Megace] 30 ml PO BID 11/04/17 RX: Memantine [Namenda] 10 mg PO Q12 11/04/17 RX: Metformin HCl [Metformin HCl 1,000 mg PO BID 11/04/17 ER] RX: Pantoprazole Sodium [Protonix] 40 mg PO DAILY 11/04/17 RX: Diclofenac Sodium [Voltaren] 1 applic TOP QID 03/04/18 RX: Gabapentin [Neurontin] 600 mg PO Q8 03/04/18 Cyanocobalamin [Vitamin B12 1000 1,000 mcg PO DAILY 05/12/18 mcg Tab] Fesoterodine Fumarate [Toviaz] 4 mg PO DAILY 05/12/18 Icosapent Ethyl [Vascepa] 2 gm PO Q12 05/12/18 Promethazine HCl/Codeine 10 ml PO Q6 PRN 05/12/18 [Prometh-Codein 6.25-10 mg/5 ml] RX: Doxepin [Sinequan] 10 mg PO Q12 05/12/18 RX: Ibuprofen [Motrin Tab] 800 mg PO Q8 PRN 05/12/18 RX: traMADol [Ultram] 50 mg PO DAILY PRN 05/12/18 Tamsulosin [Flomax] 0.4 mg PO DAILY 05/12/18 Venlafaxine HCl [Venlafaxine HCl 75 mg PO DAILY 05/12/18 ER] rOPINIRole [Requip] 1 mg PO HS 05/12/18 oxyCODONE/Acetaminophen [Percocet 1 tab PO Q6 #20 tab 05/14/18 5/325 mg Tab] - Allergies Allergies/Adverse Reactions: Allergies Allergy/AdvReac Type Severity Reaction Status Date / Time No Known Allergies Allergy Verified 06/22/18 10:33 Review of Systems ROS Statement: Except As Marked, All Systems Reviewed And Found Negative Constitutional: Negative for: Fever Genitourinary Female: Negative for: Dysuria, Frequency, Incontinence Musculoskeletal: Positive for: Back Pain (lower). Negative for: Leg Pain Neurological: Negative for: Weakness, Numbness, Other (difficulty walking) Physical Exam - Reviewed Nursing Documentation Reviewed: Yes Vital Signs Reviewed: Yes - Physical Exam Appears: Positive for: No Acute Distress. Negative for: Uncomfortable Head Exam: Positive for: ATRAUMATIC, NORMOCEPHALIC Skin: Positive for: Normal Color, Warm, Dry Eye Exam: Positive for: Normal appearance ENT: Positive for: Normal ENT Inspection Neck: Positive for: Normal, Painless ROM, Supple Cardiovascular/Chest: Positive for: Regular Rate, Rhythm Respiratory: Positive for: Normal Breath Sounds. Negative for: Respiratory Distress Gastrointestinal/Abdominal: Positive for: Normal Exam, Soft. Negative for: Tenderness Back: Positive for: Normal Inspection, Other (bilateral diffuse lower back pain with healing surgical scar, no erythema or discharge) Extremity: Positive for: Normal ROM Neurologic/Psych: Positive for: Alert, Oriented (x3), Gait (steady, unassissted) - ECG O2 Sat by Pulse Oximetry: 98 (RA) Pulse Ox Interpretation: Normal - Progress Re-evaluation Time: 13:00 Condition: Re-examined, Improved Medical Decision Making Medical Decision Making: Time: 1136 Initial Plan: acute on chronic back pain --U-dip --Morphine 4mg IM --Reevaluate Scribe Attestation: Documented by Lauren Goss acting as a scribe for Blanka Clay MD. Provider Scribe Attestation: All medical record entries made by the Scribe were at my direction and personally dictated by me. I have reviewed the chart and agree that the record accurately reflects my personal performance of the history, physical exam, medical decision making, and the department course for this patient. I have also personally directed, reviewed, and agree with the discharge instructions and disposition. Disposition - Clinical Impression Clinical Impression: Chronic back pain - Patient ED Disposition Is Patient to be Admitted: No Doctor Will See Patient In The: Office Counseled Patient/Family Regarding: Studies Performed, Diagnosis, Need For Followup - Disposition Referrals: Raphael Montes MD [Staff Provider] - Andrae Nowak MD [Family Provider] - Disposition: Routine/Home Disposition Time: 13:00 Condition: GOOD Additional Instructions: JUNG NELSON, thank you for letting us take care of you today. Your provider was Blanka Clay MD and you were treated for BACK PAIN. The emergency medical care you received today was directed at your acute symptoms. If you were prescribed any medication, please fill it and take as directed. It may take several days for your symptoms to resolve. Return to the Emergency Department if your symptoms worsen, do not improve, or if you have any other problems. Please contact your doctor or call one of the physicians/clinics you have been referred to that are listed on the Patient Visit Information form that is included in your discharge packet. Bring any paperwork you were given at discharge with you along with any medications you are taking to your follow up visit. Our treatment cannot replace ongoing medical care by a primary care provider outside of the emergency department. Thank you for allowing the [facility] team to be part of your care today. If you had an X-Ray or CT scan: A Radiologist will review the ED reading if any change in treatment is needed we will contact you. If you had a blood, urine, or wound culture: It will take several days for the results, if any change in treatment is needed we will contact you. If you had an STI test: It will take 48 hours for the results. Please call after 1 week if you have not heard back. Instructions: Chronic Pain (DC) Print Language: GERMAN
[2018-06-22 14:25] VITALS: BP 128/78; PULSE 78; RESP 20; TEMP 98.4
== END 2018-06-22 14:05 | disposition home or self-care (01) ==
LOC: H.ER 10:17
DX: M54.5 Low back pain (principal); G89.29 Other chronic pain; I10 Essential (primary) hypertension; E11.9 Type 2 diabetes mellitus without complications; F03.90 Unspecified dementia, unspecified severity, without behavioral disturbance, psychotic disturbance, mood disturbance, and anxiety; Z86.59 Personal history of other mental and behavioral disorders; M06.9 Rheumatoid arthritis, unspecified; Z79.4 Long term (current) use of insulin; E03.9 Hypothyroidism, unspecified
CPT/HCPCS: 96372; 99283; J2270

== ENCOUNTER 2018-06-30 08:37 | Day surgery (SDC) | payer MEDICARE, OTHER ==
[2018-06-30] MEDS ORDERED: Maxitrol Opht Susp ONE (09:28)
[2018-06-30] MEDS ORDERED: CA CL/K CL/NA CL 500 ML IR ONE (09:28)
[2018-06-30] MEDS ORDERED: Chondroitin/Hyaluronate Opth Syringe KIT (0.55 ml-0.5 ml) IO ONE ×3 (09:29→12:59)
[2018-06-30] MEDS ORDERED: Carbachol 0.01% IO ONE (09:29)
[2018-06-30] MEDS ORDERED: STERILE IRRIGATING SOLUTION 45 ML IR ONE (09:29)
[2018-06-30] MEDS ORDERED: Phenylephrine 2.5% Opht Soln OS ONE ×2 (09:45→09:50)
[2018-06-30] MEDS ORDERED: Flurbiprofen 0.03% Opht SOLN OS ONE ×2 (09:45→09:50)
[2018-06-30] MEDS ORDERED: Tropicamide 1% Opht 150 DROP/15 ML OS ONE ×2 (09:45→09:50)
[2018-06-30] MEDS ORDERED: Lactated Ringer's 1,000 ML IV ONE (09:50)
[2018-06-30] MEDS ORDERED: Midazolam 2 MG/2 ML VIAL ONE (12:36)
[2018-06-30] MEDS: Tetracaine 0.5% Ophth 2 ML BOTTLE ONE ×2 (12:44→12:45)
[2018-06-30] MEDS: Lidocaine 1% 20 MG/2 ML PF AMP ONE ×2 (12:45→12:57)
[2018-06-30] MEDS: Povidone Iodine 5% Opht SOLUTION ONE ×2 (12:45→12:47)
[2018-06-30] MEDS: EPINEPHrine 1 mg/ml (1:1000) Inj ONE ×2 (12:46→13:01)
[2018-06-30] MEDS: Pilocarpine 1% Opht Soln ONE ×2 (12:47→13:05)
[2018-06-30] MEDS ORDERED: Maxitrol Opht Susp OS ONE ×2 (12:47→13:05)
[2018-06-30] MEDS ORDERED: Acetylcholine 1% Opth System Pack IO ONE ×2 (12:47→13:03)
[2018-06-30] MEDS ORDERED: BSS 15 ML SOL IR ONE (12:48)
[2018-06-30 14:32] VITALS: BP 127/53; PULSE 81; RESP 18; TEMP 98.5
[2018-06-30 16:09] VITALS: O2SAT 96
--- NOTE | 2018-07-01 07:09 | OP ---
PROCEDURE DATE: 06/30/2018 SURGEON: SALOME VUONG MD ANESTHESIOLOGIST: MILLY NAILS MD ANESTHESIA: LOCAL / IV SEDATION PREOPERATIVE DIAGNOSIS: CATARACT LEFT EYE. POSTOPERATIVE DIAGNOSIS: CATARACT LEFT EYE. OPERATION: CLEAR CORNEAL PHACOEMULSIFICATION WITH LENS IMPLANT LEFT EYE. PREPARATION AND PROCEDURE: After the patient was prepped and draped in the usual manner for sterile ophthalmic surgery, local IV sedation was administered; eye seals were applied to the upper and lower lid margins and an adult wire lid speculum was placed within the lids. Under microsurgical control, a two-step clear corneal incision was made into the anterior chamber. The initial incision was perpendicular to the corneal plane. The second incision with the keratome was placed at a 45-degree angle to the first incision. One cc of one percent Xylocaine MPF was instilled into the anterior chamber to achieve proper intraocular anesthesia. At this time, the Viscoelastic was injected into the anterior chamber for protection of the endothelium and for maintenance of the chamber depth. A 360-degree continuous curvilinear capsulorrhexis was performed using a pre-bent 25-gauge needle. Hydrodissection and hydrodelineation were performed using a Calderon cannula and balanced salt solution. Utilizing the tip of the Calderon cannula, the nucleus was rotated freely within the capsular bag. A standard one-handed phacoemulsification was utilized at this time for sculpting and rotating of the nucleus. The nucleus was fragmented in its entirety and aspirated without any consequence. A standard I&A was carried out for the residual cortical material. No residual material was noted within the capsular bag. The posterior capsule was noted to be clear. Additional Viscoelastic was injected into the capsular bag in preparation for lens implantation. After this has been satisfactorily achieved the intraocular lens injected through the corneal incision into the capsular bag. The intraocular lens was manipulated until it was properly oriented and the Viscoelastic was evacuated from the capsular bag and anterior chamber. The anterior chamber was reformed with balanced salt solution. The corneal incision was irrigated with BSS. The intraocular pressure was found to be within normal limits. This terminated the procedure. The speculum and lid drapes were removed. TobraDex ophthalmic suspension and Pilocarp[place] 1% drops one drop was applied to the eye. POSTOPERATIVE CONDITION: The patient was brought to the Post anesthesia Recovery area with stable vital signs. DSALOME FUNK MD
== END 2018-06-30 15:44 | disposition home or self-care (01) ==
LOC: H.OPSURG 08:37
PROVIDERS: ATTEND Ophthalmology
DX: H25.812 Combined forms of age-related cataract, left eye (principal); M19.90 Unspecified osteoarthritis, unspecified site; K21.9 Gastro-esophageal reflux disease without esophagitis; E11.9 Type 2 diabetes mellitus without complications; E78.5 Hyperlipidemia, unspecified; F32.9 Major depressive disorder, single episode, unspecified
CPT/HCPCS: 66984; 82948; J0171; J2250; J3010; J7120; V2632

== ENCOUNTER 2018-07-24 10:08 | Day surgery (SDC) | payer MEDICARE ==
[2018-07-24] MEDS ORDERED: Lactated Ringer's 1,000 ML IV ONE (10:48)
--- NOTE | 2018-07-24 10:58 | CP.SDSHP ---
Same Day Surgery H & P - History Proposed Procedure: Bilateral sacroiliac joint injection Pre-Op Diagnosis: Failed back syndrome - Allergies Allergies: Allergies No Known Allergies Allergy (Verified 07/24/18 10:49) - Physical Exam Vital Signs: Vital Signs 07/24/18 07/24/18 10:27 10:39 Temperature 97.6 F Pulse Rate 70 76 Respiratory 18 Rate Blood Pressure 113/43 L Neuro: WNL Heart: WNL Lungs: WNL GI: WNL - Impression Pt. Evaluated Today:Candidate for Anesthesia & Procedure: Yes Short Stay Discharge - Short Stay Discharge Admitting Diagnosis/Reason for Visit: M47.816 Disposition: HOME/ ROUTINE Follow-up: At clinic
[2018-07-24] MEDS ORDERED: methylPREDNISolone Depo 80 mg/ml Inj ONE (11:08)
[2018-07-24] MEDS ORDERED: Bupivacaine HCl 0.5% PF (30 ml) Inj ONE (11:09)
[2018-07-24] MEDS ORDERED: Lidocaine 1% Inj (20ml) ONE (11:09)
[2018-07-24] MEDS ORDERED: Iohexol 300 10 ML ONE (11:19)
[2018-07-24] MEDS ORDERED: Lidocaine 1% 20 MG/2 ML PF AMP EP ONE (11:29)
[2018-07-24] MEDS ORDERED: Iohexol 300 10 ML IJ ONE (11:30)
[2018-07-24] MEDS ORDERED: methylPREDNISolone Depo 80 mg/ml Inj IM ONE (11:34)
[2018-07-24] MEDS ORDERED: Bupivacaine 0.5% Inj(30mL) IJ ONE (11:34)
[2018-07-24] MEDS ORDERED: Bupivacaine HCl 0.5% PF (30 ml) Inj IJ ONE (11:35)
[2018-07-24] MEDS ORDERED: Lactated Ringer's 1,000 ML IV SCH (11:45)
[2018-07-24 12:31] VITALS: BP 142/72; PULSE 68; RESP 18; TEMP 97.5
[2018-07-24 12:33] VITALS: O2SAT 97
--- NOTE | 2018-07-24 13:21 | OP ---
PROCEDURE DATE: 07/24/2018 PREOPERATIVE DIAGNOSIS: Failed back syndrome. POSTOPERATIVE DIAGNOSIS: Failed back syndrome. PROCEDURE: Bilateral sacroiliac joint steroid injection and bilateral lumbar trigger point injection. SURGEON: Hailey Ramirez MD. TYPE OF ANESTHESIA: Monitored anesthesia care. ANESTHESIA ADMINISTERED BY: Ludwin Ferreira MD COMPLICATIONS: None. SPECIMEN: None. DESCRIPTION OF PROCEDURE: After we had a discussion of the procedure with the patient including its risks, benefits, alternatives, outcome data, and possibility of no effect or increased pain, the patient consented to the procedure. She denies any recent infection, bleeding tendencies or being on anticoagulants. Decision was then made to proceed to the OR. The patient was placed on the fluoroscopy table in a prone position with two pillows underneath her abdomen. The back was prepped and draped in the usual sterile fashion, a sterile technique was adhered to during the entire procedure. The bilateral sacroiliac joints were first visualized on the anterior-posterior view. The posterior opening was differentiated from the anterior opening by turning the fluoroscopy towards the contralateral oblique angle at approximately 15 degrees. The procedure was first performed on the right side. The skin overlying the target was infiltrated with 1% lidocaine using 25-gauge needle. Subsequently, a 22-gauge 3.5-inch spinal needle was then incrementally advanced under fluoroscopic guidance until tip of the needle walked into the joint capsule. This was confirmed by injecting approximately 0.5 mL of Isovue contrast. After appropriate placement of the needle, approximately 3 mL of 0.5% Marcaine and Depo-Medrol mixture was injected. The needle was then removed. The same exact procedure was performed on the contralateral left side using the same medications and techniques. Bilateral lumbar trigger points were palpated and identified. Using a 25-gauge 1.5 inch needle approximately 10 mL of 0.5% Marcaine mixture was injected into the trigger points, one on each side. The patient tolerated the procedure well. At the end of the case, the patient was transported to the recovery area. She displayed no signs of SHELLACKER toxicity or any neurological deficit. She will be followed in the office in approximately two to four weeks. Hailey Ramirez MD [facility] # [id number]
--- NOTE | 2018-07-27 15:17 | RAD ---
Date of service: 07/24/2018 PROCEDURE: Intraoperative Fluoroscopy. HISTORY: PAIN MANAGEMENT FINDINGS: Fluoroscopic assistance was provided for percutaneous sacroiliac joint pain management. Please refer to the operative report from KENRICK Bello. 6.77 mGy cumulative dose with 24.2 sec of fluoroscopy time utilized.
== END 2018-07-24 13:05 | disposition home or self-care (01) ==
LOC: H.OPSURG 10:08
PROVIDERS: ATTEND Anesthesiology
DX: M47.816 Spondylosis without myelopathy or radiculopathy, lumbar region (principal); M19.90 Unspecified osteoarthritis, unspecified site; E11.9 Type 2 diabetes mellitus without complications; E78.5 Hyperlipidemia, unspecified; E03.9 Hypothyroidism, unspecified; I10 Essential (primary) hypertension
CPT/HCPCS: 20552; 82948; G0260; J1040; J7120; Q9967

== ENCOUNTER 2018-09-02 13:21 | Inpatient (IN) | payer MEDICARE, MEDICAID ==
[2018-09-02 13:21] VITALS: BMI 26.5
[2018-09-02 14:46] LABS: SQUAMOUS EPITHIAL 4 /hpf (0-5); URINE BILIRUBIN NEGATIVE (NEGATIVE); URINE BLOOD NEGATIVE (NEGATIVE); URINE CLARITY CLEAR (Clear); URINE COLOR YELLOW (YELLOW); URINE GLUCOSE (UA) >=500 mg/dL (NEGATIVE); URINE LEUKOCYTE ESTERASE MOD Leu/uL (Negative); URINE PROTEIN NEGATIVE (NEGATIVE); URINE UROBILINOGEN 0.2-1.0 mg/dL (0.2-1.0)
--- NOTE | 2018-09-02 14:58 | ED PDOC ---
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 Patient visited her PMD who did not work her up or give her a diagnosis. She reports low energy levels, but does not complain of pain anywhere. Denies fever, vomiting, diarrhea and cough. PMD: Dr. Andrae Nowak Past Medical History Reviewed: Historical Data, Nursing Documentation, Vital Signs Vital Signs: Last Vital Signs Temp 98.6 F 09/02/18 13:31 Pulse 88 09/02/18 13:31 Resp 21 09/02/18 13:31 BP 150/70 09/02/18 13:45 Pulse Ox 99 09/02/18 13:31 - Medical History PMH: Anemia, Anxiety, Arthritis, Back Problems, Dementia, Depression, Diabetes, Gastritis, HTN, Hypercholesterolemia, Hypothyroidism, Rheumatoid Arthritis, Chronic Pain Denies: Chronic Kidney Disease - Surgical History Surgical History: Back Surgery (x3), Hernia Repair - Family History Family History: States: Unknown Family Hx - Social History Current smoker - smoking cessation education provided: No Alcohol: None Drugs: Denies - Home Medications Home Medications: Ambulatory Orders Medication Instructions Recorded RX: Ergocalciferol (Vitamin D2) 50,000 unit PO MO 11/04/17 [Vitamin D2] RX: Insulin Detemir [Levemir] 22 unit SC BID 11/04/17 RX: Megestrol Acetate [Megace] 10 ml PO BID 11/04/17 RX: Memantine [Namenda] 10 mg PO Q12 11/04/17 RX: Metformin HCl [Metformin ER 1,000 mg PO BID 11/04/17 Osmotic] RX: Pantoprazole Sodium [Protonix] 40 mg PO DAILY 11/04/17 RX: Gabapentin [Neurontin] 600 mg PO Q8 03/04/18 Icosapent Ethyl [Vascepa] 2 gm PO Q12 05/12/18 rOPINIRole [Requip] 1 mg PO HS 05/12/18 RX: Sertraline [Zoloft] 50 mg PO HS 09/02/18 Zolpidem [Ambien] 10 mg PO HS 09/02/18 traMADol/Acetaminophen [Ultracet 1 tab PO Q6 PRN 09/02/18 37.5/325 mg] - Allergies Allergies/Adverse Reactions: Allergies Allergy/AdvReac Type Severity Reaction Status Date / Time No Known Allergies Allergy Verified 07/24/18 10:49 Review of Systems ROS Statement: Except As Marked, All Systems Reviewed And Found Negative Constitutional: Positive for: Weakness. Negative for: Fever, Chills Respiratory: Negative for: Cough Gastrointestinal: Negative for: Vomiting, Diarrhea Physical Exam - Reviewed Nursing Documentation Reviewed: Yes Vital Signs Reviewed: Yes - Physical Exam Appears: Positive for: Non-toxic, No Acute Distress Head Exam: Positive for: ATRAUMATIC, NORMAL INSPECTION, NORMOCEPHALIC Skin: Positive for: Normal Color, Warm, Dry Eye Exam: Positive for: EOMI, Normal appearance, PERRL Neck: Positive for: Normal, Painless ROM, Supple Cardiovascular/Chest: Positive for: Regular Rate, Rhythm. Negative for: Murmur Respiratory: Positive for: Normal Breath Sounds. Negative for: Wheezing, Respiratory Distress Gastrointestinal/Abdominal: Positive for: Normal Exam, Soft. Negative for: Tenderness, Mass, Guarding, Rebound Back: Positive for: Normal Inspection. Negative for: L CVA Tenderness, R CVA Tenderness Extremity: Positive for: Normal ROM (upper and lower extremities). Negative for: Deformity, Swelling Neurologic/Psych: Positive for: Alert, Oriented (x 3). Negative for: Mo tor/Sensory Deficits - Laboratory Results Result Diagrams: 09/02/18 14:54 09/02/18 17:10 Lab Results: Urine Color Yellow (YELLOW) 09/02/18 14:27 Urine Clarity Clear (Clear) 09/02/18 14:27 Urine pH 6.0 (5.0-8.0) 09/02/18 14:27 Ur Specific [place] 1.038 (1.003-1.030) H 09/02/18 14:27 Urine Protein Negative mg/dL (NEGATIVE) 09/02/18 14:27 Urine Glucose (UA) >=500 mg/dL (NEGATIVE) 09/02/18 14:27 Urine Ketones Negative mg/dL (NEGATIVE) 09/02/18 14:27 Urine Blood Negative (NEGATIVE) 09/02/18 14:27 Urine Nitrate Negative (NEGATIVE) 09/02/18 14:27 Urine Bilirubin Negative (NEGATIVE) 09/02/18 14:27 Urine Urobilinogen 0.2-1.0 mg/dL (0.2-1.0) 09/02/18 14:27 Ur Leukocyte Esterase Mod Jalen/uL (Negative) 09/02/18 14:27 Urine Microscopic WBC 23 /hpf (0-5) H 09/02/18 14:27 Ur Squamous Epith Cells 4 /hpf (0-5) 09/02/18 14:27 - ECG O2 Sat by Pulse Oximetry: 99 (RA) Pulse Ox Interpretation: Normal Medical Decision Making Medical Decision Makin:03 Impression: generalized weakness Initial Plan: --CMP --CBC --CXR --Urine cx --UA --Head CT --NS IV 1,000 mls 16:53 Reviewed labs which reveal a urinary tract infection. Ordered Rocephin. Spoke to Dr. Nowak who suggested admission for UTI and generalized weakness. -- Scribe Attestation: Documented by Nicci Boyce acting as a scribe for Nini Castaneda MD Provider Scribe Attestation: All medical record entries made by the Scribe were at my direction and personally dictated by me. I have reviewed the chart and agree that the record accurately reflects my personal performance of the history, physical exam, medical decision making, and the department course for this patient. I have also personally directed, reviewed, and agree with the discharge instructions and disposition. Disposition - Clinical Impression Clinical Impression: UTI (urinary tract infection), Generalized weakness - Patient ED Disposition Is Patient to be Admitted: Yes Counseled Patient/Family Regarding: Studies Performed, Diagnosis - Disposition Disposition Time: 16:51 Condition: STABLE - Pt Status Changed To: Hospital Disposition Of: Inpatient - Admit Certification Admit to Inpatient:: After my assessment, the patient will require hospitalization for at least two midnights. This is because of the severity of symptoms shown, intensity of services needed, and/or the medical risk in this patient being treated as an outpatient.
[2018-09-02 15:08] LABS: BASO # 0.2 K/uL (0.0-0.2); BASO % 1.7 % (0.0-2.0); EOS # 0.2 K/uL (0.0-0.7); EOS % 1.7 % (0.0-4.0); HEMOGLOBIN 10.6 g/dL (12.0-16.0); LYMPH # 2.1 K/uL (1.0-4.3); LYMPH % 21.1 % (20.0-40.0); MEAN CELL VOLUME 79.4 fl (81.0-99.0); MEAN CORPUSCULAR HEMOGLOBIN 23.6 pg (27.0-31.0); MEAN CORPUSCULAR HGB CONC 29.7 g/dL (33.0-37.0); MONO # 0.8 K/uL (0.0-0.8); MONO % 8.3 % (0.0-10.0); NEUT # 6.7 K/uL (1.8-7.0); NEUT % 67.2 % (50.0-75.0); RBC 4.51 Mil/uL (3.80-5.20); RED CELL DISTRIBUTION WIDTH 20.2 % (11.5-14.5); WHITE BLOOD COUNT 9.9 K/uL (4.8-10.8)
[2018-09-02] MEDS ORDERED: Sodium Chloride 0.9% 1,000 ML IV STA (15:13)
--- NOTE | 2018-09-02 15:59 | CT ---
Date of service: 09/02/2018 PROCEDURE: CT HEAD WITHOUT CONTRAST. HISTORY: [email or web address] COMPARISON: Noncontrast head CT 05/31/2013. TECHNIQUE: Axial computed tomography images were obtained through the head/brain without intravenous contrast. Radiation dose: Total exam DLP = 774.93 mGy-cm. This CT exam was performed using one or more of the following dose reduction techniques: Automated exposure control, adjustment of the mA and/or kV according to patient size, and/or use of iterative reconstruction technique. FINDINGS: HEMORRHAGE: No intracranial hemorrhage. BRAIN: There is quite limited expansion of the sulcal and cisternal spaces with somewhat slightly discordant expansion of the bilateral lateral ventricles 4th ventricle and 3rd ventricle. This is a borderline pattern for local pressure hydrocephalus. No suspicious extra-axial fluid collection identified. Limited chronic angiopathy is again seen associated with periventricular white matter. No mass effect. Posterior fossa contents appear grossly nonfocal once again. VENTRICLES: Please see discussion in brain section above. CALVARIUM: Unremarkable. PARANASAL SINUSES: Unremarkable as visualized. No significant inflammatory changes. MASTOID AIR CELLS: Unremarkable as visualized. No inflammatory changes. OTHER FINDINGS: None. IMPRESSION: 1. No intracranial hemorrhage or definite mass effect appreciated. 2. Limited diffuse cerebral atrophy. Borderline pattern of normal pressure hydrocephalus in the interval versus interval central atrophy.
--- NOTE | 2018-09-02 16:14 | RAD ---
Date of service: 09/02/2018 HISTORY: weakness COMPARISON: 05/12/2018 FINDINGS: LUNGS: No active pulmonary disease. PLEURA: No significant pleural effusion identified, no pneumothorax apparent. CARDIOVASCULAR: No aortic atherosclerotic calcification present. Normal cardiac size. No pulmonary vascular congestion. OSSEOUS STRUCTURES: No significant abnormalities. VISUALIZED UPPER ABDOMEN: Normal. OTHER FINDINGS: None. IMPRESSION: No active disease.
[2018-09-02 18:02] LABS: ALB/GLOB RATIO 1.3 (1.0-2.1); ALBUMIN 4.1 g/dL (3.5-5.0); ALT/SGPT 26 U/L (9-52); AST/SGOT 20 U/L (14-36); BLOOD UREA NITROGEN 12 mg/dl (7-17); GFR NON-AFRICAN AMERICAN > 60
[2018-09-02] MEDS ORDERED: cefTRIAXone (Rocephin) 1 gm Inj ONE (18:04)
[2018-09-02] MEDS ORDERED: TRAMADOL PO PRN (21:43)
[2018-09-02] MEDS ORDERED: ACETAMINOPHEN PO PRN (21:43)
[2018-09-02] MEDS: Sodium Chloride 0.45% 1,000 ML IV SCH (22:48)
[2018-09-02] MEDS: Insulin Lispro (humaLOG) 100 Units/ml Inj SC SCH (23:00)
[2018-09-03 06:42] LABS: LDL CHOLESTEROL 127 mg/dL (0-129)
[2018-09-03 06:57] LABS: ALB/GLOB RATIO 1.3 (1.0-2.1); ALBUMIN 3.8 g/dL (3.5-5.0); ALT/SGPT 29 U/L (9-52); AST/SGOT 21 U/L (14-36); BLOOD UREA NITROGEN 9 mg/dl (7-17); CALCIUM 9.1 mg/dL (8.4-10.2); GFR NON-AFRICAN AMERICAN > 60; HDL CHOLESTEROL 43 MG/DL (30-70)
[2018-09-03 07:19] LABS: BASO # 0.1 K/uL (0.0-0.2); BASO % 0.6 % (0.0-2.0); EOS # 0.2 K/uL (0.0-0.7); EOS % 1.8 % (0.0-4.0); HEMOGLOBIN 9.9 g/dL (12.0-16.0); LYMPH # 1.8 K/uL (1.0-4.3); LYMPH % 21.4 % (20.0-40.0); MEAN CELL VOLUME 78.4 fl (81.0-99.0); MEAN CORPUSCULAR HEMOGLOBIN 24.2 pg (27.0-31.0); MEAN CORPUSCULAR HGB CONC 30.9 g/dL (33.0-37.0); MEAN PLATELET VOLUME 9.2 fl (7.2-11.7); MONO # 0.5 K/uL (0.0-0.8); MONO % 5.6 % (0.0-10.0); NEUT # 6.1 K/uL (1.8-7.0); NEUT % 70.6 % (50.0-75.0); NRBC % 0.1 % (0.0-0.0); RBC 4.07 Mil/uL (3.80-5.20); RED CELL DISTRIBUTION WIDTH 20.6 % (11.5-14.5); WHITE BLOOD COUNT 8.6 K/uL (4.8-10.8)
[2018-09-03] MEDS: Insulin Lispro (humaLOG) 100 Units/ml Inj SC SCH ×4 (08:45→22:18)
[2018-09-03] MEDS: Insulin Detemir 100 Units/ml Inj SC SCH ×2 (08:48→17:35)
[2018-09-03] MEDS: Megestrol Acetate 40 mg/ml Cup PO SCH ×2 (08:49→17:06)
[2018-09-03] MEDS: Pantoprazole 40 mg EC Tab PO SCH (08:49)
[2018-09-03] MEDS: Sodium Chloride 0.45% 1,000 ML IV SCH (09:00)
--- NOTE | 2018-09-03 10:15 | CP.PCM.CON ---
History of Present Illness - History of Present Illness History of Present Illness: consult requested for history of depression pt is a 68 year old female with a history of HTN, diabetes, high cholesterol and depression presents to the ED for evaluation on generalized weakness and fatigue for the last month, worsening recently pt on evaluation reported she has been depressed for past two years after loosing her mother , reported at current time she is retired at home with her , reported poor sleep unless she takes the ambien, reduced appetite without significant weight loss , pt denied perceptual disturbances, denied any current suicidal or homicidal ideation, no history of previous psychiatric treatment , the psychotropics she is on are being managed by her PMD Past Patient History - Past Medical History & Family History Past Medical History?: Yes - Past Social History Smoking Status: Never Smoked - CARDIAC Hx Cardiac Disorders: Yes - PULMONARY Hx Respiratory Disorders: No - NEUROLOGICAL Hx Neurological Disorder: Yes Hx Dementia: Yes - HEENT Hx HEENT Problems: Yes Hx Cataracts: Yes Other/Comment: Excision of cyst R eye - RENAL Hx Chronic Kidney Disease: No - ENDOCRINE/METABOLIC Hx Endocrine Disorders: Yes Hx Diabetes Mellitus Type 2: Yes - HEMATOLOGICAL/ONCOLOGICAL Hx Blood Disorders: Yes Hx Anemia: Yes - INTEGUMENTARY Hx Dermatological Problems: Yes Other/Comment: Excision of neuroma cherry feet, Excision of sebaceous L shoulder - MUSCULOSKELETAL/RHEUMATOLOGICAL Hx Musculoskeletal Disorders: Yes Hx Falls: No Hx Rheumatoid Arthritis: Yes - GASTROINTESTINAL Hx Gastrointestinal Disorders: Yes Hx Gastritis: Yes - GENITOURINARY/GYNECOLOGICAL Hx Genitourinary Disorders: No - PSYCHIATRIC Hx Psychophysiologic Disorder: Yes Hx Depression: Yes Hx Substance Use: No - SURGICAL HISTORY Hx Surgeries: Yes Hx Cataract Extraction: Yes (BOTH EYES) Other/Comment: Back surgery - ANESTHESIA Hx Anesthesia: Yes Hx Anesthesia Reactions: No Hx Malignant Hyperthermia: No Meds Allergies/Adverse Reactions: Allergies Allergy/AdvReac Type Severity Reaction Status Date / Time No Known Allergies Allergy Verified 07/24/18 10:49 - Medications Medications: Current Medications Acetaminophen (Tylenol 325mg Tab) 650 mg PO Q4 PRN PRN Reason: Headache Last Admin: 09/03/18 04:03 Dose: 650 mg Ergocalciferol (Drisdol 50,000 Intl Units Cap) 1 cap PO MO [facility] Home Med (Icosapent Ethyl [Vascepa]) 2 gm PO Q12 [facility] Home Med (Tramadol/Acetaminophen [Ultracet 37.5/325 Mg]) 1 tab PO Q6 PRN PRN Reason: Pain, severe (8-10) Sodium Chloride (Sodium Chloride 0.45%) 1,000 mls @ 80 mls/hr IV .[id number] [facility] Stop: 09/03/18 20:19 Last Admin: 09/02/18 22:48 Dose: 80 mls/hr Ceftriaxone Sodium 1 gm/ (Sodium Chloride) 100 mls @ 100 mls/hr IVPB DAILY [facility]; Protocol Last Admin: 09/03/18 08:50 Dose: 100 mls/hr Insulin Detemir (Levemir) 22 units SC BID [facility] Last Admin: 09/03/18 08:48 Dose: 22 units Insulin Human Lispro (Humalog) 0 units SC ACHS [facility]; Protocol Last Admin: 09/03/18 08:45 Dose: Not Given Megestrol Acetate (Megace) 400 mg PO BID [facility] Last Admin: 09/03/18 08:49 Dose: 400 mg Memantine (Namenda) 10 mg PO Q12 [facility] Last Admin: 09/03/18 08:49 Dose: 10 mg Metformin HCl (Glucophage) 1,000 mg PO BID [facility] Last Admin: 09/03/18 08:47 Dose: 1,000 mg Pantoprazole Sodium (Protonix Ec Tab) 40 mg PO DAILY [facility] Last Admin: 09/03/18 08:49 Dose: 40 mg Sertraline HCl (Zoloft) 50 mg PO [facility] Last Admin: 09/02/18 22:40 Dose: 50 mg Zolpidem Tartrate (Ambien) 5 mg PO [facility] Last Admin: 09/02/18 22:40 Dose: 5 mg Physical Exam - Psychiatric Exam Additional comments: PT SEEN IN BED, PARTIALLY COOPERATIVE, REPORTED MOOD DOWN, AFFECT CONSTRICTED , SPEECH NORMAL, THOUGHT FORM COHERENT DENIED PERCEPTUAL DISTURBANCES, NON ELICITED , DENIED SUICIDAL OR HOMIACIDAL IDEATION, ALERT AWAKE OX3, FAIR INSIGHT AND JUDGMENT Results - Vital Signs Recent Vital Signs: Last Vital Signs Temp 98 F 09/03/18 00:01 Pulse 91 H 09/03/18 00:01 Resp 18 09/03/18 00:01 BP 143/74 09/03/18 00:01 Pulse Ox 95 09/03/18 00:01 - Labs Result Diagrams: 09/03/18 05:50 09/03/18 05:50 Labs: Laboratory Results - last 24 hr 09/02/18 09/02/18 09/02/18 14:27 14:54 17:10 WBC 9.9 RBC 4.51 Hgb 10.6 L Hct 35.8 MCV 79.4 L MCH 23.6 L MCHC 29.7 L RDW 20.2 H Plt Count 293 MPV 9.0 Neut % (Auto) 67.2 Lymph % (Auto) 21.1 [place] % (Auto) 8.3 Eos % (Auto) 1.7 Baso % (Auto) 1.7 Neut # (Auto) 6.7 Lymph # (Auto) 2.1 [place] # (Auto) 0.8 Eos # (Auto) 0.2 Baso # (Auto) 0.2 Sodium 138 Potassium 3.9 Chloride 104 Carbon Dioxide 21 L Anion Gap 17 BUN 12 Creatinine 0.6 L Est GFR ( Amer) > 60 Est GFR (Non-Af Amer) > 60 POC Glucose (mg/dL) Random Glucose 185 H Calcium 9.0 Total Bilirubin 0.2 AST 20 ALT 26 Alkaline Phosphatase 119 Total Protein 7.3 Albumin 4.1 Globulin 3.2 Albumin/Globulin Ratio 1.3 Triglycerides Cholesterol LDL Cholesterol Direct HDL Cholesterol Thyroxine (T4) TSH 3rd Generation Urine Color Yellow Urine Clarity Clear Urine pH 6.0 Ur Specific [place] 1.038 H Urine Protein Negative Urine Glucose (UA) >=500 Urine Ketones Negative Urine Blood Negative Urine Nitrate Negative Urine Bilirubin Negative Urine Urobilinogen 0.2-1.0 Ur Leukocyte Esterase Mod Urine Microscopic WBC 23 H Ur Squamous Epith Cells 4 09/02/18 09/03/18 09/03/18 21:46 05:50 05:50 WBC 8.6 RBC 4.07 Hgb 9.9 L Hct 31.9 L MCV 78.4 L MCH 24.2 L MCHC 30.9 L RDW 20.6 H Plt Count 283 MPV 9.2 Neut % (Auto) 70.6 Lymph % (Auto) 21.4 [place] % (Auto) 5.6 Eos % (Auto) 1.8 Baso % (Auto) 0.6 Neut # (Auto) 6.1 Lymph # (Auto) 1.8 [place] # (Auto) 0.5 Eos # (Auto) 0.2 Baso # (Auto) 0.1 Sodium 139 Potassium 3.5 L Chloride 103 Carbon Dioxide 23 Anion Gap 17 BUN 9 Creatinine 0.5 L Est GFR ( Amer) > 60 Est GFR (Non-Af Amer) > 60 POC Glucose (mg/dL) 189 H Random Glucose 158 H Calcium 9.1 Total Bilirubin 0.3 AST 21 ALT 29 Alkaline Phosphatase 105 Total Protein 6.9 Albumin 3.8 Globulin 3.0 Albumin/Globulin Ratio 1.3 Triglycerides 182 H Cholesterol 202 H LDL Cholesterol Direct 127 HDL Cholesterol 43 Thyroxine (T4) 7.19 TSH 3rd Generation 1.99 Urine Color Urine Clarity Urine pH Ur Specific [place] Urine Protein Urine Glucose (UA) Urine Ketones Urine Blood Urine Nitrate Urine Bilirubin Urine Urobilinogen Ur Leukocyte Esterase Urine Microscopic WBC Ur Squamous Epith Cells 09/03/18 06:05 WBC RBC Hgb Hct MCV MCH MCHC RDW Plt Count MPV Neut % (Auto) Lymph % (Auto) [place] % (Auto) Eos % (Auto) Baso % (Auto) Neut # (Auto) Lymph # (Auto) [place] # (Auto) Eos # (Auto) Baso # (Auto) Sodium Potassium Chloride Carbon Dioxide Anion Gap BUN Creatinine Est GFR ( Amer) Est GFR (Non-Af Amer) POC Glucose (mg/dL) 141 H Random Glucose Calcium Total Bilirubin AST ALT Alkaline Phosphatase Total Protein Albumin Globulin Albumin/Globulin Ratio Triglycerides Cholesterol LDL Cholesterol Direct HDL Cholesterol Thyroxine (T4) TSH 3rd Generation Urine Color Urine Clarity Urine pH Ur Specific [place] Urine Protein Urine Glucose (UA) Urine Ketones Urine Blood Urine Nitrate Urine Bilirubin Urine Urobilinogen Ur Leukocyte Esterase Urine Microscopic WBC Ur Squamous Epith Cells Assessment & Plan - Assessment and Plan (Free Text) Assessment: DEPRESSION MODERATE Plan: CONTINUE WITH [facility] PT WOULD BENEFIT FROM REFERRAL TO OUTPATIENT PSYCHIATRY SERVICES FOR THERAPY AND MEDICATION MANAGEMENT
[2018-09-03 10:43] LABS: SQUAMOUS EPITHIAL 5 /hpf (0-5); URINE BACTERIA RARE (<OCC); URINE BILIRUBIN NEGATIVE (NEGATIVE); URINE BLOOD NEGATIVE (NEGATIVE); URINE CLARITY CLEAR (Clear); URINE COLOR YELLOW (YELLOW); URINE GLUCOSE (UA) >=500 mg/dL (NEGATIVE); URINE LEUKOCYTE ESTERASE SMALL Leu/uL (Negative); URINE PROTEIN NEGATIVE (NEGATIVE); URINE UROBILINOGEN 0.2-1.0 mg/dL (0.2-1.0)
[2018-09-03] MEDS ORDERED: Potassium Chloride 20 mEq ER Tab PO ONE (12:16)
--- NOTE | 2018-09-03 19:07 | US ---
Date of service: 09/03/2018 PROCEDURE: Duplex ultrasound of the bilateral lower extremity arteries. HISTORY: R/o PVD COMPARISON: None available. TECHNIQUE: Grayscale and duplex Doppler evaluation of the bilateral common femoral, superficial femoral, popliteal, posterior tibial and dorsalis pedis arteries was performed.. FINDINGS: RIGHT LOWER EXTREMITY: RIGHT COMMON FEMORAL ARTERY: Widely patent. Maximal flow velocity of 98.3 cm/s. RIGHT SUPERFICIAL FEMORAL ARTERY: Widely patent. Maximal flow velocity of 69.4 cm/s. RIGHT POPLITEAL ARTERY:Widely patent. Maximal flow velocity of 38.9 cm/s. RIGHT POSTERIOR TIBIAL ARTERY: Widely patent. Maximal flow velocity of 30.4 cm/s. RIGHT DORSALIS PEDIS ARTERY: Widely patent. Maximal flow velocity of 35.3 cm/s. LEFT LOWER EXTREMITY: LEFT COMMON FEMORAL ARTERY: Widely patent. Maximal flow velocity of 4.7 cm/s. LEFT SUPERFICIAL FEMORAL ARTERY: Widely patent. Maximal flow velocity of 72.1 cm/s. LEFT POPLITEAL ARTERY:Widely patent. Maximal flow velocity of 57.4 cm/s. LEFT POSTERIOR TIBIAL ARTERY: Widely patent. Maximal flow velocity of 52.9 cm/s. LEFT DORSALIS PEDIS ARTERY: Widely patent. Maximal flow velocity of 47.3 cm/s. OTHER FINDINGS: None. IMPRESSION: Normal Duplex Doppler of the bilateral lower extremity arteries.
--- NOTE | 2018-09-03 20:37 | CP.PCM.HP ---
History of Present Illness - History of Present Illness History of Present Illness: CC: Weakness. 68 y/o F, with multiple chronic medical conditions, including R/A, O/A, Chronic back pain with hx of back surgery x3, HTN, High-Cholesterol. Pt came to [facility] on 09/02/18 to be evaluated for neurological deficit associated to body weakness that began about one month and gradually worsening with no improvement. Worsening symptom: Fatigue, dizziness, chronic back pain. Aggravated factor: Standing/walking, ADLs. Pt denied: Fever, chills, n/v/d, abdominal pain, urinary symptoms,CP, palpitations, SOB, cough, sick contact, recent travel out of [facility]. Head CT showed: No intracranial hemorrhage or mass effect appreciated, borderline pattern for local pressure hydrocephalus . CXR: No active disease. Present on Admission - Present on Admission Any Indicators Present on Admission: No Review of Systems - Constitutional Constitutional: Weakness - EENT Eyes: Requires Corrective Lenses Ears: Other (negative) Nose/Mouth/Throat: Other (negative) - Cardiovascular Cardiovascular: Other (negative) - Respiratory Respiratory: Other (negative) - Gastrointestinal Gastrointestinal: Other (negative) - Genitourinary Genitourinary: Other (negtaive) - Musculoskeletal Musculoskeletal: Arthralgias, Back Pain (L-S), Radiating Pain into Limb - Integumentary Integumentary: Other (negative) - Neurological Neurological: Dizziness, Memory Loss (mild), Weakness, Other (restless legs at night.) - Psychiatric Psychiatric: Anxiety, Depression - Endocrine Endocrine: Other (negative) - Hematologic/Lymphatic Hematologic: Other (negtaive) Past Patient History - Past Medical History & Family History Past Medical History?: Yes Pertinent Family History: Unknown - Past Social History Smoking Status: Never Smoked Alcohol: None Drugs: Denies Home Situation {Lives}: With Family - CARDIAC Hx Cardiac Disorders: Yes Hx Hypercholesterolemia: Yes Hx Hypertension: Yes - PULMONARY Hx Respiratory Disorders: No - NEUROLOGICAL Hx Neurological Disorder: Yes Other/Comment: Mild cognitive impairement - HEENT Hx HEENT Problems: Yes Hx Cataracts: Yes Other/Comment: Excision of cyst R eye - RENAL Hx Chronic Kidney Disease: No - ENDOCRINE/METABOLIC Hx Endocrine Disorders: Yes (Diabetes Retinopathy) Hx Diabetes Mellitus Type 2: Yes Hx Hypothyroidism: Yes - HEMATOLOGICAL/ONCOLOGICAL Hx Blood Disorders: Yes Hx Anemia: Yes (B 12) - INTEGUMENTARY Hx Dermatological Problems: Yes Other/Comment: Excision of neuroma cherry feet, Excision of sebaceous L shoulder - MUSCULOSKELETAL/RHEUMATOLOGICAL Hx Musculoskeletal Disorders: Yes Hx Back Pain: Yes Hx Falls: No Hx Herniated Disk: Yes Hx Osteoarthritis: Yes Hx Rheumatoid Arthritis: Yes - GASTROINTESTINAL Hx Gastrointestinal Disorders: Yes Hx Gastritis: Yes - GENITOURINARY/GYNECOLOGICAL Hx Genitourinary Disorders: No - PSYCHIATRIC Hx Psychophysiologic Disorder: Yes Hx Anxiety: Yes Hx Depression: Yes Hx Substance Use: No - SURGICAL HISTORY Hx Surgeries: Yes Hx Cataract Extraction: Yes (BOTH EYES) Hx Orthopedic Surgery: Yes (R shoulder, R-L foot surger x 5) Other/Comment: Multiple epidural blocks. - ANESTHESIA Hx Anesthesia: Yes Hx Anesthesia Reactions: No Hx Malignant Hyperthermia: No Meds Allergies/Adverse Reactions: Allergies Allergy/AdvReac Type Severity Reaction Status Date / Time No Known Allergies Allergy Verified 07/24/18 10:49 Physical Exam - Constitutional Appears: No Acute Distress - Head Exam Head Exam: NORMAL INSPECTION - Eye Exam Eye Exam: PERRL - ENT Exam ENT Exam: Normal Exam - Neck Exam Neck exam: Positive for: Normal Inspection - Respiratory Exam Respiratory Exam: NORMAL BREATHING PATTERN - Cardiovascular Exam Cardiovascular Exam: REGULAR RHYTHM - GI/Abdominal Exam GI & Abdominal Exam: Normal Bowel Sounds, Soft - Extremities Exam Additional comments: Coldness R-L foot - Back Exam Back exam: tenderness (L-S) - Neurological Exam Neurological exam: Alert, CN II-XII Intact, Oriented x3 Additional comments: Obeys commands, generalized weakness. - Psychiatric Exam Psychiatric exam: Anxious, Depressed - Skin Skin Exam: Warm Results - Vital Signs Recent Vital Signs: Last Vital Signs Temp 97.9 F 09/03/18 18:30 Pulse 93 H 09/03/18 18:30 Resp 18 09/03/18 18:30 BP 126/60 09/03/18 18:30 Pulse Ox 98 09/03/18 18:30 reviewed [place] - Labs Result Diagrams: 09/04/18 06:21 09/04/18 06:21 Labs: Laboratory Results - last 24 hr 09/02/18 09/03/18 09/03/18 21:46 05:50 05:50 WBC 8.6 RBC 4.07 Hgb 9.9 L Hct 31.9 L MCV 78.4 L MCH 24.2 L MCHC 30.9 L RDW 20.6 H Plt Count 283 MPV 9.2 Neut % (Auto) 70.6 Lymph % (Auto) 21.4 [place] % (Auto) 5.6 Eos % (Auto) 1.8 Baso % (Auto) 0.6 Neut # (Auto) 6.1 Lymph # (Auto) 1.8 [place] # (Auto) 0.5 Eos # (Auto) 0.2 Baso # (Auto) 0.1 ESR Sodium 139 Potassium 3.5 L Chloride 103 Carbon Dioxide 23 Anion Gap 17 BUN 9 Creatinine 0.5 L Est GFR ( Amer) > 60 Est GFR (Non-Af Amer) > 60 POC Glucose (mg/dL) 189 H Random Glucose 158 H Hemoglobin A1c Calcium 9.1 Total Bilirubin 0.3 AST 21 ALT 29 Alkaline Phosphatase 105 Total Protein 6.9 Albumin 3.8 Globulin 3.0 Albumin/Globulin Ratio 1.3 Triglycerides 182 H Cholesterol 202 H LDL Cholesterol Direct 127 HDL Cholesterol 43 25-OH Vitamin D Total Thyroxine (T4) 7.19 TSH 3rd Generation 1.99 Urine Color Urine Clarity Urine pH Ur Specific [place] Urine Protein Urine Glucose (UA) Urine Ketones Urine Blood Urine Nitrate Urine Bilirubin Urine Urobilinogen Ur Leukocyte Esterase Urine RBC (Auto) Urine Microscopic WBC Ur Squamous Epith Cells Urine Bacteria 09/03/18 09/03/18 09/03/18 05:50 05:50 06:05 WBC RBC Hgb Hct MCV MCH MCHC RDW Plt Count MPV Neut % (Auto) Lymph % (Auto) [place] % (Auto) Eos % (Auto) Baso % (Auto) Neut # (Auto) Lymph # (Auto) [place] # (Auto) Eos # (Auto) Baso # (Auto) ESR Sodium Potassium Chloride Carbon Dioxide Anion Gap BUN Creatinine Est GFR ( Amer) Est GFR (Non-Af Amer) POC Glucose (mg/dL) 141 H Random Glucose Hemoglobin A1c 12.1 H Calcium Total Bilirubin AST ALT Alkaline Phosphatase Total Protein Albumin Globulin Albumin/Globulin Ratio Triglycerides Cholesterol LDL Cholesterol Direct HDL Cholesterol 25-OH Vitamin D Total 40.7 Thyroxine (T4) TSH 3rd Generation Urine Color Urine Clarity Urine pH Ur Specific [place] Urine Protein Urine Glucose (UA) Urine Ketones Urine Blood Urine Nitrate Urine Bilirubin Urine Urobilinogen Ur Leukocyte Esterase Urine RBC (Auto) Urine Microscopic WBC Ur Squamous Epith Cells Urine Bacteria 09/03/18 09/03/18 09/03/18 10:20 10:53 13:43 WBC RBC Hgb Hct MCV MCH MCHC RDW Plt Count MPV Neut % (Auto) Lymph % (Auto) [place] % (Auto) Eos % (Auto) Baso % (Auto) Neut # (Auto) Lymph # (Auto) [place] # (Auto) Eos # (Auto) Baso # (Auto) ESR 38 H Sodium Potassium Chloride Carbon Dioxide Anion Gap BUN Creatinine Est GFR ( Amer) Est GFR (Non-Af Amer) POC Glucose (mg/dL) 297 H Random Glucose Hemoglobin A1c Calcium Total Bilirubin AST ALT Alkaline Phosphatase Total Protein Albumin Globulin Albumin/Globulin Ratio Triglycerides Cholesterol LDL Cholesterol Direct HDL Cholesterol 25-OH Vitamin D Total Thyroxine (T4) TSH 3rd Generation Urine Color Yellow Urine Clarity Clear Urine pH 6.0 Ur Specific [place] 1.026 Urine Protein Negative Urine Glucose (UA) >=500 Urine Ketones Trace Urine Blood Negative Urine Nitrate Negative Urine Bilirubin Negative Urine Urobilinogen 0.2-1.0 Ur Leukocyte Esterase Small Urine RBC (Auto) 4 H Urine Microscopic WBC 4 Ur Squamous Epith Cells 5 Urine Bacteria Rare 09/03/18 15:57 WBC RBC Hgb Hct MCV MCH MCHC RDW Plt Count MPV Neut % (Auto) Lymph % (Auto) [place] % (Auto) Eos % (Auto) Baso % (Auto) Neut # (Auto) Lymph # (Auto) [place] # (Auto) Eos # (Auto) Baso # (Auto) ESR Sodium Potassium Chloride Carbon Dioxide Anion Gap BUN Creatinine Est GFR ( Amer) Est GFR (Non-Af Amer) POC Glucose (mg/dL) 216 H Random Glucose Hemoglobin A1c Calcium Total Bilirubin AST ALT Alkaline Phosphatase Total Protein Albumin Globulin Albumin/Globulin Ratio Triglycerides Cholesterol LDL Cholesterol Direct HDL Cholesterol 25-OH Vitamin D Total Thyroxine (T4) TSH 3rd Generation Urine Color Urine Clarity Urine pH Ur Specific [place] Urine Protein Urine Glucose (UA) Urine Ketones Urine Blood Urine Nitrate Urine Bilirubin Urine Urobilinogen Ur Leukocyte Esterase Urine RBC (Auto) Urine Microscopic WBC Ur Squamous Epith Cells Urine Bacteria reviewed J.P. - Imaging and Cardiology CT scan - head Status: Report reviewed by me (JManfredP.) Chest x-ray Status: Report reviewed by me (JManfredP.) Assessment & Plan (1) Generalized weakness Status: Acute Priority: High (2) Chronic back pain Status: Chronic Priority: High (3) History of lumbar laminectomy Status: Chronic Priority: High (4) Radiculopathy of lumbar region Status: Chronic Priority: Medium (5) Hyperglycemia due to type 2 diabetes mellitus Status: Acute Priority: High (6) Diabetic neuropathy Status: Chronic Priority: Medium (7) Diabetes mellitus Status: Chronic Priority: High (8) Mild cognitive impairment Status: Chronic Priority: Low (9) Depression Status: Acute (10) Anemia, B12 deficiency Status: Chronic Priority: Medium (11) Hypercholesterolemia Status: Chronic Priority: Medium (12) History of restless legs syndrome Status: Acute - Assessment and Plan (Free Text) Plan: F/U Blood C-S, U C-S, Lower Ext U-S, Continue Rocephin, Tramadol, Namenda, Zoloft, Insulin and rest of Tx. Psychic consult appreciated. Neurology and Pain Management consult. - Date & Time Date: 09/03/18 Time: 13:00
[2018-09-04 06:34] LABS: HEMOGLOBIN 10.1 g/dL (12.0-16.0); MEAN CELL VOLUME 79.7 fl (81.0-99.0); MEAN CORPUSCULAR HEMOGLOBIN 24.1 pg (27.0-31.0); MEAN CORPUSCULAR HGB CONC 30.2 g/dL (33.0-37.0); RBC 4.18 Mil/uL (3.80-5.20); RED CELL DISTRIBUTION WIDTH 20.6 % (11.5-14.5)
[2018-09-04 06:41] LABS: BLOOD UREA NITROGEN 10 mg/dl (7-17); CALCIUM 9.8 mg/dL (8.4-10.2); GFR NON-AFRICAN AMERICAN > 60
[2018-09-04] MEDS ORDERED: Midazolam 2 MG/2 ML VIAL ONE (08:01)
[2018-09-04] MEDS ORDERED: Lactated Ringer's 1,000 ML IV ONE (08:10)
[2018-09-04] MEDS: MethylPREDNISolone Depo 40 mg/ml Inj ONE ×2 (08:20→08:37)
[2018-09-04] MEDS: Bupivacaine HCl 0.5% PF (30 ml) Inj ONE ×2 (08:20→08:37)
[2018-09-04] MEDS: Lidocaine 2% Inj (20ml) ONE ×2 (08:20→08:37)
[2018-09-04] MEDS ORDERED: HYDROmorphone 0.5 mg/0.5 ml ISec IVP PRN (08:46)
[2018-09-04] MEDS: Insulin Lispro (humaLOG) 100 Units/ml Inj SC SCH ×4 (09:20→22:00)
[2018-09-04] MEDS: Insulin Detemir 100 Units/ml Inj SC SCH ×2 (09:21→17:26)
[2018-09-04] MEDS: Megestrol Acetate 40 mg/ml Cup PO SCH ×3 (09:21→17:27)
[2018-09-04] MEDS: Pantoprazole 40 mg EC Tab PO SCH ×2 (09:22→11:43)
[2018-09-04] MEDS: Lactated Ringer's 1,000 ML IV SCH ×2 (11:34→18:00)
--- NOTE | 2018-09-04 12:44 | CP.PCM.PN ---
Subjective - Date & Time of Evaluation Date of Evaluation: 09/04/18 Time of Evaluation: 09:00 - Subjective Subjective: Patient is s/p right sacral nerve radiofrequency for sacroiliits + failed back syndrome. This is a procedure she was originally scheduled for prior to her admissions. Objective - Vital Signs/Intake and Output Vital Signs (last 24 hours): Temp Pulse Resp BP Pulse Ox 97.7 F 83 18 134/65 96 09/04/18 10:05 09/04/18 10:05 09/04/18 10:05 09/04/18 10:05 09/04/18 10:05 Intake and Output: 09/04/18 09/04/18 06:59 18:59 Intake Total 200 Balance 200 - Medications Medications: Current Medications Acetaminophen (Tylenol 325mg Tab) 650 mg PO Q4 PRN PRN Reason: Headache Last Admin: 09/03/18 04:03 Dose: 650 mg Ergocalciferol (Drisdol 50,000 Intl Units Cap) 1 cap PO MO [facility] Home Med (Icosapent Ethyl [Vascepa]) 2 gm PO Q12 [facility] Home Med (Tramadol/Acetaminophen [Ultracet 37.5/325 Mg]) 1 tab PO Q6 PRN PRN Reason: Pain, severe (8-10) Hydromorphone HCl (Dilaudid) 0.5 mg IVP Q10M PRN PRN Reason: Pain, moderate (4-7) Ceftriaxone Sodium 1 gm/ (Sodium Chloride) 100 mls @ 100 mls/hr IVPB DAILY [facility]; Protocol Last Admin: 09/04/18 11:36 Dose: 100 mls/hr Lactated Ringer's (Lactated Ringer's) 1,000 mls @ 125 mls/hr IV .Q8H [facility] Last Admin: 09/04/18 11:34 Dose: 125 mls/hr Insulin Detemir (Levemir) 22 units SC BID [facility] Last Admin: 09/04/18 09:21 Dose: Not Given Insulin Human Lispro (Humalog) 0 units SC ACHS [facility]; Protocol Last Admin: 09/04/18 09:20 Dose: Not Given Megestrol Acetate (Megace) 400 mg PO BID [facility] Last Admin: 09/04/18 11:43 Dose: 400 mg Memantine (Namenda) 10 mg PO Q12 [facility] Last Admin: 09/04/18 11:43 Dose: 10 mg Metformin HCl (Glucophage) 1,000 mg PO BID [facility] Last Admin: 09/04/18 11:46 Dose: 1,000 mg Pantoprazole Sodium (Protonix Ec Tab) 40 mg PO DAILY [facility] Last Admin: 09/04/18 11:43 Dose: 40 mg Sertraline HCl (Zoloft) 50 mg PO HS [facility] Last Admin: 09/03/18 22:11 Dose: 50 mg Zolpidem Tartrate (Ambien) 5 mg PO HS [facility] Last Admin: 09/03/18 22:17 Dose: 5 mg - Labs Labs: 09/04/18 06:21 09/04/18 06:21 - Back Exam Back Exam: paraspinal tenderness, vertebral tenderness Assessment and Plan - Assessment and Plan (Free Text) Assessment: 68 yo woman w/ failed back syndrome. Due to her pain, the opioid dosage was increased recently, perhaps that has caused her recent lethargic state. She's s/p right sacral nerve radiofrequency. There are no acute issues with pain management, she may be discharged with outpatient follow-up. - dispo per primary
--- NOTE | 2018-09-04 14:55 | CP.PCM.PN ---
Subjective - Date & Time of Evaluation Date of Evaluation: 09/04/18 Time of Evaluation: 14:40 - Subjective Subjective: Generalized Weakness, Chronic low back pain. s/p right sacral nerve radiofrequency with great improvement of LS pain, generalized weakness improved Objective - Vital Signs/Intake and Output Vital Signs (last 24 hours): Temp Pulse Resp BP Pulse Ox 97.7 F 83 18 134/65 96 09/04/18 10:05 09/04/18 10:05 09/04/18 10:05 09/04/18 10:05 09/04/18 10:05 Intake and Output: 09/04/18 09/04/18 06:59 18:59 Intake Total 200 Balance 200 - Medications Medications: Current Medications Acetaminophen (Tylenol 325mg Tab) 650 mg PO Q4 PRN PRN Reason: Headache Last Admin: 09/03/18 04:03 Dose: 650 mg Ergocalciferol (Drisdol 50,000 Intl Units Cap) 1 cap PO MO [facility] Home Med (Icosapent Ethyl [Vascepa]) 2 gm PO Q12 [facility] Home Med (Tramadol/Acetaminophen [Ultracet 37.5/325 Mg]) 1 tab PO Q6 PRN PRN Reason: Pain, severe (8-10) Hydromorphone HCl (Dilaudid) 0.5 mg IVP Q10M PRN PRN Reason: Pain, moderate (4-7) Ceftriaxone Sodium 1 gm/ (Sodium Chloride) 100 mls @ 100 mls/hr IVPB DAILY [facility]; Protocol Last Admin: 09/04/18 11:36 Dose: 100 mls/hr Lactated Ringer's (Lactated Ringer's) 1,000 mls @ 125 mls/hr IV .Q8H [facility] Last Admin: 09/04/18 11:34 Dose: 125 mls/hr Insulin Detemir (Levemir) 22 units SC BID [facility] Last Admin: 09/04/18 09:21 Dose: Not Given Insulin Human Lispro (Humalog) 0 units SC ACHS [facility]; Protocol Last Admin: 09/04/18 13:09 Dose: 1 units Megestrol Acetate (Megace) 400 mg PO BID [facility] Last Admin: 09/04/18 11:43 Dose: 400 mg Memantine (Namenda) 10 mg PO Q12 [facility] Last Admin: 02/22/19 11:43 Dose: 10 mg Metformin HCl (Glucophage) 1,000 mg PO BID [facility] Last Admin: 09/04/18 11:46 Dose: 1,000 mg Pantoprazole Sodium (Protonix Ec Tab) 40 mg PO DAILY [facility] Last Admin: 09/04/18 11:43 Dose: 40 mg Sertraline HCl (Zoloft) 50 mg PO [facility] Last Admin: 09/03/18 22:11 Dose: 50 mg Zolpidem Tartrate (Ambien) 5 mg PO [facility] Last Admin: 09/03/18 22:17 Dose: 5 mg - Labs Labs: 09/04/18 06:21 09/04/18 06:21 - Constitutional Appears: No Acute Distress - Head Exam Head Exam: NORMAL INSPECTION - Eye Exam Eye Exam: PERRL - ENT Exam ENT Exam: Normal Exam - Neck Exam Neck Exam: Normal Inspection - Respiratory Exam Respiratory Exam: Clear to Ausculation Bilateral - Cardiovascular Exam Cardiovascular Exam: REGULAR RHYTHM - GI/Abdominal Exam GI & Abdominal Exam: Soft, Normal Bowel Sounds - Extremities Exam Additional comments: mild coldness R L feet - Back Exam Back Exam: tenderness - Neurological Exam Neurological Exam: Alert, Oriented x3 Additional comments: generalized weakness, no focal motor deficit - Psychiatric Exam Psychiatric exam: Anxious - Skin Skin Exam: Warm Assessment and Plan (1) Generalized weakness Status: Acute (2) Chronic back pain Status: Chronic (3) History of lumbar laminectomy Status: Chronic (4) Radiculopathy of lumbar region Status: Chronic (5) Hyperglycemia due to type 2 diabetes mellitus Status: Acute (6) Diabetic neuropathy Status: Chronic (7) Diabetes mellitus Status: Chronic (8) Mild cognitive impairment Status: Chronic (9) Depression Status: Acute (10) Anemia, B12 deficiency Status: Chronic (11) Hypercholesterolemia Status: Chronic (12) History of restless legs syndrome Status: Chronic - Assessment and Plan (Free Text) Plan: CT Head limited diffuse cerebral atrophy, borderline pattern of normal pressure hydrocephalus, f/u Neurology and Neurosurgical consult
--- NOTE | 2018-09-04 15:50 | RAD ---
Date of service: 09/04/2018 PROCEDURE: Fluoroscopy up to 1 hr.. HISTORY: PAIN MANAGEMENT COMPARISON: None TECHNIQUE: Standard protocol for this study/examination. FINDINGS: Total fluoroscopic time (continuous mode) utilized during the procedure 38.9 seconds. Total exam DLP: 12.80 (mGy). IMPRESSION: Less than 1 hr fluoroscopic assistance provided during performance of the procedure. .
--- NOTE | 2018-09-04 16:09 | CP.PCM.CON ---
History of Present Illness - History of Present Illness History of Present Illness: Neurology consult dictated. Patent has resolved dizziness, will monitor. Thank you Dr. Thomas Past Patient History - Past Medical History & Family History Past Medical History?: Yes - Past Social History Smoking Status: Never Smoked Alcohol: None Drugs: Denies Home Situation {Lives}: With Family - CARDIAC Hx Cardiac Disorders: Yes Hx Hypercholesterolemia: Yes Hx Hypertension: Yes - PULMONARY Hx Respiratory Disorders: No - NEUROLOGICAL Hx Neurological Disorder: Yes Other/Comment: Mild cognitive impairement - HEENT Hx HEENT Problems: Yes Hx Cataracts: Yes Other/Comment: Excision of cyst R eye - RENAL Hx Chronic Kidney Disease: No - ENDOCRINE/METABOLIC Hx Endocrine Disorders: Yes (Diabetes Retinopathy) Hx Diabetes Mellitus Type 2: Yes Hx Hypothyroidism: Yes - HEMATOLOGICAL/ONCOLOGICAL Hx Blood Disorders: Yes Hx Anemia: Yes (B 12) - INTEGUMENTARY Hx Dermatological Problems: Yes Other/Comment: Excision of neuroma cherry feet, Excision of sebaceous L shoulder - MUSCULOSKELETAL/RHEUMATOLOGICAL Hx Musculoskeletal Disorders: Yes Hx Back Pain: Yes Hx Falls: No Hx Herniated Disk: Yes Hx Osteoarthritis: Yes Hx Rheumatoid Arthritis: Yes - GASTROINTESTINAL Hx Gastrointestinal Disorders: Yes Hx Gastritis: Yes - GENITOURINARY/GYNECOLOGICAL Hx Genitourinary Disorders: No - PSYCHIATRIC Hx Psychophysiologic Disorder: Yes Hx Anxiety: Yes Hx Depression: Yes Hx Substance Use: No - SURGICAL HISTORY Hx Surgeries: Yes Hx Cataract Extraction: Yes (BOTH EYES) Hx Orthopedic Surgery: Yes (R shoulder, R-L foot surger x 5) Other/Comment: Multiple epidural blocks. - ANESTHESIA Hx Anesthesia: Yes Hx Anesthesia Reactions: No Hx Malignant Hyperthermia: No Meds Allergies/Adverse Reactions: Allergies Allergy/AdvReac Type Severity Reaction Status Date / Time No Known Allergies Allergy Verified 07/24/18 10:49 - Medications Medications: Current Medications Acetaminophen (Tylenol 325mg Tab) 650 mg PO Q4 PRN PRN Reason: Headache Last Admin: 09/03/18 04:03 Dose: 650 mg Ergocalciferol (Drisdol 50,000 Intl Units Cap) 1 cap PO [facility] Home Med (Icosapent Ethyl [Vascepa]) 2 gm PO Q12 [facility] Home Med (Tramadol/Acetaminophen [Ultracet 37.5/325 Mg]) 1 tab PO Q6 PRN PRN Reason: Pain, severe (8-10) Hydromorphone HCl (Dilaudid) 0.5 mg IVP Q10M PRN PRN Reason: Pain, moderate (4-7) Ceftriaxone Sodium 1 gm/ (Sodium Chloride) 100 mls @ 100 mls/hr IVPB DAILY [facility]; Protocol Last Admin: 09/04/18 11:36 Dose: 100 mls/hr Lactated Ringer's (Lactated Ringer's) 1,000 mls @ 125 mls/hr IV .Q8H [facility] Last Admin: 09/04/18 11:34 Dose: 125 mls/hr Insulin Detemir (Levemir) 22 units SC BID [facility] Last Admin: 09/04/18 09:21 Dose: Not Given Insulin Human Lispro (Humalog) 0 units SC ACHS [facility]; Protocol Last Admin: 09/04/18 13:09 Dose: 1 units Megestrol Acetate (Megace) 400 mg PO BID [facility] Last Admin: 09/04/18 11:43 Dose: 400 mg Memantine (Namenda) 10 mg PO Q12 [facility] Last Admin: 09/04/18 11:43 Dose: 10 mg Metformin HCl (Glucophage) 1,000 mg PO BID [facility] Last Admin: 09/04/18 11:46 Dose: 1,000 mg Pantoprazole Sodium (Protonix Ec Tab) 40 mg PO DAILY [facility] Last Admin: 09/04/18 11:43 Dose: 40 mg Sertraline HCl (Zoloft) 50 mg PO [facility] Last Admin: 09/03/18 22:11 Dose: 50 mg Zolpidem Tartrate (Ambien) 5 mg PO [facility] Last Admin: 09/03/18 22:17 Dose: 5 mg Results - Vital Signs Recent Vital Signs: Last Vital Signs Temp 97.7 F 09/04/18 10:05 Pulse 83 09/04/18 10:05 Resp 18 09/04/18 10:05 BP 134/65 09/04/18 10:05 Pulse Ox 96 09/04/18 10:05 - Labs Result Diagrams: 09/04/18 06:21 09/04/18 06:21 Labs: Laboratory Results - last 24 hr 09/03/18 09/03/18 09/03/18 13:43 15:57 21:56 WBC RBC Hgb Hct MCV MCH MCHC RDW Plt Count Sodium Potassium Chloride Carbon Dioxide Anion Gap BUN Creatinine Est GFR ( Amer) Est GFR (Non-Af Amer) POC Glucose (mg/dL) 216 H 255 H Random Glucose Calcium Scl-70 Antibody <1.0 Scl-70 Interpretation Negative 09/04/18 09/04/18 09/04/18 05:19 06:21 06:21 WBC 9.0 RBC 4.18 Hgb 10.1 L Hct 33.3 L MCV 79.7 L MCH 24.1 L MCHC 30.2 L RDW 20.6 H Plt Count 285 Sodium 142 Potassium 3.9 Chloride 103 Carbon Dioxide 23 Anion Gap 20 BUN 10 Creatinine 0.5 L Est GFR ( Amer) > 60 Est GFR (Non-Af Amer) > 60 POC Glucose (mg/dL) 156 H Random Glucose 167 H Calcium 9.8 Scl-70 Antibody Scl-70 Interpretation 09/04/18 09/04/18 08:50 11:10 WBC RBC Hgb Hct MCV MCH MCHC RDW Plt Count Sodium Potassium Chloride Carbon Dioxide Anion Gap BUN Creatinine Est GFR ( Amer) Est GFR (Non-Af Amer) POC Glucose (mg/dL) 159 H 167 H Random Glucose Calcium Scl-70 Antibody Scl-70 Interpretation
[2018-09-04 16:20] VITALS: RESP 20
--- NOTE | 2018-09-04 19:49 | OP ---
PROCEDURE DATE: 09/03/2018 PREOPERATIVE DIAGNOSIS: Failed back syndrome. POSTOPERATIVE DIAGNOSIS: Failed back syndrome. PROCEDURE: Right sacral nerve radiofrequency. SURGEON: Hailey Ramirez MD TYPE OF ANESTHESIA: Monitored anesthesia care. ANESTHESIOLOGIST: Tova Yeboah MD COMPLICATIONS: None. SPECIMEN: None. DESCRIPTION OF PROCEDURE: Procedure is as follows: After we had discussion of the procedure with the patient including its risks, benefits, alternatives, outcome data, possibility of no effect or increased pain, the patient consented to the procedure. She denied any recent infection, bleeding tendencies, or being on anticoagulants and a decision was then made to proceed to the OR. The patient was placed on a fluoroscopy table in a prone position with two pillows underneath her abdomen. She was then grounded to the radiofrequency machine. The right sacroiliac joint was first visualized on the anteroposterior view. The targets are at the medial border of the sacroiliac joint. The anterior opening and the posterior opening were lined up by turning the fluoroscopy towards the contralateral oblique at approximately 10 degrees. The skin overlying the targets was then infiltrated with 1% lidocaine using 25 gauge needle. Then, a 22-gauge 3.5-inch Stimuplex needle was then incrementally advanced under fluoroscopic guidance until tip of the needle made bony contact at the most inferior border medial to the right sacroiliac joint. Then, six other Stimuplex needles were then placed superior at 5 mm increments. The last needle was placed at the top of the sacroiliac joint. After appropriate placement of all seven needles, the field was then infiltrated with 1% Xylocaine. Radiofrequency probe was then placed in the first and the second, also the fourth and the fifth needles. Radiofrequency was then carried out at 80 degrees Celsius for approximately 2 minutes. The probe was then switched to the second and third and fifth and sixth. Same radiofrequency was carried out for the same interval. Lastly, the probe was moved to the third and fourth and six and the seventh needle and the same radiofrequency was carried out. At the end of the procedure, each nerve was treated with a combination of 0.5% Marcaine and Depo-Medrol. At the end of the case, the patient's back was cleaned and dry bandage was applied. The patient was then transferred to the recovery area in good condition without any signs of [employer] toxicity or any neurological deficit. She will be following up in our office in approximately two to four weeks. Dominic-Fabiano Ramirez MD
[2018-09-05] MEDS: Lactated Ringer's 1,000 ML IV SCH ×2 (01:00→10:24)
[2018-09-05] MEDS: Insulin Lispro (humaLOG) 100 Units/ml Inj SC SCH ×2 (10:14→13:31)
[2018-09-05] MEDS: Pantoprazole 40 mg EC Tab PO SCH (10:15)
[2018-09-05] MEDS: Megestrol Acetate 40 mg/ml Cup PO SCH (10:15)
[2018-09-05] MEDS: Insulin Detemir 100 Units/ml Inj SC SCH (10:17)
--- NOTE | 2018-09-05 15:43 | CP.PCM.DIS ---
Provider - Provider Date of Admission: 09/02/18 16:41 Attending physician: Andrae Nowak MD Consults: 09/02/18 20:19 Neurology Consult Routine Comment: Consulting Provider: Wilder Thomas Consulting Physician: Wilder Thomas Reason for Consult: generalized weakness Psychiatry Consult Routine Comment: Consulting Provider: Robert Cobian Consulting Physician: Robert Cobian Reason for Consult: evaluation of psych meds; generalized weakness 09/02/18 20:23 Anesthesiology Consult Routine Comment: Consulting Provider: Hailey Ramirez Consulting Physician: Hailey Ramirez Reason for Consult: pain management 09/04/18 14:43 Neuro Surgery Consult Routine Comment: Consulting Provider: Alden Parra Consulting Physician: Alden Parra Reason for Consult: borderline nph on CT head, weakness Diagnosis - Discharge Diagnosis (1) Generalized weakness Status: Acute Priority: High (2) Chronic back pain Status: Chronic Priority: High (3) History of lumbar laminectomy Status: Chronic Priority: High (4) Radiculopathy of lumbar region Status: Chronic Priority: Medium (5) Hyperglycemia due to type 2 diabetes mellitus Status: Acute Priority: High (6) Diabetic neuropathy Status: Chronic Priority: Medium (7) Diabetes mellitus Status: Chronic Priority: High (8) Mild cognitive impairment Status: Chronic Priority: Low (9) Depression Status: Acute (10) Anemia, B12 deficiency Status: Chronic Priority: Medium (11) Hypercholesterolemia Status: Chronic Priority: Medium (12) History of restless legs syndrome Status: Chronic Hospital Course - Lab Results Lab Results: Micro Results 09/02/18 15:30 Blood-Venous Blood Culture - Preliminary NO GROWTH AFTER 48 HOURS 09/02/18 17:00 Blood-Venous Blood Culture - Preliminary NO GROWTH AFTER 48 HOURS 09/02/18 14:27 Urine Random Urine Culture - Final 10-50,000 CFU/ML. MULTIPLE SPECIES. PROBABLE CONTAMINATION. Most Recent Lab Values WBC 9.0 K/uL (4.8-10.8) 09/04/18 06:21 RBC 4.18 Mil/uL (3.80-5.20) 09/04/18 06:21 Hgb 10.1 g/dL (12.0-16.0) L 09/04/18 06:21 Hct 33.3 % (34.0-47.0) L 09/04/18 06:21 MCV 79.7 fl (81.0-99.0) L 09/04/18 06:21 MCH 24.1 pg (27.0-31.0) L 09/04/18 06:21 MCHC 30.2 g/dL (33.0-37.0) L 09/04/18 06:21 RDW 20.6 % (11.5-14.5) H 09/04/18 06:21 Plt Count 285 K/uL (130-400) 09/04/18 06:21 MPV 9.2 fl (7.2-11.7) 09/03/18 05:50 Neut % (Auto) 70.6 % (50.0-75.0) 09/03/18 05:50 Lymph % (Auto) 21.4 % (20.0-40.0) 09/03/18 05:50 Avery % (Auto) 5.6 % (0.0-10.0) 09/03/18 05:50 Eos % (Auto) 1.8 % (0.0-4.0) 09/03/18 05:50 Baso % (Auto) 0.6 % (0.0-2.0) 09/03/18 05:50 Neut # (Auto) 6.1 K/uL (1.8-7.0) 09/03/18 05:50 Lymph # (Auto) 1.8 K/uL (1.0-4.3) 09/03/18 05:50 Avery # (Auto) 0.5 K/uL (0.0-0.8) 09/03/18 05:50 Eos # (Auto) 0.2 K/uL (0.0-0.7) 09/03/18 05:50 Baso # (Auto) 0.1 K/uL (0.0-0.2) 09/03/18 05:50 ESR 38 mm/hr (0-30) H 09/03/18 13:43 Sodium 142 mmol/l (132-148) 09/04/18 06:21 Potassium 3.9 MMOL/L (3.6-5.0) 09/04/18 06:21 Chloride 103 mmol/L (98-107) 09/04/18 06:21 Carbon Dioxide 23 mmol/L (22-30) 09/04/18 06:21 Anion Gap 20 (10-20) 09/04/18 06:21 BUN 10 mg/dl (7-17) 09/04/18 06:21 Creatinine 0.5 mg/dl (0.7-1.2) L 09/04/18 06:21 Est GFR ( Amer) > 60 09/04/18 06:21 Est GFR (Non-Af Amer) > 60 09/04/18 06:21 POC Glucose (mg/dL) 242 mg/dL (65-110) H 09/05/18 15:33 Random Glucose 167 mg/dL (65-105) H 09/04/18 06:21 Hemoglobin A1c 12.1 % (4.2-6.5) H 09/03/18 05:50 Calcium 9.8 mg/dL (8.4-10.2) 09/04/18 06:21 Total Bilirubin 0.3 mg/dl (0.2-1.3) 09/03/18 05:50 AST 21 U/L (14-36) 09/03/18 05:50 ALT 29 U/L (9-52) 09/03/18 05:50 Alkaline Phosphatase 105 U/L (38-126) 09/03/18 05:50 Total Protein 6.9 G/DL (6.3-8.2) 09/03/18 05:50 Albumin 3.8 g/dL (3.5-5.0) 09/03/18 05:50 Globulin 3.0 gm/dL (2.2-3.9) 09/03/18 05:50 Albumin/Globulin Ratio 1.3 (1.0-2.1) 09/03/18 05:50 Triglycerides 182 mg/DL (0-149) H 09/03/18 05:50 Cholesterol 202 mg/dL (0-199) H 09/03/18 05:50 LDL Cholesterol Direct 127 mg/dL (0-129) 09/03/18 05:50 HDL Cholesterol 43 MG/DL (30-70) 09/03/18 05:50 25-OH Vitamin D Total 40.7 NG/ML (30.0-100.0) 09/03/18 05:50 Thyroxine (T4) 7.19 ug/dl (5.5-11.0) 09/03/18 05:50 TSH 3rd Generation 1.99 mIU/ML (0.46-4.68) 09/03/18 05:50 Urine Color Yellow (YELLOW) 09/03/18 10:20 Urine Clarity Clear (Clear) 09/03/18 10:20 Urine pH 6.0 (5.0-8.0) 09/03/18 10:20 Ur Specific Lindsay 1.026 (1.003-1.030) 09/03/18 10:20 Urine Protein Negative mg/dL (NEGATIVE) 09/03/18 10:20 Urine Glucose (UA) >=500 mg/dL (NEGATIVE) 09/03/18 10:20 Urine Ketones Trace mg/dL (NEGATIVE) 09/03/18 10:20 Urine Blood Negative (NEGATIVE) 09/03/18 10:20 Urine Nitrate Negative (NEGATIVE) 09/03/18 10:20 Urine Bilirubin Negative (NEGATIVE) 09/03/18 10:20 Urine Urobilinogen 0.2-1.0 mg/dL (0.2-1.0) 09/03/18 10:20 Ur Leukocyte Esterase Small Jalen/uL (Negative) 09/03/18 10:20 Urine RBC (Auto) 4 /hpf (0-3) H 09/03/18 10:20 Urine Microscopic WBC 4 /hpf (0-5) 09/03/18 10:20 Ur Squamous Epith Cells 5 /hpf (0-5) 09/03/18 10:20 Urine Bacteria Rare (<OCC) 09/03/18 10:20 Urine Creatinine 47 mg/dL (20-275) 09/02/18 16:41 Urine Microalbumin 0.3 mg/dL 09/02/18 16:41 Microalb/Creat Ratio 7 (<30) 09/02/18 16:41 SUYAPA Screen Negative (Negative) 09/03/18 13:43 Scl-70 Antibody <1.0 AI (<1.0) 09/03/18 13:43 Scl-70 Interpretation Negative (Negative) 09/03/18 13:43 Discharge Exam - Head Exam Head Exam: NORMAL INSPECTION Discharge Plan - Follow Up Plan Condition: STABLE Disposition: HOME/ ROUTINE Instructions: Weakness (ED) Referrals: Robert Cobian MD [Medical Doctor] - Hailey Ramirez MD [Staff Provider] - Wilder Thomas MD [Medical Doctor] -
[2018-09-05 16:19] VITALS: BP 126/72; PULSE 90; TEMP 97.5; O2SAT 95
[2018-09-07] MEDS ORDERED: Ergocalciferol 50,000 Intl Units Cap PO SCH (20:27)
== END 2018-09-05 16:36 | disposition home health service (06) | DRG 552 ==
LOC: H.ER 13:21 → H.ERHOLD 16:41 → H.MEDSURG1 18:50
PROVIDERS: ADMIT Internal Medicine Pulmonary Disease; ATTEND Internal Medicine Pulmonary Disease
PROC: 015R3ZZ Destruction of Sacral Nerve, Percutaneous Approach (ICD-10-PCS; principal; 2018-09-04 13:45)
DX: M54.16 Radiculopathy, lumbar region (principal); N39.0 Urinary tract infection, site not specified; F41.9 Anxiety disorder, unspecified; H26.9 Unspecified cataract; K29.70 Gastritis, unspecified, without bleeding; M19.90 Unspecified osteoarthritis, unspecified site; D51.9 Vitamin B12 deficiency anemia, unspecified; E03.9 Hypothyroidism, unspecified; E11.319 Type 2 diabetes mellitus with unspecified diabetic retinopathy without macular edema; E11.40 Type 2 diabetes mellitus with diabetic neuropathy, unspecified; E11.65 Type 2 diabetes mellitus with hyperglycemia; E78.00 Pure hypercholesterolemia, unspecified; F03.90 Unspecified dementia, unspecified severity, without behavioral disturbance, psychotic disturbance, mood disturbance, and anxiety; F32.9 Major depressive disorder, single episode, unspecified; G25.81 Restless legs syndrome; G89.29 Other chronic pain; I10 Essential (primary) hypertension; M06.9 Rheumatoid arthritis, unspecified

== ENCOUNTER 2018-09-15 07:43 | Inpatient (IN) | payer MEDICARE, OTHER ==
[2018-09-15 07:47] VITALS: BMI 29.2
--- NOTE | 2018-09-15 08:10 | ED PDOC ---
HPI: Neurologic - General Time Seen by Provider: 09/15/18 07:50 Chief Complaint (Nursing): Weakness/Neurological Deficit Chief Complaint (Provider): Weakness/Neurological Deficit Source: health promotion officer ([id number]) Exam Limitations: no limitations - History of Present Illness Timing/Duration: other (over the past month ) Associated Symptoms: fatigue, weakness (generalized; (-) localized weakness ). denies: numbness in legs/feet Allergies/Adverse Reactions: Allergies No Known Allergies Allergy (Verified 09/15/18 07:55) Home Medications: Ambulatory Orders Ergocalciferol (Vitamin D2) [Vitamin D2] 50,000 unit PO MO 11/04/17 Insulin Detemir [Levemir] 22 unit SC BID 11/04/17 Megestrol Acetate [Megace] 10 ml PO BID 11/04/17 Memantine [Namenda] 10 mg PO Q12 11/04/17 Metformin HCl [Metformin ER Osmotic] 1,000 mg PO BID 11/04/17 Pantoprazole Sodium [Protonix] 40 mg PO DAILY 11/04/17 Gabapentin [Neurontin] 600 mg PO Q8 03/04/18 Icosapent Ethyl [Vascepa] 2 gm PO Q12 05/12/18 rOPINIRole [Requip] 1 mg PO HS 05/12/18 Sertraline [Zoloft] 50 mg PO HS 09/02/18 Zolpidem [Ambien] 10 mg PO HS 09/02/18 traMADol/Acetaminophen [Ultracet 37.5/325 mg] 1 tab PO Q6 PRN 09/02/18 Additional Complaint(s): Zahira Escamilla is a 68 year old female with a past medical history of chronic back pain, HTN, diabetes and dementia. She presents to the emergency department complaining of generalized weakness associated with right sided chest pain and intermittent dysuria, ongoing for the past month. Patient states that she was admitted on September 02, 2018 for the same symptoms and reports feeling better upon discharged. However, patient returns to ED today with similar symptoms. Patient denies having any shortness of breath, headache, heamturia, focal weakness or numbness/tingling. PMD: Andrae Nowak NIHSS Stroke Scale - Date/Time Evaluation Performed Date Performed: 09/15/18 Time Performed: 08:00 - How Severe is the Stroke Level of Consciousness: 0=Alert LOC to Questions: 0=Both comments correct LOC to commands: 0=Obeys both correctly Best Gaze: 0=Normal Visual: 0=No visual loss Facial: 0=Normal Motor Arm - Left: 0=No drift Motor Arm - Right: 0=No drift Motor Leg - Left: 0=No drift Motor Leg - Right: 0=No drift Limb Ataxia: 0=Absent Sensory: 0=Normal Best Language: 0=No aphasia Dysarthia: 0=Normal articulation Extinction & Inattention (Neglect): 0=Normal, no object Score: 0 Past Medical History Reviewed: Historical Data, Nursing Documentation, Vital Signs Vital Signs: Last Vital Signs Temp 98.6 F 09/15/18 07:47 Pulse 100 H 09/15/18 07:47 Resp 17 09/15/18 07:47 BP 137/76 09/15/18 07:47 Pulse Ox 96 09/15/18 07:47 - Medical History PMH: Anemia (B 12), Anxiety, Arthritis, Back Problems, Dementia, Depression, Diabetes, Gastritis, HTN, Hypercholesterolemia, Hypothyroidism, Rheumatoid Arthritis, Chronic Pain Denies: Chronic Kidney Disease - Surgical History Surgical History: Back Surgery (x3), Hernia Repair - Family History Family History: States: Unknown Family Hx - Home Medications Home Medications: Ambulatory Orders Medication Instructions Recorded Ergocalciferol (Vitamin D2) 50,000 unit PO MO 11/04/17 [Vitamin D2] Insulin Detemir [Levemir] 22 unit SC BID 11/04/17 Megestrol Acetate [Megace] 10 ml PO BID 11/04/17 Memantine [Namenda] 10 mg PO Q12 11/04/17 Metformin HCl [Metformin ER 1,000 mg PO BID 11/04/17 Osmotic] Pantoprazole Sodium [Protonix] 40 mg PO DAILY 11/04/17 Gabapentin [Neurontin] 600 mg PO Q8 03/04/18 Icosapent Ethyl [Vascepa] 2 gm PO Q12 05/12/18 rOPINIRole [Requip] 1 mg PO HS 05/12/18 Sertraline [Zoloft] 50 mg PO HS 09/02/18 Zolpidem [Ambien] 10 mg PO HS 09/02/18 traMADol/Acetaminophen [Ultracet 1 tab PO Q6 PRN 09/02/18 37.5/325 mg] - Allergies Allergies/Adverse Reactions: Allergies Allergy/AdvReac Type Severity Reaction Status Date / Time No Known Allergies Allergy Verified 09/15/18 07:55 Review of Systems ROS Statement: Except As Marked, All Systems Reviewed And Found Negative Constitutional: Positive for: Weakness (generalized) Cardiovascular: Positive for: Chest Pain (right sided ) Respiratory: Negative for: Shortness of Breath Genitourinary Female: Positive for: Dysuria. Negative for: Hematuria Neurological: Positive for: Headache. Negative for: Weakness (generalized; (-) focal weakness), Numbness Physical Exam - Reviewed Nursing Documentation Reviewed: Yes Vital Signs Reviewed: Yes - Physical Exam Appears: Positive for: Non-toxic, No Acute Distress Head Exam: Positive for: ATRAUMATIC, NORMOCEPHALIC Skin: Positive for: Normal Color, Warm, Dry Eye Exam: Positive for: Normal appearance, EOMI, PERRL ENT: Positive for: Normal ENT Inspection Neck: Positive for: Normal, Painless ROM, Supple Cardiovascular/Chest: Positive for: Regular Rate, Rhythm. Negative for: Murmur Respiratory: Positive for: Normal Breath Sounds. Negative for: Respiratory Distress Gastrointestinal/Abdominal: Positive for: Normal Exam, Soft. Negative for: Tenderness Back: Positive for: Normal Inspection. Negative for: L CVA Tenderness, R CVA Tenderness, Vertebral Tenderness Extremity: Positive for: Normal ROM. Negative for: Pedal Edema, Deformity Neurologic/Psych: Positive for: Alert, Oriented, Gait (steady and was able to ambulate without assistance). Negative for: Motor/Sensory Deficits, Other (ataxia) - Laboratory Results Result Diagrams: 09/15/18 08:25 09/15/18 08:25 - ECG O2 Sat by Pulse Oximetry: 96 (RA) Pulse Ox Interpretation: Normal Medical Decision Making Medical Decision Making: Time: 827 Impression: generalized weakness Plan: --CT head without contrast --EKG --CMP --Troponin I --TSH --ED urine dipstick --CBC with differential --PT --PTT --Portable chest xray --Urinalysis Time: 851 Chest x-ray FINDINGS: LUNGS: No active pulmonary disease. Improved pulmonary volumes appreciated. PLEURA: No significant pleural effusion identified, no pneumothorax apparent. CARDIOVASCULAR: Calcific atherosclerotic changes are seen related to the thoracic aorta. Normal cardiac size. No pulmonary vascular congestion. OSSEOUS STRUCTURES: No significant abnormalities. VISUALIZED UPPER ABDOMEN: Normal. OTHER FINDINGS: None. IMPRESSION: No interval acute cardiopulmonary disease appreciated. Time: 1020 CT head FINDINGS: HEMORRHAGE: No intracranial hemorrhage. BRAIN: There are mild chronic microangiopathic changes. There is no mass, mass effect or abnormal extra-axial fluid collection. There is no territorial infarction. The midline sagittal structures are normal.There are coarse atherosclerotic calcifications in the cavernous carotid arteries. VENTRICLES: There is mild age-related global parenchymal volume loss and proportionate enlargement of the cortical sulci. Ventricular dilatation is slightly out of proportion to the sulcal prominence with the temporal hole horns being dilated as well. CALVARIUM: There is no calvarial fracture or extracranial soft tissue swelling. PARANASAL SINUSES: Predominantly clear. MASTOID AIR CELLS: Predominantly clear. OTHER FINDINGS: None. IMPRESSION: No acute intracranial abnormality. Mild chronic microangiopathic changes and mild age-related global parenchymal volume loss. No significant interval change. Ventricular dilatation is slightly out of proportion to sulcal prominence and normal pressure hydrocephalus is a consideration. Clinical follow-up is advised. Time: 1033 --Spoke with Dr. Nowak, who recommends admission and consultation with neurology and neurosurgery. 10:[address] Thomas. Scribe Attestation: Documented by Ronal Calvo, acting as a scribe for Judy Bach MD. Provider Scribe Attestation: All medical record entries made by the Scribe were at my direction and personally dictated by me. I have reviewed the chart and agree that the record accurately reflects my personal performance of the history, physical exam, medical decision making, and the department course for this patient. I have also personally directed, reviewed, and agree with the discharge instructions and disposition. Disposition - Clinical Impression Clinical Impression: Generalized weakness, NPH (normal pressure hydrocephalus) - Patient ED Disposition Is Patient to be Admitted: Yes - Disposition Disposition Time: 10:34 Condition: STABLE Instructions: Weakness (ED) Forms: [facility] (Kazakh) - Pt Status Changed To: Hospital Disposition Of: Inpatient - Admit Certification Admit to Inpatient:: After my assessment, the patient will require hos pitalization for at least two midnights. This is because of the severity of symptoms shown, intensity of services needed, and/or the medical risk in this patient being treated as an outpatient. - POA Present On Arrival: None
--- NOTE | 2018-09-15 08:56 | RAD ---
Date of service: 09/15/2018 HISTORY: Generalized weakness COMPARISON: Frontal chest radiograph 09/02/2018. FINDINGS: LUNGS: No active pulmonary disease. Improved pulmonary volumes appreciated. PLEURA: No significant pleural effusion identified, no pneumothorax apparent. CARDIOVASCULAR: Calcific atherosclerotic changes are seen related to the thoracic aorta. Normal cardiac size. No pulmonary vascular congestion. OSSEOUS STRUCTURES: No significant abnormalities. VISUALIZED UPPER ABDOMEN: Normal. OTHER FINDINGS: None. IMPRESSION: No interval acute cardiopulmonary disease appreciated.
[2018-09-15 09:11] LABS: BASO # 0.1 K/uL (0.0-0.2); BASO % 0.5 % (0.0-2.0); EOS # 0.1 K/uL (0.0-0.7); EOS % 0.9 % (0.0-4.0); HEMOGLOBIN 10.2 g/dL (12.0-16.0); LYMPH # 1.9 K/uL (1.0-4.3); LYMPH % 16.2 % (20.0-40.0); MEAN CELL VOLUME 79.5 fl (81.0-99.0); MEAN CORPUSCULAR HEMOGLOBIN 23.4 pg (27.0-31.0); MEAN CORPUSCULAR HGB CONC 29.4 g/dL (33.0-37.0); MEAN PLATELET VOLUME 8.8 fl (7.2-11.7); MONO # 0.7 K/uL (0.0-0.8); MONO % 6.4 % (0.0-10.0); NEUT # 8.7 K/uL (1.8-7.0); RBC 4.37 Mil/uL (3.80-5.20); RED CELL DISTRIBUTION WIDTH 20.8 % (11.5-14.5); WHITE BLOOD COUNT 11.5 K/uL (4.8-10.8)
[2018-09-15 09:26] LABS: PROTHROMBIN TIME 10.8 Seconds (9.8-13.1)
[2018-09-15 09:28] LABS: SQUAMOUS EPITHIAL 2 /hpf (0-5); URINE BACTERIA RARE (<OCC); URINE BILIRUBIN NEGATIVE (NEGATIVE); URINE BLOOD NEGATIVE (NEGATIVE); URINE CLARITY CLEAR (Clear); URINE COLOR YELLOW (YELLOW); URINE GLUCOSE (UA) >=500 mg/dL (NEGATIVE); URINE LEUKOCYTE ESTERASE TRACE Leu/uL (Negative); URINE PROTEIN NEGATIVE (NEGATIVE); URINE UROBILINOGEN 0.2-1.0 mg/dL (0.2-1.0)
[2018-09-15 09:29] LABS: PARTIAL THROMBOPLASTIN TIME 28.9 Seconds (25.6-37.1)
[2018-09-15 09:31] LABS: ALB/GLOB RATIO 1.3 (1.0-2.1); ALBUMIN 4.1 g/dL (3.5-5.0); ALT/SGPT 15 U/L (9-52); AST/SGOT 26 U/L (14-36); BLOOD UREA NITROGEN 16 mg/dl (7-17); CALCIUM 10.1 mg/dL (8.4-10.2); GFR NON-AFRICAN AMERICAN > 60
--- NOTE | 2018-09-15 10:24 | CT ---
Date of service: 09/15/2018 PROCEDURE: CT HEAD WITHOUT CONTRAST. HISTORY: Generalized weakness COMPARISON: 09/02/2018. TECHNIQUE: Axial computed tomography images were obtained through the head/brain without intravenous contrast. Radiation dose: Total exam DLP = 780.87 mGy-cm. This CT exam was performed using one or more of the following dose reduction techniques: Automated exposure control, adjustment of the mA and/or kV according to patient size, and/or use of iterative reconstruction technique. FINDINGS: HEMORRHAGE: No intracranial hemorrhage. BRAIN: There are mild chronic microangiopathic changes. There is no mass, mass effect or abnormal extra-axial fluid collection. There is no territorial infarction. The midline sagittal structures are normal.There are coarse atherosclerotic calcifications in the cavernous carotid arteries. VENTRICLES: There is mild age-related global parenchymal volume loss and proportionate enlargement of the cortical sulci. Ventricular dilatation is slightly out of proportion to the sulcal prominence with the temporal hole horns being dilated as well. CALVARIUM: There is no calvarial fracture or extracranial soft tissue swelling. PARANASAL SINUSES: Predominantly clear. MASTOID AIR CELLS: Predominantly clear. OTHER FINDINGS: None. IMPRESSION: No acute intracranial abnormality. Mild chronic microangiopathic changes and mild age-related global parenchymal volume loss. No significant interval change. Ventricular dilatation is slightly out of proportion to sulcal prominence and normal pressure hydrocephalus is a consideration. Clinical follow-up is advised.
--- NOTE | 2018-09-15 10:45 | CARD ---
APPROVED REPORT Date of service: 09/15/2018 EKG Measurement Heart [id number] <Conclusion> Sinus tachycardia Otherwise normal ECG
[2018-09-15] MEDS ORDERED: ACETAMINOPHEN PO PRN (17:55)
[2018-09-15] MEDS ORDERED: TRAMADOL PO PRN (17:55)
[2018-09-16 07:13] LABS: HEMOGLOBIN 10.5 g/dL (12.0-16.0); MEAN CELL VOLUME 77.8 fl (81.0-99.0); MEAN CORPUSCULAR HEMOGLOBIN 23.4 pg (27.0-31.0); MEAN CORPUSCULAR HGB CONC 30.1 g/dL (33.0-37.0); RBC 4.49 Mil/uL (3.80-5.20); RED CELL DISTRIBUTION WIDTH 20.4 % (11.5-14.5); WHITE BLOOD COUNT 11.1 K/uL (4.8-10.8)
[2018-09-16 07:35] LABS: LDL CHOLESTEROL 142 mg/dL (0-129)
[2018-09-16 07:45] LABS: ALB/GLOB RATIO 1.3 (1.0-2.1); ALBUMIN 4.3 g/dL (3.5-5.0); ALT/SGPT 23 U/L (9-52); AST/SGOT 16 U/L (14-36); BLOOD UREA NITROGEN 13 mg/dl (7-17); GFR NON-AFRICAN AMERICAN > 60; HDL CHOLESTEROL 47 MG/DL (30-70)
[2018-09-16] MEDS ORDERED: Insulin Detemir 100 Units/ml Inj SC SCH ×2 (09:00→22:00)
[2018-09-16] MEDS ORDERED: METFORMIN HCL 1000 MG PO SCH (09:00)
[2018-09-16] MEDS: Pantoprazole 40 mg EC Tab PO SCH (09:05)
[2018-09-16] MEDS: Megestrol Acetate 40 mg/ml Cup PO SCH ×2 (09:08→16:36)
--- NOTE | 2018-09-16 13:39 | CP.PCM.CON ---
History of Present Illness - History of Present Illness History of Present Illness: dictated Really no symptoms of NPH suggest further w/u for generalized weakness Past Patient History - Infectious Disease Hx of Infectious Diseases: None - Past Medical History & Family History Past Medical History?: Yes - Past Social History Smoking Status: Never Smoked - CARDIAC Hx Cardiac Disorders: Yes - PULMONARY Hx Respiratory Disorders: No - NEUROLOGICAL Hx Neurological Disorder: Yes - HEENT Hx HEENT Problems: Yes - RENAL Hx Chronic Kidney Disease: No - ENDOCRINE/METABOLIC Hx Endocrine Disorders: Yes - HEMATOLOGICAL/ONCOLOGICAL Hx Blood Disorders: Yes - INTEGUMENTARY Hx Dermatological Problems: Yes - MUSCULOSKELETAL/RHEUMATOLOGICAL Hx Musculoskeletal Disorders: Yes - GASTROINTESTINAL Hx Gastritis: Yes - GENITOURINARY/GYNECOLOGICAL Hx Genitourinary Disorders: No - PSYCHIATRIC Hx Psychophysiologic Disorder: Yes - SURGICAL HISTORY Hx Surgeries: Yes Hx Cataract Extraction: Yes (BOTH EYES) Hx Orthopedic Surgery: Yes (R shoulder, R-L foot surger x 5) Other/Comment: Multiple epidural blocks. - ANESTHESIA Hx Anesthesia: Yes Hx Anesthesia Reactions: No Hx Malignant Hyperthermia: No Meds Allergies/Adverse Reactions: Allergies Allergy/AdvReac Type Severity Reaction Status Date / Time No Known Allergies Allergy Verified 09/15/18 07:55 - Medications Medications: Current Medications Ergocalciferol (Drisdol 50,000 Intl Units Cap) 1 cap PO MO [facility] Gabapentin (Neurontin) 600 mg PO Q8 [facility] Last Admin: 09/16/18 09:04 Dose: 600 mg Home Med (Icosapent Ethyl [Vascepa]) 2 gm PO Q12 [facility] Home Med (Ropinirole [Requip]) 1 mg PO HS [facility] Home Med (Tramadol/Acetaminophen [Ultracet 37.5/325 Mg]) 1 tab PO Q6 PRN PRN Reason: Pain, severe (8-10) Insulin Detemir (Levemir) 22 units SC BID [facility] Last Admin: 09/16/18 09:04 Dose: 22 units Megestrol Acetate (Megace) 400 mg PO BID [facility] Last Admin: 09/16/18 09:08 Dose: 400 mg Memantine (Namenda) 10 mg PO Q12 [facility] Last Admin: 09/16/18 09:04 Dose: 10 mg Metformin HCl (Glucophage) 500 mg PO 0800,1700 [facility] Last Admin: 09/16/18 09:04 Dose: 500 mg Pantoprazole Sodium (Protonix Ec Tab) 40 mg PO DAILY [facility] Last Admin: 09/16/18 09:05 Dose: 40 mg Sertraline HCl (Zoloft) 50 mg PO [facility] Last Admin: 09/15/18 22:14 Dose: 50 mg Zolpidem Tartrate (Ambien) 10 mg PO HS [facility] Last Admin: 09/15/18 22:24 Dose: 10 mg Results - Vital Signs Recent Vital Signs: Last Vital Signs Temp 97.3 F L 09/16/18 08:36 Pulse 78 09/16/18 08:36 Resp 20 09/16/18 08:36 BP 121/60 09/16/18 08:36 Pulse Ox 96 09/16/18 09:00 - Labs Result Diagrams: 09/16/18 06:30 09/16/18 06:30 Labs: Laboratory Results - last 24 hr 09/16/18 09/16/18 09/16/18 02:17 05:10 06:30 WBC 11.1 H RBC 4.49 Hgb 10.5 L Hct 34.9 MCV 77.8 L MCH 23.4 L MCHC 30.1 L RDW 20.4 H Plt Count 350 Sodium Potassium Chloride Carbon Dioxide Anion Gap BUN Creatinine Est GFR ( Amer) Est GFR (Non-Af Amer) POC Glucose (mg/dL) 221 H 216 H Random Glucose Hemoglobin A1c Calcium Total Bilirubin AST ALT Alkaline Phosphatase Total Protein Albumin Globulin Albumin/Globulin Ratio Triglycerides Cholesterol LDL Cholesterol Direct HDL Cholesterol Thyroxine (T4) TSH 3rd Generation 09/16/18 09/16/18 09/16/18 06:30 06:30 10:40 WBC RBC Hgb Hct MCV MCH MCHC RDW Plt Count Sodium 143 Potassium 4.2 Chloride 101 Carbon Dioxide 24 Anion Gap 22 H BUN 13 Creatinine 0.6 L Est GFR ( Amer) > 60 Est GFR (Non-Af Amer) > 60 POC Glucose (mg/dL) 380 H Random Glucose 198 H Hemoglobin A1c 11.6 H Calcium 10.0 Total Bilirubin 0.2 AST 16 ALT 23 Alkaline Phosphatase 124 Total Protein 7.6 Albumin 4.3 Globulin 3.3 Albumin/Globulin Ratio 1.3 Triglycerides 119 D Cholesterol 214 H LDL Cholesterol Direct 142 H HDL Cholesterol 47 Thyroxine (T4) 8.25 TSH 3rd Generation 1.96
--- NOTE | 2018-09-16 15:14 | CP.PCM.HP ---
History of Present Illness - History of Present Illness History of Present Illness: CC: Neurological deficit. 68 y/o F, PMHx. R/A, O/A, Chronic back pain with back surgery x3, HTN, DM, [facility] for Generalized Weakness that began for a month, worsening 4 days [employer] with no relief, associated to generalized body pain, aching type, moderate to severe intensity 6-8:10, d izziness with no relief. Worsening symptoms: Dysuria, headache, chronic back pain. Aggravated factor: Standing/walking, ADLs. Pt denied: Fever, chills, n/v/d, abdominal pain, palpitations, syncope, SOB, cough, sick contact, recent travel out of [facility]. CXR: No acute cardiopulmonary disease. Head CT: No acute intracranial abnormality, mild chronic changes age related. EKG: Sinus tachycardia. Present on Admission - Present on Admission Any Indicators Present on Admission: No Review of Systems - Constitutional Constitutional: Headache, Weakness - EENT Eyes: Requires Corrective Lenses Ears: Other (negative) Nose/Mouth/Throat: Other (negative) - Cardiovascular Cardiovascular: Rapid Heart Rate - Respiratory Respiratory: Other (negative) - Gastrointestinal Gastrointestinal: Other (negative) - Genitourinary Genitourinary: Dysuria - Musculoskeletal Musculoskeletal: Arthralgias, Back Pain, Radiating Pain into Limb - Integumentary Integumentary: Other (negative) - Neurological Neurological: Dizziness, Headaches, Restless Legs (at night), Weakness - Psychiatric Psychiatric: Anxiety, Depression - Endocrine Endocrine: Other (negative) - Hematologic/Lymphatic Hematologic: Other (negative) Past Patient History - Infectious Disease Hx of Infectious Diseases: None - Past Medical History & Family History Past Medical History?: Yes Pertinent Family History: Unknown - Past Social History Smoking Status: Never Smoked Alcohol: None Drugs: Denies Home Situation {Lives}: With Family - CARDIAC Hx Cardiac Disorders: Yes Hx Hypercholesterolemia: Yes Hx Hypertension: Yes - PULMONARY Hx Respiratory Disorders: No - NEUROLOGICAL Hx Neurological Disorder: Yes - HEENT Hx HEENT Problems: Yes Hx Cataracts: Yes Other/Comment: Excision of cyst R eye - RENAL Hx Chronic Kidney Disease: No - ENDOCRINE/METABOLIC Hx Endocrine Disorders: Yes (Diabetes Retinopathy.) Hx Diabetes Mellitus Type 2: Yes Hx Hypothyroidism: Yes - HEMATOLOGICAL/ONCOLOGICAL Hx Blood Disorders: Yes Hx Anemia: Yes (B 12) - INTEGUMENTARY Hx Dermatological Problems: Yes (Excision Neuroma of feet, excision of sebaceous L shoulder) - MUSCULOSKELETAL/RHEUMATOLOGICAL Hx Musculoskeletal Disorders: Yes Hx Arthritis: Yes Hx Back Pain: Yes Hx Herniated Disk: Yes Hx Rheumatoid Arthritis: Yes - GASTROINTESTINAL Hx Gastrointestinal Disorders: Yes Hx Gastritis: Yes - GENITOURINARY/GYNECOLOGICAL Hx Genitourinary Disorders: No - PSYCHIATRIC Hx Psychophysiologic Disorder: Yes Hx Anxiety: Yes Hx Depression: Yes - SURGICAL HISTORY Hx Surgeries: Yes Hx Cataract Extraction: Yes (BOTH EYES) Hx Orthopedic Surgery: Yes (R shoulder, R-L foot surger x 5) Other/Comment: Multiple epidural blocks. - ANESTHESIA Hx Anesthesia: Yes Hx Anesthesia Reactions: No Hx Malignant Hyperthermia: No Meds Allergies/Adverse Reactions: Allergies Allergy/AdvReac Type Severity Reaction Status Date / Time No Known Allergies Allergy Verified 09/15/18 07:55 Physical Exam - Constitutional Appears: No Acute Distress - Head Exam Head Exam: NORMAL INSPECTION - Eye Exam Eye Exam: PERRL - ENT Exam ENT Exam: Normal Exam - Neck Exam Neck exam: Positive for: Normal Inspection - Respiratory Exam Respiratory Exam: NORMAL BREATHING PATTERN - Cardiovascular Exam Cardiovascular Exam: REGULAR RHYTHM - GI/Abdominal Exam GI & Abdominal Exam: Normal Bowel Sounds, Soft - Extremities Exam Additional comments: Coldness R-L foot - Back Exam Back exam: tenderness (L-S) - Neurological Exam Neurological exam: Alert, Oriented x3 Additional comments: Generalized weakness, numbness/decreased sensation in feet and hands. - Psychiatric Exam Psychiatric exam: Anxious, Depressed - Skin Skin Exam: Warm Results - Vital Signs Recent Vital Signs: Last Vital Signs Temp 97.3 F L 09/16/18 08:36 Pulse 78 09/16/18 08:36 Resp 20 09/16/18 08:36 BP 121/60 09/16/18 08:36 Pulse Ox 96 09/16/18 09:00 reviewed Tiara - Labs Result Diagrams: 09/16/18 06:30 09/16/18 06:30 Labs: Laboratory Results - last 24 hr 09/16/18 09/16/18 09/16/18 02:17 05:10 06:30 WBC 11.1 H RBC 4.49 Hgb 10.5 L Hct 34.9 MCV 77.8 L MCH 23.4 L MCHC 30.1 L RDW 20.4 H Plt Count 350 Sodium Potassium Chloride Carbon Dioxide Anion Gap BUN Creatinine Est GFR ( Amer) Est GFR (Non-Af Amer) POC Glucose (mg/dL) 221 H 216 H Random Glucose Hemoglobin A1c Calcium Total Bilirubin AST ALT Alkaline Phosphatase Total Protein Albumin Globulin Albumin/Globulin Ratio Triglycerides Cholesterol LDL Cholesterol Direct HDL Cholesterol Thyroxine (T4) TSH 3rd Generation 09/16/18 09/16/18 09/16/18 06:30 06:30 10:40 WBC RBC Hgb Hct MCV MCH MCHC RDW Plt Count Sodium 143 Potassium 4.2 Chloride 101 Carbon Dioxide 24 Anion Gap 22 H BUN 13 Creatinine 0.6 L Est GFR ( Amer) > 60 Est GFR (Non-Af Amer) > 60 POC Glucose (mg/dL) 380 H Random Glucose 198 H Hemoglobin A1c 11.6 H Calcium 10.0 Total Bilirubin 0.2 AST 16 ALT 23 Alkaline Phosphatase 124 Total Protein 7.6 Albumin 4.3 Globulin 3.3 Albumin/Globulin Ratio 1.3 Triglycerides 119 D Cholesterol 214 H LDL Cholesterol Direct 142 H HDL Cholesterol 47 Thyroxine (T4) 8.25 TSH 3rd Generation 1.96 reviewed J.P. - EKG Data EKG comments: Reviewed J.P. - Imaging and Cardiology Chest x-ray Status: Report reviewed by me (Lawson.) CT scan - head Status: Report reviewed by me (Tiara) Assessment & Plan (1) Generalized weakness Status: Acute Priority: High (2) Hyperglycemia due to type 2 diabetes mellitus Status: Acute Priority: High (3) Diabetes mellitus Status: Chronic Priority: High (4) Diabetic neuropathy Status: Chronic Priority: High (5) History of lumbar laminectomy Status: Chronic Priority: High (6) History of restless legs syndrome Status: Chronic Priority: High (7) Hypercholesterolemia Status: Chronic Priority: High (8) Radiculopathy of lumbar region Status: Chronic Priority: Medium (9) Chronic back pain Status: Chronic Priority: High (10) Headache Status: Acute Priority: Medium - Assessment and Plan (Free Text) Plan: F/U Echo, continue Insulin, Ambien, Zoloft, Neurontin and rest of Tx, PT/OT eval. Neurology consult appreciated. Psychiatric and Endocrine consult. - Date & Time Date: 09/16/18 Time: 13:10
--- NOTE | 2018-09-16 15:48 | CARD ---
APPROVED REPORT Date of service: 09/16/2018 EXAM: Two-dimensional and M-mode echocardiogram with Doppler and color Doppler. Other Information Quality : GoodRhythm : NSR INDICATION Abnormal EKG/Arrhythmia 2D DIMENSIONS IVSd0.97 (0.7-1.1cm)LVDd3.13 (3.9-5.9cm) LVOT Diameter1.95 (1.8-2.4cm)PWd0.95 (0.7-1.1cm) IVSs1.38 (0.8-1.2cm)LVDs2.27 (2.5-4.0cm) FS (%) 27.6 %PWs1.18 (0.8-1.2cm) M-Mode DIMENSIONS Left Atrium (MM)3.71 (2.5-4.0cm)IVSd1.21 (0.7-1.1cm) Aortic Root3.12 (2.2-3.7cm)LVDd4.32 (4.0-5.6cm) Aortic Cusp Exc.1.68 (1.5-2.0cm)PWd1.29 (0.7-1.1cm) IVSs1.62 cmFS (%) 46 % LVDs2.35 (2.0-3.8cm)PWs1.59 cm Aortic Valve AoV Peak Edfaprkz449.5cm/sAoV VTI23.2cmAO Peak GR.9mmHg LVOT Peak Omakrjgk25.1cm/sLVOT VTI18.77cmAO Mean GR.5mmHg SONU (VMAX)1.92ci5BRM (VTI)1.38cm2 Mitral Valve MV E Ptrtwrsx85.6cm/sMV DECEL GTOW012pnIB A Mjgzjqvn68.4cm/s MV GNO51rpK/A ratio0.7MVA (PHT)2.95cm2 TDI Lateral E' Peak V7.53cm/sMedial E' Peak V4.07cm/sE/Lateral E'8.3 E/Medial E'15.4 LEFT VENTRICLE The left ventricle is normal size. There is normal left ventricular wall thickness. The left ventricular systolic function is normal. The estimated ejection fraction is 60-65% No regional wall motion abnormalities noted.. Transmitral Doppler flow pattern is Grade I-abnormal relaxation pattern. No left ventricle thrombus noted on this study. There is no ventricular septal defect visualized. There is no left ventricular aneurysm. There is no mass noted in the left ventricle. RIGHT VENTRICLE The right ventricle is normal size. There is normal right ventricular wall thickness. The right ventricular systolic function is normal. ATRIA The left atrium size is normal. The right atrium size is normal. The interatrial septum is intact with no evidence for an atrial septal defect. AORTIC VALVE The aortic valve is normal in structure. No aortic regurgitation is present. There is no aortic valvular stenosis. There is no aortic valvular vegetation. MITRAL VALVE The mitral valve is normal in structure. There is no evidence of mitral valve prolapse. There is no mitral valve stenosis. There is no mitral valve regurgitation noted. TRICUSPID VALVE The tricuspid valve is normal in structure. There is no tricuspid valve regurgitation noted. There is no tricuspid valve prolapse or vegetation. There is no tricuspid valve stenosis. PULMONIC VALVE The pulmonary valve is normal in structure. There is no pulmonic valvular regurgitation. There is no pulmonic valvular stenosis. GREAT VESSELS The aortic root is normal in size. The ascending aorta is normal in size. The pulmonary artery is normal. The IVC is normal in size and collapses >50% with inspiration. PERICARDIAL EFFUSION There is no pericardial effusion. There is no pleural effusion. <Conclusion> The estimated ejection fraction is 60-65% Transmitral Doppler flow pattern is Grade I-abnormal relaxation pattern. The left atrium size is normal. There is no tricuspid valve regurgitation noted.
[2018-09-16] MEDS ORDERED: Insulin Regular 100 units/ml SC SCH (16:30)
[2018-09-16] MEDS: Insulin Lispro (humaLOG) 100 Units/ml Inj SC SCH ×3 (16:34→21:48)
--- NOTE | 2018-09-16 17:24 | CP.PCM.CON ---
History of Present Illness - History of Present Illness History of Present Illness: Electrodiagnostic/PMR consultation on Zahira Escamilla, born 1950 who has been admitted and is complaining of weakness that is diffuse. She has a long standing history of diabetes which does not appear to be too carefully addressed . Brain imaging did not show evidence of an acute event. Lab work had mild anemia with elevated BS Review of Systems - Constitutional Constitutional: absent: Anorexia, Chills - EENT Ears: absent: Ear Discharge Nose/Mouth/Throat: absent: Nasal Congestion - Cardiovascular Cardiovascular: absent: Chest Pain - Respiratory Respiratory: absent: Dyspnea, Hemoptysis - Gastrointestinal Gastrointestinal: absent: Belching, Constipation - Musculoskeletal Musculoskeletal: absent: Abnormal Gait, Back Pain, Myalgias - Neurological Neurological: Numbness, Paresthesias. absent: Abnormal Movements, Behavioral Changes, Burning Sensations, Dizziness, Radicular Pain, Vertigo Past Patient History - Infectious Disease Hx of Infectious Diseases: None - Past Medical History & Family History Past Medical History?: Yes - Past Social History Smoking Status: Never Smoked - CARDIAC Hx Cardiac Disorders: Yes - PULMONARY Hx Respiratory Disorders: No - NEUROLOGICAL Hx Neurological Disorder: Yes - HEENT Hx HEENT Problems: Yes - RENAL Hx Chronic Kidney Disease: No - ENDOCRINE/METABOLIC Hx Endocrine Disorders: Yes - HEMATOLOGICAL/ONCOLOGICAL Hx Blood Disorders: Yes - INTEGUMENTARY Hx Dermatological Problems: Yes - MUSCULOSKELETAL/RHEUMATOLOGICAL Hx Musculoskeletal Disorders: Yes - GASTROINTESTINAL Hx Gastritis: Yes - GENITOURINARY/GYNECOLOGICAL Hx Genitourinary Disorders: No - PSYCHIATRIC Hx Psychophysiologic Disorder: Yes - SURGICAL HISTORY Hx Surgeries: Yes Hx Cataract Extraction: Yes (BOTH EYES) Hx Orthopedic Surgery: Yes (R shoulder, R-L foot surger x 5) Other/Comment: Multiple epidural blocks. - ANESTHESIA Hx Anesthesia: Yes Hx Anesthesia Reactions: No Hx Malignant Hyperthermia: No Meds Allergies/Adverse Reactions: Allergies Allergy/AdvReac Type Severity Reaction Status Date / Time No Known Allergies Allergy Verified 09/15/18 07:55 - Medications Medications: Current Medications Ergocalciferol (Drisdol 50,000 Intl Units Cap) 1 cap PO MO [facility] Gabapentin (Neurontin) 600 mg PO Q8 [facility] Last Admin: 09/16/18 16:36 Dose: 600 mg Home Med (Icosapent Ethyl [Vascepa]) 2 gm PO Q12 [facility] Home Med (Ropinirole [Requip]) 1 mg PO [facility] Home Med (Tramadol/Acetaminophen [Ultracet 37.5/325 Mg]) 1 tab PO Q6 PRN PRN Reason: Pain, severe (8-10) Insulin Detemir (Levemir) 30 units SC [facility] Insulin Human Lispro (Humalog) 8 units SC AC [facility] Last Admin: 09/16/18 16:34 Dose: 8 units Insulin Human Lispro (Humalog) 0 units SC ACHS [facility] Last Admin: 09/16/18 16:35 Dose: 3 units Megestrol Acetate (Megace) 400 mg PO BID [facility] Last Admin: 09/16/18 16:36 Dose: 400 mg Memantine (Namenda) 10 mg PO Q12 [facility] Last Admin: 09/16/18 09:04 Dose: 10 mg Metformin HCl (Glucophage) 1,000 mg PO 0800,1700 [facility] Last Admin: 09/16/18 16:35 Dose: 1,000 mg Pantoprazole Sodium (Protonix Ec Tab) 40 mg PO DAILY [facility] Last Admin: 09/16/18 09:05 Dose: 40 mg Sertraline HCl (Zoloft) 50 mg PO [facility] Last Admin: 09/15/18 22:14 Dose: 50 mg Zolpidem Tartrate (Ambien) 10 mg PO [facility] Last Admin: 09/15/18 22:24 Dose: 10 mg Physical Exam - Constitutional Appears: Well, Non-toxic, No Acute Distress - Head Exam Head Exam: ATRAUMATIC, NORMAL INSPECTION, NORMOCEPHALIC - Eye Exam Eye Exam: EOMI - ENT Exam ENT Exam: Mucous Membranes Moist - Respiratory Exam Respiratory Exam: NORMAL BREATHING PATTERN - Cardiovascular Exam Cardiovascular Exam: REGULAR RHYTHM - GI/Abdominal Exam GI & Abdominal Exam: absent: Distended - Back Exam Back exam: absent: muscle spasm - Neurological Exam Neurological exam: Alert, CN II-XII Intact, Normal Gait (slow and functional), Oriented x3 - Expanded Neurological Exam Expanded Neuro motor strength exam: Left Upper Extremity: 5, Right Upper Extremity: 5, Left Lower Extremity: 5, Right Lower Extremity: 5 Coma Scale Eye Opening: SPONTANEOUS Coma Scale Motor Response: OBEYS COMMANDS - Psychiatric Exam Psychiatric exam: Normal Affect, Normal Mood - Skin Skin Exam: Warm Results - Vital Signs Recent Vital Signs: Last Vital Signs Temp 99 F 09/16/18 16:28 Pulse 96 H 09/16/18 16:28 Resp 18 09/16/18 16:28 BP 122/67 09/16/18 16:28 Pulse Ox 97 09/16/18 16:28 - Labs Result Diagrams: 09/16/18 06:30 09/16/18 06:30 Labs: Laboratory Results - last 24 hr 09/16/18 09/16/18 09/16/18 02:17 05:10 06:30 WBC 11.1 H RBC 4.49 Hgb 10.5 L Hct 34.9 MCV 77.8 L MCH 23.4 L MCHC 30.1 L RDW 20.4 H Plt Count 350 Sodium Potassium Chloride Carbon Dioxide Anion Gap BUN Creatinine Est GFR ( Amer) Est GFR (Non-Af Amer) POC Glucose (mg/dL) 221 H 216 H Random Glucose Hemoglobin A1c Calcium Total Bilirubin AST ALT Alkaline Phosphatase Total Protein Albumin Globulin Albumin/Globulin Ratio Triglycerides Cholesterol LDL Cholesterol Direct HDL Cholesterol Vitamin B12 Thyroxine (T4) TSH 3rd Generation 09/16/18 09/16/18 09/16/18 06:30 06:30 10:40 WBC RBC Hgb Hct MCV MCH MCHC RDW Plt Count Sodium 143 Potassium 4.2 Chloride 101 Carbon Dioxide 24 Anion Gap 22 H BUN 13 Creatinine 0.6 L Est GFR ( Amer) > 60 Est GFR (Non-Af Amer) > 60 POC Glucose (mg/dL) 380 H Random Glucose 198 H Hemoglobin A1c 11.6 H Calcium 10.0 Total Bilirubin 0.2 AST 16 ALT 23 Alkaline Phosphatase 124 Total Protein 7.6 Albumin 4.3 Globulin 3.3 Albumin/Globulin Ratio 1.3 Triglycerides 119 D Cholesterol 214 H LDL Cholesterol Direct 142 H HDL Cholesterol 47 Vitamin B12 Thyroxine (T4) 8.25 TSH 3rd Generation 1.96 09/16/18 09/16/18 15:33 16:21 WBC RBC Hgb Hct MCV MCH MCHC RDW Plt Count Sodium Potassium Chloride Carbon Dioxide Anion Gap BUN Creatinine Est GFR ( Amer) Est GFR (Non-Af Amer) POC Glucose (mg/dL) 372 H Random Glucose Hemoglobin A1c Calcium Total Bilirubin AST ALT Alkaline Phosphatase Total Protein Albumin Globulin Albumin/Globulin Ratio Triglycerides Cholesterol LDL Cholesterol Direct HDL Cholesterol Vitamin B12 578 Thyroxine (T4) TSH 3rd Generation Assessment & Plan - Assessment and Plan (Free Text) Assessment: 68 year old female diabetic c/o weakness all over with no focal strength deficit normal tone some long standing numbness from said diabetes I am asked to perform an emg/ncs which I will do at bedside tomorrow but no evidence of an upper motor neuron issue normal slow functional gait can sit to stand multiple times which is not consistent of a myopathy and no proximal weakness no bulbar signs or symptoms. CT head did not show acute event This is likely secondary to blood sugars and health issues versus a neurological abnormality. Likely the emg/ncs will show evidence of a peripheral neuropathy given her long standing diabetes and will be a non-specific finding there are no radicular complaints or abnormalities on examination
--- NOTE | 2018-09-16 23:49 | CON ---
DATE: 09/16/2018 ENDOCRINOLOGY CONSULTATION LOCATION: Room 654. HISTORY OF PRESENT ILLNESS: This is a 68-year-old female with known history of type 2 insulin-requiring diabetes, presenting here with generalized body weakness and urinary symptoms and is now being referred for diabetic evaluation because of persistent hyperglycemic accelerations as noted thereof. PAST MEDICAL HISTORY: As mentioned above, history of type 2 insulin-requiring diabetes, on Levemir taken as 22 units subcu twice daily with metformin given as 1 g b.i.d.; history of hypertension and dyslipidemia; history of generalized anxiety and depression, on psychotropic medications; history of early dementia with occasional lapses of memory as noted. FAMILY HISTORY: Positive for diabetes and hypertension. SOCIAL HISTORY: The patient has supportive family. No known substance use. REVIEW OF SYSTEMS: As mentioned above. Admits to generalized body weakness with easy fatigability and tiredness and suboptimal energy level. Also admits to occasional bifrontal headaches with visual blurring. No chest pains or palpitations but admits to occasional shortness of breath especially on exertion. Her oral intake has been variable with nausea, dyspepsia and vague upper abdominal pain. Also admits to marked polyuria, nocturia and polydipsia. PHYSICAL EXAMINATION: GENERAL: An average-built female in no apparent distress. VITAL SIGNS: With a blood pressure of 140/80, pulse of 80 beats per minute and regular, temperature 98, respirations 20. Height is 5 feet 2 inches. Weight is 160 pounds. HEENT: Head normocephalic. Eyes anicteric with pink conjunctivae. Funduscopy not possible at this time. Ears, nose and throat otherwise normal. NECK: Supple. Thyroid gland is normal in size. No carotid bruits or any cervical adenopathy. CARDIOPULMONARY: Some adynamic precordium. S1 and S2, rapid and regular. LUNGS: Clear to auscultation. ABDOMEN: Flat, soft with positive bowel sounds. EXTREMITIES: No peripheral edema. Pulses are +2 bilaterally. LABORATORY DATA: Chemistries: BUN of 13, sodium 143, potassium 4.2, chloride 101, CO2 of 24, glucose 198 and creatinine 0.6. Her A1c is 11.6% which is quite elevated and indicative of suboptimal metabolic control of her diabetic condition even prior to this admission. Her TSH is 1.96. ASSESSMENT: This is a 68-year-old female with uncontrolled and decompensated type 2 insulin-requiring diabetes with marked hyperglycemic accelerations. The latest one of which is 380 mg/dL as noted with concomitant elevated A1c of 11.6% as mentioned. She also has diabetic retinopathy and polyneuropathy with lower extremity paresthesias as noted. PLAN OF MANAGEMENT: We will modify her current insulin regimen and switch her over to a more physiologic basal and bolus insulin drug combination as ordered. We will start her with Humalog given as 8 units t.i.d. before meals to start today as ordered. We will modify the coverage scale to obviate hypoglycemia and detailed orders have been given. We will also add basal insulin with Levemir given as 30 units subcu at bedtime daily to start tonight. We will obtain serial chemistries and supplement accordingly as needed. We will follow. Michelle Marcano MD
[2018-09-17] MEDS: Insulin Lispro (humaLOG) 100 Units/ml Inj SC SCH ×6 (06:37→21:47)
--- NOTE | 2018-09-17 07:47 | CP.PCM.CON ---
History of Present Illness - History of Present Illness History of Present Illness: Psychiatry consult note CC: Generalized weakness HPI: 68 yo female w/ h/o chronic back pain, HTN, DM, dementia, GERD, presents w/ generalized weakness and R sided chest pain. Patient reports that she feels depressed and anxious because she is worried about her medical health and chronic weakness. She denies acute AH/VH/SI/HI/paranoia/delusions. She reports that she does not want to continue Zoloft because she believes it caused her to have abnormal buccal movements. She is aware that she has memory deficits. She also reports sleep/appetite disturbances. PPHx: No current outpatient psychiatric treatment; on Zoloft from PMD; denies h/o psychiatric hospitalizations or suicide attempts PMHx: chronic back pain (s/p back surgeries), HTN, DM, dementia, GERD ALL: NKDA SHx: From [place]; lives w/ ; has 2 adult children; denies drugs/etoh/cig use Impression: 68 yo female w/ h/o chronic back pain, HTN, DM, dementia, GERD, has depressive disorder (Adjustment Disorder vs MDD) and possible somatic preoccupation. -Stop Zoloft -Start Remeron 7.5 mg PO HS -Recommend outpatient psychiatric appointment upon discharge -No acute psychiatric admission indicated at this time; no 1:1 indicated Past Patient History - Infectious Disease Hx of Infectious Diseases: None - Past Medical History & Family History Past Medical History?: Yes - Past Social History Smoking Status: Never Smoked Alcohol: None Drugs: Denies Home Situation {Lives}: With Family - CARDIAC Hx Cardiac Disorders: Yes Hx Hypercholesterolemia: Yes Hx Hypertension: Yes - PULMONARY Hx Respiratory Disorders: No - NEUROLOGICAL Hx Neurological Disorder: Yes - HEENT Hx HEENT Problems: Yes Hx Cataracts: Yes Other/Comment: Excision of cyst R eye - RENAL Hx Chronic Kidney Disease: No - ENDOCRINE/METABOLIC Hx Endocrine Disorders: Yes (Diabetes Retinopathy.) Hx Diabetes Mellitus Type 2: Yes Hx Hypothyroidism: Yes - HEMATOLOGICAL/ONCOLOGICAL Hx Blood Disorders: Yes Hx Anemia: Yes (B 12) - INTEGUMENTARY Hx Dermatological Problems: Yes (Excision Neuroma of feet, excision of sebaceous L shoulder) - MUSCULOSKELETAL/RHEUMATOLOGICAL Hx Musculoskeletal Disorders: Yes Hx Arthritis: Yes Hx Back Pain: Yes Hx Herniated Disk: Yes Hx Rheumatoid Arthritis: Yes - GASTROINTESTINAL Hx Gastrointestinal Disorders: Yes Hx Gastritis: Yes - GENITOURINARY/GYNECOLOGICAL Hx Genitourinary Disorders: No - PSYCHIATRIC Hx Psychophysiologic Disorder: Yes Hx Anxiety: Yes Hx Depression: Yes - SURGICAL HISTORY Hx Surgeries: Yes Hx Cataract Extraction: Yes (BOTH EYES) Hx Orthopedic Surgery: Yes (R shoulder, R-L foot surger x 5) Other/Comment: Multiple epidural blocks. - ANESTHESIA Hx Anesthesia: Yes Hx Anesthesia Reactions: No Hx Malignant Hyperthermia: No Meds Allergies/Adverse Reactions: Allergies Allergy/AdvReac Type Severity Reaction Status Date / Time No Known Allergies Allergy Verified 09/15/18 07:55 - Medications Medications: Current Medications Ergocalciferol (Drisdol 50,000 Intl Units Cap) 1 cap PO MO [facility] Gabapentin (Neurontin) 600 mg PO Q8 [facility] Last Admin: 09/17/18 01:18 Dose: Not Given Home Med (Icosapent Ethyl [Vascepa]) 2 gm PO Q12 [facility] Home Med (Ropinirole [Requip]) 1 mg PO HS [facility] Home Med (Tramadol/Acetaminophen [Ultracet 37.5/325 Mg]) 1 tab PO Q6 PRN PRN Reason: Pain, severe (8-10) Insulin Detemir (Levemir) 30 units SC HS [facility] Last Admin: 09/16/18 21:48 Dose: 30 units Insulin Human Lispro (Humalog) 8 units SC AC [facility] Last Admin: 09/16/18 16:34 Dose: 8 units Insulin Human Lispro (Humalog) 0 units SC ACHS [facility] Last Admin: 09/17/18 06:37 Dose: Not Given Megestrol Acetate (Megace) 400 mg PO BID [facility] Last Admin: 09/16/18 16:36 Dose: 400 mg Memantine (Namenda) 10 mg PO Q12 [facility] Last Admin: 09/16/18 21:40 Dose: 10 mg Metformin HCl (Glucophage) 1,000 mg PO 0800,1700 [facility] Last Admin: 09/16/18 16:35 Dose: 1,000 mg Pantoprazole Sodium (Protonix Ec Tab) 40 mg PO DAILY [facility] Last Admin: 09/16/18 09:05 Dose: 40 mg Sertraline HCl (Zoloft) 50 mg PO [facility] Last Admin: 09/16/18 21:46 Dose: Not Given Zolpidem Tartrate (Ambien) 10 mg PO [facility] Last Admin: 09/16/18 23:17 Dose: Not Given Results - Vital Signs Recent Vital Signs: Last Vital Signs Temp 98.0 F 09/17/18 00:10 Pulse 104 H 09/17/18 00:10 Resp 18 09/17/18 00:10 BP 119/73 09/17/18 00:10 Pulse Ox 93 L 09/17/18 00:10 - Labs Result Diagrams: 09/16/18 06:30 09/16/18 06:30 Labs: Laboratory Results - last 24 hr 09/16/18 09/16/18 09/16/18 06:30 06:30 10:40 POC Glucose (mg/dL) 380 H Hemoglobin A1c 11.6 H Vitamin B12 TSH 3rd Generation 1.96 09/16/18 09/16/18 09/16/18 15:33 16:21 21:23 POC Glucose (mg/dL) 372 H 186 H Hemoglobin A1c Vitamin B12 578 TSH 3rd Generation 09/17/18 06:04 POC Glucose (mg/dL) 151 H Hemoglobin A1c Vitamin B12 TSH 3rd Generation
--- NOTE | 2018-09-17 08:17 | CON ---
DATE: 09/16/2018 HISTORY OF PRESENT ILLNESS: This is a 68-year-old woman who was admitted to the hospital with complaint of "generalized weakness." More specifically, she states that she has these episodes when she is in the shower. She cannot lift her arm. She has difficulty with ambulation, feels generally fatigued. When specifically questioned, she denies any issues of urinary control or incontinence at all. She did not believe she has any problems with her memory or focusing, cognitive difficulties, etc., and she denies any true gait/balance problems that is more form of weakness, i.e., none of the symptoms of normal-pressure hydrocephalus. Her past medical history, medications, allergies, social history all reviewed in the EMR. PHYSICAL EXAMINATION: She is bright, awake, and alert. She is actually quite appropriate and fluent in Nepalese for second language. She is able to identify all objects presented. Does have good 5-minute recall. Cranial nerves are all intact. She has no computerized table cutter. She has 5/5 strength to gross testing. Gait was not tested here in the hospital. LABORATORY DATA: CT of the brain shows very mild ventriculomegaly which is questionably, perhaps slightly out of proportion to her atrophy although I am not convinced to this. IMPRESSION AND PLAN: The patient clinically has none of the symptoms of normal-pressure hydrocephalus. Therefore, I would certainly not recommend any surgical intervention, and furthermore, conversely hydrocephalus does not cause symptoms of generalized weakness. I will, therefore, advocate further workup to evaluate this complaint. Raphael Miguel MD
[2018-09-17] MEDS: Pantoprazole 40 mg EC Tab PO SCH (09:06)
[2018-09-17] MEDS: Megestrol Acetate 40 mg/ml Cup PO SCH ×2 (09:06→17:23)
--- NOTE | 2018-09-17 12:25 | CP.PCM.PCO ---
Physician Communication Note - Physician Communication Note Physician Communication Note: Pt hunter'd by Dr. Thomas; she is cleared for d/c from neuro standpoint. Thanks
--- NOTE | 2018-09-17 12:53 | CP.PCM.PN ---
Subjective - Date & Time of Evaluation Date of Evaluation: 09/17/18 Time of Evaluation: 13:30 - Subjective Subjective: F/U Generalized weakness. Pt c/o of generalized weakness. Objective - Vital Signs/Intake and Output Vital Signs (last 24 hours): Temp Pulse Resp BP Pulse Ox 97.6 F 88 20 128/80 100 09/17/18 08:15 09/17/18 08:15 09/17/18 08:15 09/17/18 08:15 09/17/18 08:15 - Medications Medications: Current Medications Ergocalciferol (Drisdol 50,000 Intl Units Cap) 1 cap PO MO [facility] Gabapentin (Neurontin) 600 mg PO Q8 [facility] Last Admin: 09/17/18 09:05 Dose: 600 mg Home Med (Icosapent Ethyl [Vascepa]) 2 gm PO Q12 [facility] Home Med (Ropinirole [Requip]) 1 mg PO HS [facility] Home Med (Tramadol/Acetaminophen [Ultracet 37.5/325 Mg]) 1 tab PO Q6 PRN PRN Reason: Pain, severe (8-10) Insulin Detemir (Levemir) 30 units SC HS [facility] Last Admin: 09/16/18 21:48 Dose: 30 units Insulin Human Lispro (Humalog) 8 units SC AC [facility] Last Admin: 09/17/18 07:30 Dose: 8 units Insulin Human Lispro (Humalog) 0 units SC ACHS [facility] Last Admin: 09/17/18 06:37 Dose: Not Given Megestrol Acetate (Megace) 400 mg PO BID [facility] Last Admin: 09/17/18 09:06 Dose: 400 mg Memantine (Namenda) 10 mg PO Q12 [facility] Last Admin: 09/17/18 09:05 Dose: 10 mg Metformin HCl (Glucophage) 1,000 mg PO 0800,1700 [facility] Last Admin: 09/17/18 08:05 Dose: 1,000 mg Mirtazapine (Remeron) 7.5 mg PO [facility] Pantoprazole Sodium (Protonix Ec Tab) 40 mg PO DAILY [facility] Last Admin: 09/17/18 09:06 Dose: 40 mg Zolpidem Tartrate (Ambien) 10 mg PO [facility] Last Admin: 09/16/18 23:17 Dose: Not Given - Labs Labs: 09/16/18 06:30 09/16/18 06:30 PT 10.8 Seconds (9.8-13.1) 09/15/18 08:25 INR 1.0 09/15/18 08:25 APTT 28.9 Seconds (25.6-37.1) 09/15/18 08:25 - Constitutional Appears: No Acute Distress - Head Exam Head Exam: NORMAL INSPECTION - Eye Exam Eye Exam: PERRL - ENT Exam ENT Exam: Normal Exam - Neck Exam Neck Exam: Normal Inspection - Respiratory Exam Respiratory Exam: NORMAL BREATHING PATTERN - Cardiovascular Exam Cardiovascular Exam: REGULAR RHYTHM - GI/Abdominal Exam GI & Abdominal Exam: Soft, Normal Bowel Sounds - Extremities Exam Additional comments: Coldness on feet - Back Exam Back Exam: tenderness (L-S) - Neurological Exam Neurological Exam: Alert, Oriented x3 Additional comments: Generalized weakness, numbness/decreased sensation in feet and hands - Psychiatric Exam Psychiatric exam: Anxious, Depressed - Skin Skin Exam: Warm Assessment and Plan (1) Generalized weakness Status: Acute (2) Hyperglycemia due to type 2 diabetes mellitus Status: Acute (3) Diabetes mellitus Status: Chronic (4) Diabetic neuropathy Status: Chronic (5) History of lumbar laminectomy Status: Chronic (6) History of restless legs syndrome Status: Chronic (7) Hypercholesterolemia Status: Chronic (8) Radiculopathy of lumbar region Status: Chronic (9) Chronic back pain Status: Chronic (10) Headache Status: Acute - Assessment and Plan (Free Text) Plan: Continue Neurontin, Namenda, Humalog, Glucophage, Protonix and rest of Tx. Patient is medically cleared for Surgery, to have muscle Bx
--- NOTE | 2018-09-17 16:48 | CP.PCM.CON ---
<Bhaskar Sena - Last Filed: 09/17/18 16:49> History of Present Illness - History of Present Illness History of Present Illness: General Surgery Consult Note for Dr. Ren Reason for consult: weakness, muscle biopsy 68 F with PMH of Rheumatoid arthritis, osteoarthritis, Chronic back pain with back surgery x3, HTN, DM, depression/anxiety who was admitted for genralized weakness. Patient states that this has been going on for one year. She states that her activity has tremendously increased over this time. She reports that her has to do everything around the house because she is very "weak" all the time. Patient denies pain currently. She denies any numbness/tingling or motor/sensory deficits. General Surgery consulted for muscle biopsy. PMH: Rheumatoid arthritis, osteoarthritis, Chronic back pain with back surgery x3, HTN, DM, depression/anxiety PSH: back surgery x3, angiogram All: NKDA Review of Systems - Review of Systems All systems: reviewed and no additional remarkable complaints except (as per HPI) Past Patient History - Infectious Disease Hx of Infectious Diseases: None - Past Medical History & Family History Past Medical History?: Yes - Past Social History Smoking Status: Never Smoked Alcohol: None Drugs: Denies Home Situation {Lives}: With Family - CARDIAC Hx Cardiac Disorders: Yes Hx Hypercholesterolemia: Yes Hx Hypertension: Yes - PULMONARY Hx Respiratory Disorders: No - NEUROLOGICAL Hx Neurological Disorder: Yes - HEENT Hx HEENT Problems: Yes Hx Cataracts: Yes Other/Comment: Excision of cyst R eye - RENAL Hx Chronic Kidney Disease: No - ENDOCRINE/METABOLIC Hx Endocrine Disorders: Yes (Diabetes Retinopathy.) Hx Diabetes Mellitus Type 2: Yes Hx Hypothyroidism: Yes - HEMATOLOGICAL/ONCOLOGICAL Hx Blood Disorders: Yes Hx Anemia: Yes (B 12) - INTEGUMENTARY Hx Dermatological Problems: Yes (Excision Neuroma of feet, excision of sebaceous L shoulder) - MUSCULOSKELETAL/RHEUMATOLOGICAL Hx Musculoskeletal Disorders: Yes Hx Arthritis: Yes Hx Back Pain: Yes Hx Herniated Disk: Yes Hx Rheumatoid Arthritis: Yes - GASTROINTESTINAL Hx Gastrointestinal Disorders: Yes Hx Gastritis: Yes - GENITOURINARY/GYNECOLOGICAL Hx Genitourinary Disorders: No - PSYCHIATRIC Hx Psychophysiologic Disorder: Yes Hx Anxiety: Yes Hx Depression: Yes - SURGICAL HISTORY Hx Surgeries: Yes Hx Cataract Extraction: Yes (BOTH EYES) Hx Orthopedic Surgery: Yes (R shoulder, R-L foot surger x 5) Other/Comment: Multiple epidural blocks. - ANESTHESIA Hx Anesthesia: Yes Hx Anesthesia Reactions: No Hx Malignant Hyperthermia: No Meds Allergies/Adverse Reactions: Allergies Allergy/AdvReac Type Severity Reaction Status Date / Time No Known Allergies Allergy Verified 09/15/18 07:55 - Medications Medications: Current Medications Ergocalciferol (Drisdol 50,000 Intl Units Cap) 1 cap PO MO [facility] Gabapentin (Neurontin) 600 mg PO Q8 [facility] Last Admin: 09/17/18 09:05 Dose: 600 mg Home Med (Icosapent Ethyl [Vascepa]) 2 gm PO Q12 [facility] Home Med (Ropinirole [Requip]) 1 mg PO HS [facility] Home Med (Tramadol/Acetaminophen [Ultracet 37.5/325 Mg]) 1 tab PO Q6 PRN PRN Reason: Pain, severe (8-10) Insulin Detemir (Levemir) 36 units SC HS [facility] Insulin Human Lispro (Humalog) 0 units SC ACHS [facility] Last Admin: 09/17/18 11:30 Dose: 3 units Insulin Human Lispro (Humalog) 10 units SC AC [facility] Megestrol Acetate (Megace) 400 mg PO BID [facility] Last Admin: 09/17/18 09:06 Dose: 400 mg Memantine (Namenda) 10 mg PO Q12 [facility] Last Admin: 09/17/18 09:05 Dose: 10 mg Metformin HCl (Glucophage) 1,000 mg PO 0800,1700 [facility] Last Admin: 09/17/18 08:05 Dose: 1,000 mg Mirtazapine (Remeron) 7.5 mg PO [facility] Pantoprazole Sodium (Protonix Ec Tab) 40 mg PO DAILY [facility] Last Admin: 09/17/18 09:06 Dose: 40 mg Zolpidem Tartrate (Ambien) 10 mg PO HS [facility] Last Admin: 09/16/18 23:17 Dose: Not Given Physical Exam - Constitutional Appears: No Acute Distress - Head Exam Head Exam: ATRAUMATIC, NORMOCEPHALIC - Eye Exam Eye Exam: EOMI, Normal appearance - ENT Exam ENT Exam: Mucous Membranes Moist - Respiratory Exam Respiratory Exam: NORMAL BREATHING PATTERN - Cardiovascular Exam Cardiovascular Exam: REGULAR RHYTHM - GI/Abdominal Exam GI & Abdominal Exam: Normal Bowel Sounds, Soft. absent: Distended, Firm, G uarding, Hernia, Rebound, Rigid, Tenderness - Extremities Exam Extremities exam: Positive for: normal capillary refill, pedal pulses present - Back Exam Back exam: absent: CVA tenderness (L), CVA tenderness (R) - Neurological Exam Neurological exam: Alert, CN II-XII Intact, Oriented x3 - Psychiatric Exam Psychiatric exam: Flat Affect - Skin Skin Exam: Dry, Intact, Normal Color, Warm Results - Vital Signs Recent Vital Signs: Last Vital Signs Temp 98.7 F 09/17/18 16:40 Pulse 87 09/17/18 16:40 Resp 20 09/17/18 16:40 BP 104/61 09/17/18 16:40 Pulse Ox 98 09/17/18 16:40 - Labs Result Diagrams: 09/16/18 06:30 09/16/18 06:30 Labs: Laboratory Results - last 24 hr 09/16/18 09/16/18 09/16/18 15:33 15:33 21:23 POC Glucose (mg/dL) 186 H Vitamin B12 578 LULA-1 Antibody <1.0 LULA-1 Ab Interpret Negative SS-A Antibody <1.0 SS-B Ab Interp Negative SS-B Antibody <1.0 09/17/18 09/17/18 09/17/18 06:04 10:39 16:33 POC Glucose (mg/dL) 151 H 320 H 127 H Vitamin B12 LULA-1 Antibody LULA-1 Ab Interpret SS-A Antibody SS-B Ab Interp SS-B Antibody Assessment & Plan - Assessment and Plan (Free Text) Assessment: 68 F who presents with generalized weakness Plan: -Clear for DC from surgical standpoint -Plan for elective muscle biopsy as outpatient -Medical management as per primary team -Discussed with Dr. Gela Sena PGY2 - Date & Time Date: 09/17/18 Time: 16:52 <Rachid Ren - Last Filed: 09/18/18 12:00> History of Present Illness - History of Present Illness History of Present Illness: Patient was seen and examined at the bedside. Agree with resident's note above. Meds - Medications Medications: Current Medications Acetaminophen (Tylenol 325mg Tab) 650 mg PO Q6 PRN PRN Reason: Pain, severe (8-10) Last Admin: 09/17/18 19:33 Dose: 650 mg Ergocalciferol (Drisdol 50,000 Intl Units Cap) 1 cap PO MO [facility] Gabapentin (Neurontin) 600 mg PO Q8 [facility] Last Admin: 09/18/18 08:25 Dose: Not Given Home Med (Icosapent Ethyl [Vascepa]) 2 gm PO Q12 [facility] Home Med (Ropinirole [Requip]) 1 mg PO [facility] Home Med (Tramadol/Acetaminophen [Ultracet 37.5/325 Mg]) 1 tab PO Q6 PRN PRN Reason: Pain, severe (8-10) Dextrose/Sodium Chloride (Dextrose 5%/0.45% Ns 1000 Ml) 1,000 mls @ 60 mls/hr IV .[id number] [facility] Stop: 09/19/18 08:40 Last Admin: 09/18/18 09:26 Dose: 60 mls/hr Insulin Detemir (Levemir) 36 units SC [facility] Last Admin: 09/17/18 21:39 Dose: 36 units Insulin Human Lispro (Humalog) 0 units SC ACHS [facility] Last Admin: 09/18/18 08:24 Dose: Not Given Insulin Human Lispro (Humalog) 10 units SC AC [facility] Last Admin: 09/18/18 08:24 Dose: Not Given Megestrol Acetate (Megace) 400 mg PO BID [facility] Last Admin: 09/18/18 08:24 Dose: Not Given Memantine (Namenda) 10 mg PO Q12 [facility] Last Admin: 09/18/18 08:24 Dose: Not Given Metformin HCl (Glucophage) 1,000 mg PO 0800,1700 [facility] Last Admin: 09/18/18 08:24 Dose: Not Given Mirtazapine (Remeron) 7.5 mg PO [facility] Last Admin: 09/17/18 21:38 Dose: 7.5 mg Pantoprazole Sodium (Protonix Ec Tab) 40 mg PO DAILY [facility] Last Admin: 09/18/18 08:25 Dose: Not Given Zolpidem Tartrate (Ambien) 10 mg PO [facility] Last Admin: 09/17/18 21:38 Dose: 10 mg Results - Vital Signs Recent Vital Signs: Last Vital Signs Temp 98.7 F 09/18/18 08:19 Pulse 98 H 09/18/18 08:19 Resp 19 09/18/18 08:19 BP 144/92 H 09/18/18 08:19 Pulse Ox 97 09/18/18 08:19 - Labs Result Diagrams: 09/18/18 05:20 09/18/18 05:20 Labs: Laboratory Results - last 24 hr 09/17/18 09/17/18 09/18/18 16:33 21:43 05:20 WBC 11.6 H RBC 4.38 Hgb 10.4 L Hct 34.4 MCV 78.4 L MCH 23.7 L MCHC 30.2 L RDW 20.8 H Plt Count 337 MPV 8.7 Neut % (Auto) 78.1 H Lymph % (Auto) 14.6 L [place] % (Auto) 6.0 Eos % (Auto) 0.5 Baso % (Auto) 0.8 Neut # (Auto) 9.0 H Lymph # (Auto) 1.7 [place] # (Auto) 0.7 Eos # (Auto) 0.1 Baso # (Auto) 0.1 PT INR APTT Sodium Potassium Chloride Carbon Dioxide Anion Gap BUN Creatinine Est GFR ( Amer) Est GFR (Non-Af Amer) POC Glucose (mg/dL) 127 H 151 H Random Glucose Calcium Phosphorus Magnesium Total Bilirubin AST ALT Alkaline Phosphatase Total Protein Albumin Globulin Albumin/Globulin Ratio Urine Color Urine Clarity Urine pH Ur Specific [place] Urine Protein Urine Glucose (UA) Urine Ketones Urine Blood Urine Nitrate Urine Bilirubin Urine Urobilinogen Ur Leukocyte Esterase Urine RBC (Auto) Urine Microscopic WBC Ur Squamous Epith Cells Urine Bacteria Blood Type Antibody Screen BBK History Checked 09/18/18 09/18/18 09/18/18 05:20 05:20 05:20 WBC RBC Hgb Hct MCV MCH MCHC RDW Plt Count MPV Neut % (Auto) Lymph % (Auto) [place] % (Auto) Eos % (Auto) Baso % (Auto) Neut # (Auto) Lymph # (Auto) [place] # (Auto) Eos # (Auto) Baso # (Auto) PT 11.4 INR 1.0 APTT 28.5 Sodium 142 Potassium 4.4 Chloride 108 H Carbon Dioxide 21 L Anion Gap 17 BUN 21 H Creatinine 0.7 Est GFR ( Amer) > 60 Est GFR (Non-Af Amer) > 60 POC Glucose (mg/dL) Random Glucose 151 H Calcium 9.7 Phosphorus 3.5 Magnesium 2.0 Total Bilirubin 0.2 AST 16 ALT 21 Alkaline Phosphatase 87 Total Protein 7.4 Albumin 4.2 Globulin 3.2 Albumin/Globulin Ratio 1.3 Urine Color Urine Clarity Urine pH Ur Specific [place] Urine Protein Urine Glucose (UA) Urine Ketones Urine Blood Urine Nitrate Urine Bilirubin Urine Urobilinogen Ur Leukocyte Esterase Urine RBC (Auto) Urine Microscopic WBC Ur Squamous Epith Cells Urine Bacteria Blood Type O POSITIVE Antibody Screen Negative BBK History Checked Patient has bt 09/18/18 09/18/18 09/18/18 05:42 11:05 11:10 WBC RBC Hgb Hct MCV MCH MCHC RDW Plt Count MPV Neut % (Auto) Lymph % (Auto) [place] % (Auto) Eos % (Auto) Baso % (Auto) Neut # (Auto) Lymph # (Auto) [place] # (Auto) Eos # (Auto) Baso # (Auto) PT INR APTT Sodium Potassium Chloride Carbon Dioxide Anion Gap BUN Creatinine Est GFR ( Amer) Est GFR (Non-Af Amer) POC Glucose (mg/dL) 145 H 145 H Random Glucose Calcium Phosphorus Magnesium Total Bilirubin AST ALT Alkaline Phosphatase Total Protein Albumin Globulin Albumin/Globulin Ratio Urine Color Yellow Urine Clarity Slighty-cloudy Urine pH 6.0 Ur Specific [place] 1.029 Urine Protein Negative Urine Glucose (UA) >=500 Urine Ketones Trace Urine Blood Negative Urine Nitrate Negative Urine Bilirubin Negative Urine Urobilinogen 0.2-1.0 Ur Leukocyte Esterase Mod Urine RBC (Auto) 3 Urine Microscopic WBC 24 H Ur Squamous Epith Cells 9 H Urine Bacteria Few H Blood Type Antibody Screen BBK History Checked Assessment & Plan - Assessment and Plan (Free Text) Plan: - Keep NPO after midnight - plan for calf muscle biopsy in the morning - Will follow
--- NOTE | 2018-09-17 17:19 | CP.PCM.PN ---
Subjective - Date & Time of Evaluation Date of Evaluation: 09/17/18 Time of Evaluation: 17:18 - Subjective Subjective: EMG/NCS performed all 4 limbs mild/mod sensorimotor peripheral neuropathy no evidence of a cervical or lumbar radiculopathy or myopathy or plexopathy More details will be in the report This does not appear to be consistent with complaints that are likely secondary to irregular blood sugars at home for which she is non-compliant Objective - Vital Signs/Intake and Output Vital Signs (last 24 hours): Temp Pulse Resp BP Pulse Ox 98.7 F 87 20 104/61 98 09/17/18 16:40 09/17/18 16:40 09/17/18 16:40 09/17/18 16:40 09/17/18 16:40 - Medications Medications: Current Medications Ergocalciferol (Drisdol 50,000 Intl Units Cap) 1 cap PO MO [facility] Gabapentin (Neurontin) 600 mg PO Q8 [facility] Last Admin: 09/17/18 09:05 Dose: 600 mg Home Med (Icosapent Ethyl [Vascepa]) 2 gm PO Q12 [facility] Home Med (Ropinirole [Requip]) 1 mg PO HS [facility] Home Med (Tramadol/Acetaminophen [Ultracet 37.5/325 Mg]) 1 tab PO Q6 PRN PRN Reason: Pain, severe (8-10) Insulin Detemir (Levemir) 36 units SC HS [facility] Insulin Human Lispro (Humalog) 0 units SC ACHS [facility] Last Admin: 09/17/18 11:30 Dose: 3 units Insulin Human Lispro (Humalog) 10 units SC AC [facility] Megestrol Acetate (Megace) 400 mg PO BID [facility] Last Admin: 09/17/18 09:06 Dose: 400 mg Memantine (Namenda) 10 mg PO Q12 [facility] Last Admin: 09/17/18 09:05 Dose: 10 mg Metformin HCl (Glucophage) 1,000 mg PO 0800,1700 [facility] Last Admin: 09/17/18 08:05 Dose: 1,000 mg Mirtazapine (Remeron) 7.5 mg PO HS [facility] Pantoprazole Sodium (Protonix Ec Tab) 40 mg PO DAILY [facility] Last Admin: 09/17/18 09:06 Dose: 40 mg Zolpidem Tartrate (Ambien) 10 mg PO HS [facility] Last Admin: 09/16/18 23:17 Dose: Not Given - Labs Labs: 09/16/18 06:30 09/16/18 06:30 PT 10.8 Seconds (9.8-13.1) 09/15/18 08:25 INR 1.0 09/15/18 08:25 APTT 28.9 Seconds (25.6-37.1) 09/15/18 08:25
--- NOTE | 2018-09-17 18:11 | PN ---
DATE: 09/17/2018 ENDOCRINOLOGY FOLLOWUP LOCATION: Room 654. SUBJECTIVE: This is a 68-year-old female with recent uncontrolled type 2 insulin-requiring diabetes presenting here with generalized body weakness and is now being followed closely for metabolic management. Her glycemic levels are fluctuating with the variability of her oral intake as noted. Her glucose levels overnight have ranged from 151-186 and 320 mg/dL. LABORATORY DATA: Her chemistry showed a BUN of 13, sodium 143, potassium 4.2, chloride 101, CO2 24, glucose 198 and creatinine 0.6. Her hemoglobin A1c is 11.6% which is extremely elevated and indicative of suboptimal metabolic control of her diabetic condition even prior to this admission. ASSESSMENT: This s a 68-year-old female with uncontrolled and decompensated type 2 insulin-requiring diabetes presenting here with marked hyperglycemic accelerations and concomitant constitutional manifestations thereof. She is undergoing neurological workup at this time also for persistent generalized body weakness and dizziness and lightheadedness with urinary related complaints. PLAN OF MANAGEMENT: We will modify her current insulin regimen and titrate her basal insulin with Levemir to be given as 36 units subcu at bedtime daily to start tonight. We will modify her prandial insulin and increase the Humalog to 10 units t.i.d. before meals to start at dinnertime today as ordered. We will continue the low-dose correction scale using Humalog insulin to obviate hypoglycemia and detailed orders have been given. We will follow and advise accordingly. Michelle Marcano MD
[2018-09-17] MEDS ORDERED: Insulin Detemir 100 Units/ml Inj SC SCH (22:00)
[2018-09-18 06:43] LABS: PROTHROMBIN TIME 11.4 Seconds (9.8-13.1)
[2018-09-18 06:44] LABS: ALB/GLOB RATIO 1.3 (1.0-2.1); ALBUMIN 4.2 g/dL (3.5-5.0); ALT/SGPT 21 U/L (9-52); AST/SGOT 16 U/L (14-36); BLOOD UREA NITROGEN 21 mg/dl (7-17); CALCIUM 9.7 mg/dL (8.4-10.2); GFR NON-AFRICAN AMERICAN > 60
[2018-09-18 06:46] LABS: PARTIAL THROMBOPLASTIN TIME 28.5 Seconds (25.6-37.1)
[2018-09-18 07:02] LABS: BASO # 0.1 K/uL (0.0-0.2); BASO % 0.8 % (0.0-2.0); EOS # 0.1 K/uL (0.0-0.7); EOS % 0.5 % (0.0-4.0); LYMPH # 1.7 K/uL (1.0-4.3); LYMPH % 14.6 % (20.0-40.0); MEAN CORPUSCULAR HGB CONC 30.2 g/dL (33.0-37.0); MEAN PLATELET VOLUME 8.7 fl (7.2-11.7); MONO # 0.7 K/uL (0.0-0.8); NEUT % 78.1 % (50.0-75.0); NRBC % 0.1 % (0.0-0.0); RBC 4.38 Mil/uL (3.80-5.20); RED CELL DISTRIBUTION WIDTH 20.8 % (11.5-14.5); WHITE BLOOD COUNT 11.6 K/uL (4.8-10.8)
[2018-09-18 07:04] LABS: HEMOGLOBIN 10.4 g/dL (12.0-16.0)
[2018-09-18 07:05] LABS: MEAN CELL VOLUME 78.4 fl (81.0-99.0); MEAN CORPUSCULAR HEMOGLOBIN 23.7 pg (27.0-31.0)
[2018-09-18] MEDS: Insulin Lispro (humaLOG) 100 Units/ml Inj SC SCH ×4 (08:24→14:25)
[2018-09-18] MEDS: Megestrol Acetate 40 mg/ml Cup PO SCH (08:24)
[2018-09-18] MEDS: Pantoprazole 40 mg EC Tab PO SCH (08:25)
[2018-09-18] MEDS ORDERED: Dextrose 5%/0.45% NS 1,000 ML IV SCH (08:45)
[2018-09-18 11:40] LABS: SQUAMOUS EPITHIAL 9 /hpf (0-5); URINE BACTERIA FEW (<OCC); URINE BILIRUBIN NEGATIVE (NEGATIVE); URINE BLOOD NEGATIVE (NEGATIVE); URINE CLARITY SLIGHTY-CLOUDY (Clear); URINE COLOR YELLOW (YELLOW); URINE GLUCOSE (UA) >=500 mg/dL (NEGATIVE); URINE LEUKOCYTE ESTERASE MOD Leu/uL (Negative); URINE PROTEIN NEGATIVE (NEGATIVE); URINE UROBILINOGEN 0.2-1.0 mg/dL (0.2-1.0)
[2018-09-18] MEDS ORDERED: Lactated Ringer's 1,000 ML IV ONE (12:00)
[2018-09-18] MEDS ORDERED: Propofol 10 mg/ml Inj (20 ML) ONE (12:05)
[2018-09-18] MEDS ORDERED: ePHEDrine 50 mg/ml Inj ONE (12:19)
[2018-09-18] MEDS ORDERED: Bupivacaine HCl 0.25% PF (30 ml) Inj ONE (12:27)
[2018-09-18] MEDS ORDERED: HYDROmorphone 0.5 mg/0.5 ml ISec IVP PRN (12:56)
--- NOTE | 2018-09-18 13:03 | PCM.SURG1 ---
<Bhaskar Sena - Last Filed: 09/18/18 13:01> Surgeon's Initial Post Op Note - Surgeon's Notes Surgeon: Dr. Ren Morgue Attendant: Kirit PGY3, Jaida PGY2 Type of Anesthesia: General LMA Anesthesia Administered By: Dr. Rod Pre-Operative Diagnosis: Generalized weakness Operative Findings: Biopsy of right gastrocnemius, hemostasis achieeved, fascia and skin closed (see operative report) Post-Operative Diagnosis: Generalized weakness Operation Performed: Biopsy of right gastrocnemius Specimen/Specimens Removed: 1 x 1 cm piece of right gastrocnemius Estimated Blood Loss: EBL {In ML}: 2 Blood Products Given: N/A Drains Used: No Drains Post-Op Condition: Good Date of Surgery/Procedure: 09/18/18 Time of Surgery/Procedure: 13:03 <Rachid Ren - Last Filed: 09/18/18 13:23> Surgeon's Initial Post Op Note - Surgeon's Notes Estimated Blood Loss: EBL {In ML}: 1
[2018-09-18 14:14] VITALS: PULSE 92
[2018-09-18 15:06] VITALS: BP 137/72; RESP 18; TEMP 97.3; O2SAT 96
--- NOTE | 2018-09-18 20:54 | CP.PCM.DIS ---
Provider - Provider Date of Admission: 09/15/18 10:34 Attending physician: nAdrae Butterfield MD Consults: 09/15/18 10:35 Neuro Surgery Consult Stat Comment: Consulting Provider: Raphael Miguel Consulting Physician: Raphael Miguel Reason for Consult: Generalized weakness, r/o NPH Neurology Consult Stat Comment: Consulting Provider: Wilder Thomas Consulting Physician: Wilder Thomas Reason for Consult: Generalized weakness, r/o NPH 09/16/18 13:46 Endocrinology Consult Routine Comment: Consulting Provider: Michelle Marcano Consulting Physician: Michelle Marcano Reason for Consult: Uncontolled DM Physiatry Consult Routine Comment: Consulting Provider: Harry Gomez Consulting Physician: Harry Gomez Reason for Consult: Generalized weakness, evaluate for EMG 09/16/18 13:50 Psychiatry Consult Routine Comment: Consulting Provider: Mercedez Cruz Consulting Physician: Mercedez Cruz Reason for Consult: Pt has mx hospital admissions ? somatization vs. depression 09/17/18 14:42 Surgery [General Surgery Consult] Routine Comment: Consulting Provider: Rachid Ren Consulting Physician: Rachid Ren Reason for Consult: Sx consult for muscle biopsy Time Spent in preparation of Discharge (in minutes): 35 Diagnosis - Discharge Diagnosis (1) Generalized weakness Status: Acute Priority: High (2) Hyperglycemia due to type 2 diabetes mellitus Status: Acute Priority: High (3) Diabetes mellitus Status: Chronic Priority: High (4) Diabetic neuropathy Status: Chronic Priority: High (5) History of lumbar laminectomy Status: Chronic Priority: High (6) History of restless legs syndrome Status: Chronic Priority: High (7) Hypercholesterolemia Status: Chronic Priority: High (8) Radiculopathy of lumbar region Status: Chronic Priority: Medium (9) Chronic back pain Status: Chronic Priority: High (10) Headache Status: Acute Priority: Medium Hospital Course - Lab Results Lab Results: Most Recent Lab Values WBC 11.6 K/uL (4.8-10.8) H 09/18/18 05:20 RBC 4.38 Mil/uL (3.80-5.20) 09/18/18 05:20 Hgb 10.4 g/dL (12.0-16.0) L 09/18/18 05:20 Hct 34.4 % (34.0-47.0) 09/18/18 05:20 MCV 78.4 fl (81.0-99.0) L 09/18/18 05:20 MCH 23.7 pg (27.0-31.0) L 09/18/18 05:20 MCHC 30.2 g/dL (33.0-37.0) L 09/18/18 05:20 RDW 20.8 % (11.5-14.5) H 09/18/18 05:20 Plt Count 337 K/uL (130-400) 09/18/18 05:20 MPV 8.7 fl (7.2-11.7) 09/18/18 05:20 Neut % (Auto) 78.1 % (50.0-75.0) H 09/18/18 05:20 Lymph % (Auto) 14.6 % (20.0-40.0) L 09/18/18 05:20 [place] % (Auto) 6.0 % (0.0-10.0) 09/18/18 05:20 Eos % (Auto) 0.5 % (0.0-4.0) 09/18/18 05:20 Baso % (Auto) 0.8 % (0.0-2.0) 09/18/18 05:20 Neut # (Auto) 9.0 K/uL (1.8-7.0) H 09/18/18 05:20 Lymph # (Auto) 1.7 K/uL (1.0-4.3) 09/18/18 05:20 [place] # (Auto) 0.7 K/uL (0.0-0.8) 09/18/18 05:20 Eos # (Auto) 0.1 K/uL (0.0-0.7) 09/18/18 05:20 Baso # (Auto) 0.1 K/uL (0.0-0.2) 09/18/18 05:20 PT 11.4 Seconds (9.8-13.1) 09/18/18 05:20 INR 1.0 09/18/18 05:20 APTT 28.5 Seconds (25.6-37.1) 09/18/18 05:20 Sodium 142 mmol/l (132-148) 09/18/18 05:20 Potassium 4.4 MMOL/L (3.6-5.0) 09/18/18 05:20 Chloride 108 mmol/L (98-107) H 09/18/18 05:20 Carbon Dioxide 21 mmol/L (22-30) L 09/18/18 05:20 Anion Gap 17 (10-20) 09/18/18 05:20 BUN 21 mg/dl (7-17) H 09/18/18 05:20 Creatinine 0.7 mg/dl (0.7-1.2) 09/18/18 05:20 Est GFR ( Amer) > 60 09/18/18 05:20 Est GFR (Non-Af Amer) > 60 09/18/18 05:20 POC Glucose (mg/dL) 145 mg/dL (65-110) H 09/18/18 11:05 Random Glucose 151 mg/dL (65-105) H 09/18/18 05:20 Hemoglobin A1c 11.6 % (4.2-6.5) H 09/16/18 06:30 Calcium 9.7 mg/dL (8.4-10.2) 09/18/18 05:20 Phosphorus 3.5 mg/dl (2.5-4.5) 09/18/18 05:20 Magnesium 2.0 MG/DL (1.6-2.3) 09/18/18 05:20 Total Bilirubin 0.2 mg/dl (0.2-1.3) 09/18/18 05:20 AST 16 U/L (14-36) 09/18/18 05:20 ALT 21 U/L (9-52) 09/18/18 05:20 Alkaline Phosphatase 87 U/L (38-126) 09/18/18 05:20 Troponin I < 0.0120 ng/mL (0.00-0.120) 09/15/18 08:25 Total Protein 7.4 G/DL (6.3-8.2) 09/18/18 05:20 Albumin 4.2 g/dL (3.5-5.0) 09/18/18 05:20 Globulin 3.2 gm/dL (2.2-3.9) 09/18/18 05:20 Albumin/Globulin Ratio 1.3 (1.0-2.1) 09/18/18 05:20 Triglycerides 119 mg/DL (0-149) D 09/16/18 06:30 Cholesterol 214 mg/dL (0-199) H 09/16/18 06:30 LDL Cholesterol Direct 142 mg/dL (0-129) H 09/16/18 06:30 HDL Cholesterol 47 MG/DL (30-70) 09/16/18 06:30 Vitamin B12 578 pg/mL (239-931) 09/16/18 15:33 Thyroxine (T4) 8.25 ug/dl (5.5-11.0) 09/16/18 06:30 TSH 3rd Generation 1.96 mIU/ML (0.46-4.68) 09/16/18 06:30 Urine Color Yellow (YELLOW) 09/18/18 11:10 Urine Clarity Slighty-cloudy (Clear) 09/18/18 11:10 Urine pH 6.0 (5.0-8.0) 09/18/18 11:10 Ur Specific [place] 1.029 (1.003-1.030) 09/18/18 11:10 Urine Protein Negative mg/dL (NEGATIVE) 09/18/18 11:10 Urine Glucose (UA) >=500 mg/dL (NEGATIVE) 09/18/18 11:10 Urine Ketones Trace mg/dL (NEGATIVE) 09/18/18 11:10 Urine Blood Negative (NEGATIVE) 09/18/18 11:10 Urine Nitrate Negative (NEGATIVE) 09/18/18 11:10 Urine Bilirubin Negative (NEGATIVE) 09/18/18 11:10 Urine Urobilinogen 0.2-1.0 mg/dL (0.2-1.0) 09/18/18 11:10 Ur Leukocyte Esterase Mod Jalen/uL (Negative) 09/18/18 11:10 Urine RBC (Auto) 3 /hpf (0-3) 09/18/18 11:10 Urine Microscopic WBC 24 /hpf (0-5) H 09/18/18 11:10 Ur Squamous Epith Cells 9 /hpf (0-5) H 09/18/18 11:10 Urine Bacteria Few (<OCC) H 09/18/18 11:10 LULA-1 Antibody <1.0 AI (<1.0) 09/16/18 15:33 LULA-1 Ab Interpret Negative (Negative) 09/16/18 15:33 SS-A Antibody <1.0 AI (<1.0) 09/16/18 15:33 SS-B Ab Interp Negative (Negative) 09/16/18 15:33 SS-B Antibody <1.0 AI (<1.0) 09/16/18 15:33 SS-B Ab Interp Negative (Negative) 09/16/18 15:33 Blood Type O POSITIVE 09/18/18 05:20 Antibody Screen Negative 09/18/18 05:20 BBK History Checked Patient has bt 09/18/18 05:20 - Date & Time of H&P Date of H&P: 09/16/18 Time of H&P: 13:10 Discharge Exam - Head Exam Head Exam: NORMAL INSPECTION - Eye Exam Eye Exam: PERRL - ENT Exam ENT Exam: Normal Exam - Neck Exam Neck exam: Normal Inspection - Respiratory Exam Respiratory Exam: NORMAL BREATHING PATTERN - Cardiovascular Exam Cardiovascular Exam: REGULAR RHYTHM - GI/Abdominal Exam GI & Abdominal Exam: Normal Bowel Sounds, Soft - Extremities Exam Additional comments: Coldness on feet - Back Exam Back exam: tenderness (L-S) - Neurological Exam Neurological exam: Alert, Oriented x3 Additional comments: Generalized weakness, numbness/decreased sensation in feet and hands - Psychiatric Exam Psychiatric exam: Anxious, Depressed - Skin Skin Exam: Warm Discharge Plan - Discharge Medications Prescriptions: Insulin Lispro [Humalog (Insulin Lispro)] 10 unit SQ ACTID #1 cartridge Mirtazapine [Remeron] 7.5 mg PO HS #30 tab - Follow Up Plan Condition: STABLE Disposition: HOME/ ROUTINE Patient education suggested?: Yes Instructions: Weakness (ED) Additional Instructions: neymar velasco con dr butterfield 1-2 semanas Referrals: Andrea Butterfield MD [Staff Provider] -
--- NOTE | 2018-09-19 04:20 | PN ---
DATE: 09/18/2018 ENDO FOLLOWUP NOTE LOCATION: Room 654. SUBJECTIVE: This is a 68-year-old female with recent uncontrolled type 2 insulin-requiring diabetes, now being followed closely for metabolic management. Her glycemic levels are fluctuating but much improved as noted overnight and today's glucose levels have ranged from 145 to 151 mg/dL. LABORATORY DATA: Her chemistry showed a BUN of 21, sodium 142, potassium 4.4, chloride 108, CO2 of 21, glucose 151, and creatinine 0.7. PLAN: So, at this time, we will continue the modified basal and bolus insulin regimen to allow for dose equilibration and keep her on the Humalog given as 10 units t.i.d. before meals as ordered. We will also continue the same basal insulin given as Levemir at 36 units subcu at bedtime daily as given. We will continue her metformin given as 1 g b.i.d. as ordered. She will follow with her medical doctor for ongoing outpatient medical and diabetic followup. Michelle Marcano MD
--- NOTE | 2018-09-21 08:12 | OP ---
PROCEDURE DATE: 09/18/18 PREOPERATIVE DIAGNOSIS: Generalized muscle weakness. POSTOPERATIVE DIAGNOSIS: Generalized muscle weakness. PROCEDURE: Right calf muscle biopsy. SURGEON: Rachid Ren MD BUILDER BEAM: DO WOODY Bond BUILDER BEAM: ____. ANESTHESIOLOGIST: ____. TYPE OF ANESTHESIA: General LMA intubation. IV FLUIDS: Crystalloid. ESTIMATED BLOOD LOSS: 1 mL. INTRAOPERATIVE FINDINGS: Right calf muscle. SPECIMEN: Right calf muscle biopsy. BRIEF HISTORY: Ms. Escamilla is a very pleasant 68-year-old female who has been having progressive muscle weakness and came to the hospital for it and surgical consultation was obtained for a muscle biopsy. All the risks and benefits of the procedure were explained to the patient and with the patient having a full understanding of all the risks and benefits involved, informed consent was obtained and the patient was taken to the operating room for above-stated procedure. DESCRIPTION OF PROCEDURE: The patient was brought into the operating room and placed supine on the operating room table. Subsequent to that after successful induction of anesthesia and successful LMA intubation by the anesthesia team, the patient was placed in a left lateral decubitus position and subsequent to that the patient's right lower extremity was prepped with ChloraPrep stick and draped in a standard surgical fashion. Prior to beginning of the procedure, the patient received prophylactic Ancef antibiotic. Time-out was called in the room and everyone in the room were in agreement. Using a 15-blade scalpel knife, approximately 2.5-cm incision was made in a longitudinal fashion right on top of the patient's right calf and subsequent to that dissection was carried down with electrocautery for the subcutaneous tissues and fat until the fascia of the gastrocnemius muscle was encountered. Fascia was transected with electrocautery and subsequent to that the muscle was exposed. At this point in time, using 15-blade scalpel knife, approximately 1 cm3 of the gastrocnemius muscle was excised and passed off to the [facility] as a specimen. At this point in time, hemostasis was achieved with electrocautery and once the hemostasis was confirmed, fascial layer was closed with running 3-0 Vicryl suture and subsequent to that three interrupted 3-0 Vicryl sutures were placed in the deep dermal layer and subsequent to that the skin was approximated with 4-0 Monocryl suture in a running subcuticular fashion. At the end of the procedure, incision site was infiltrated with 0.25% Marcaine anesthetic. The patient's right lower extremity was washed and dried and Dermabond was applied to the site of the incision. The patient was successfully turned back to the spine position, was carefully extubated by the Anesthesia Team, transferred to the stretcher, and taken to the recovery room in a stable condition. At the end of the procedure, all instrument counts, needles, and sponges were correct. Rachid Ren MD
[2018-09-21] MEDS ORDERED: Ergocalciferol 50,000 Intl Units Cap PO SCH (17:55)
== END 2018-09-18 15:50 | disposition home or self-care (01) | DRG 502 ==
LOC: H.ER 07:43 → H.ERHOLD 10:34 → H.MEDSURG1 14:43
PROVIDERS: ADMIT Internal Medicine Pulmonary Disease; ATTEND Internal Medicine Pulmonary Disease
PROC: 0KBS0ZX Excision of Right Lower Leg Muscle, Open Approach, Diagnostic (ICD-10-PCS; principal; 2018-09-18 10:30)
DX: M62.81 Muscle weakness (generalized) (principal); E11.42 Type 2 diabetes mellitus with diabetic polyneuropathy; E11.51 Type 2 diabetes mellitus with diabetic peripheral angiopathy without gangrene; E11.65 Type 2 diabetes mellitus with hyperglycemia; E11.319 Type 2 diabetes mellitus with unspecified diabetic retinopathy without macular edema; F03.90 Unspecified dementia, unspecified severity, without behavioral disturbance, psychotic disturbance, mood disturbance, and anxiety; G25.81 Restless legs syndrome; G89.29 Other chronic pain; M06.9 Rheumatoid arthritis, unspecified; M54.16 Radiculopathy, lumbar region; D51.3 Other dietary vitamin B12 deficiency anemia; Z91.19 Patient's noncompliance with other medical treatment and regimen; E03.9 Hypothyroidism, unspecified; F41.1 Generalized anxiety disorder; I10 Essential (primary) hypertension; K21.9 Gastro-esophageal reflux disease without esophagitis; E78.00 Pure hypercholesterolemia, unspecified; F41.9 Anxiety disorder, unspecified; E78.5 Hyperlipidemia, unspecified; K29.70 Gastritis, unspecified, without bleeding; Z79.4 Long term (current) use of insulin

== ENCOUNTER 2018-10-13 10:02 | Day surgery (SDC) | payer MEDICARE, OTHER ==
[2018-10-13 10:14] VITALS: BMI 25.7
[2018-10-13] MEDS ORDERED: Sodium Chloride 0.9% 1,000 ML IV STA (10:14)
--- NOTE | 2018-10-13 10:43 | ED PDOC ---
HPI: Back Time Seen by Provider: 10/13/18 10:13 Chief Complaint (Nursing): Back Pain Chief Complaint (Provider): BACK PAIN History Per: Patient History/Exam Limitations: no limitations Onset/Duration Of Symptoms: Days (years) Additional Complaint(s): Pt. with back pain. Ongoing. No numbness, tingles, weakness, dizziness, chest pain, urinary issues. Past Medical History Reviewed: Nursing Documentation, Vital Signs - Medical History PMH: Anemia (B 12), Anxiety, Arthritis, Back Problems, Dementia, Depression, Diabetes, Gastritis, HTN, Hypercholesterolemia, Hypothyroidism, Rheumatoid Arthritis, Chronic Pain Denies: Chronic Kidney Disease - Surgical History Surgical History: Back Surgery (x3), Hernia Repair - Family History Family History: States: Unknown Family Hx - Home Medications Home Medications: Ambulatory Orders Medication Instructions Recorded Ergocalciferol (Vitamin D2) 50,000 unit PO MO 11/04/17 [Vitamin D2] Megestrol Acetate [Megace] 10 ml PO BID 11/04/17 Memantine [Namenda] 10 mg PO Q12 11/04/17 Metformin HCl [Metformin ER 1,000 mg PO BID 11/04/17 Osmotic] Pantoprazole Sodium [Protonix] 40 mg PO DAILY 11/04/17 Gabapentin [Neurontin] 600 mg PO Q8 03/04/18 Icosapent Ethyl [Vascepa] 2 gm PO Q12 05/12/18 rOPINIRole [Requip] 1 mg PO HS 05/12/18 Zolpidem [Ambien] 10 mg PO HS 09/02/18 traMADol/Acetaminophen [Ultracet 1 tab PO Q6 PRN 09/02/18 37.5/325 mg] Insulin Detemir [Levemir] 36 unit SC HS #0 09/18/18 Insulin Lispro [Humalog (Insulin 10 unit SQ ACTID #1 cartridge 09/18/18 Lispro)] Mirtazapine [Remeron] 7.5 mg PO HS #30 tab 09/18/18 - Allergies Allergies/Adverse Reactions: Allergies Allergy/AdvReac Type Severity Reaction Status Date / Time No Known Allergies Allergy Verified 09/15/18 07:55 Review of Systems ROS Statement: Except As Marked, All Systems Reviewed And Found Negative Musculoskeletal: Positive for: Back Pain Physical Exam - Reviewed Nursing Documentation Reviewed: Yes Vital Signs Reviewed: Yes - Physical Exam Appears: Positive for: Non-toxic, No Acute Distress Head Exam: Positive for: ATRAUMATIC, NORMAL INSPECTION, NORMOCEPHALIC Skin: Positive for: Normal Color, Warm, DRY Eye Exam: Positive for: EOMI, Normal appearance, PERRL ENT: Positive for: Normal ENT Inspection Neck: Positive for: Normal, Painless ROM Cardiovascular/Chest: Positive for: Regular Rate, Rhythm Respiratory: Positive for: CNT, Normal Breath Sounds Gastrointestinal/Abdominal: Positive for: Normal Exam, Soft. Negative for: Tenderness Back: Positive for: Other (mild lower spinal). Negative for: L CVA Tenderness, R CVA Tenderness Extremity: Positive for: Normal ROM. Negative for: Tenderness Neurological/Psych: Positive for: Awake, Alert, Normal Tone - Progress ED Course And Treament: 1044: Spoke with Dr. Ramirez. Will admit to his service. AAOx3. Disposition - Clinical Impression Clinical Impression: Back pain - Patient ED Disposition Is Patient to be Admitted: Yes Counseled Patient/Family Regarding: Diagnosis - Disposition Disposition Time: 10:44 Condition: FAIR - Pt Status Changed To: Hospital Disposition Of: [facility] Extended Stay Bed - POA Present On Arrival: None
[2018-10-13] MEDS ORDERED: MethylPREDNISolone Depo 40 mg/ml Inj ONE (11:51)
[2018-10-13] MEDS ORDERED: Lidocaine 1% Inj (20ml) ONE (11:52)
[2018-10-13] MEDS ORDERED: Bupivacaine 0.5% Inj(30mL) ONE (11:52)
--- NOTE | 2018-10-13 12:15 | CP.SDSHP ---
Same Day Surgery H & P - History Proposed Procedure: Left sacral nerve radiofrequency Pre-Op Diagnosis: Left sacroiliac joint dysfunction - Previous Medical/Surgical History Endocrine/Metabolic: Diabetes Pain: 8.Very Severe - Allergies Allergies: Allergies No Known Allergies Allergy (Verified 09/15/18 07:55) - Physical Exam Vital Signs: Vital Signs 10/13/18 11:55 Temperature 97.9 F Pulse Rate 79 Respiratory 19 Rate Blood Pressure 126/66 O2 Sat by Pulse 99 Oximetry Mental Status: Alert & Oriented x3 Neuro: WNL Heart: WNL Lungs: WNL GI: WNL - Impression Impression: Left sacroiliac joint dysfunction Pt. Evaluated Today:Candidate for Anesthesia & Procedure: Yes Short Stay Discharge - Short Stay Discharge Admitting Diagnosis/Reason for Visit: BACK PAIN Disposition: HOME/ ROUTINE Referrals: Andrae Nowak MD [Primary Care Provider] -
[2018-10-13] MEDS ORDERED: Lactated Ringer's 1,000 ML IV ONE (12:20)
[2018-10-13] MEDS ORDERED: Lactated Ringer's 500 ML IV ONE (12:20)
[2018-10-13] MEDS ORDERED: Midazolam 2 MG/2 ML VIAL ONE (12:21)
[2018-10-13] MEDS ORDERED: methylPREDNISolone Depo 80 mg/ml Inj IM ONE (12:26)
[2018-10-13] MEDS ORDERED: Lidocaine 1% Inj (20ml) IJ ONE (12:26)
[2018-10-13] MEDS ORDERED: Bupivacaine 0.5% 50 ML IJ ONE (12:26)
[2018-10-13 13:19] VITALS: RESP 18
[2018-10-13 13:49] VITALS: O2SAT 96
[2018-10-13 13:50] VITALS: BP 127/58; PULSE 70; TEMP 98
--- NOTE | 2018-10-14 00:58 | OP ---
PROCEDURE DATE: 10/13/2018 PREOPERATIVE DIAGNOSIS: Left sacroiliac joint dysfunction. POSTOPERATIVE DIAGNOSIS: Left sacroiliac joint dysfunction. PROCEDURE: Left sacral nerve radiofrequency. SURGEON: Hailey Ramirez MD ANESTHESIOLOGIST: Thomas Still MD TYPE OF ANESTHESIA: Monitored anesthesia care. COMPLICATIONS: None. SPECIMEN: None. DESCRIPTION OF PROCEDURE: As follows; After we had a discussion of the procedure with the patient including its risks, benefits, alternatives, outcome data, and possibility of no effect or increased pain, the patient consented to the procedure. She denies any recent infection, bleeding tendencies, or being on anticoagulants. A decision was then made to proceed to the OR. The patient had previously undergone sacral nerve blocks with substantial but transient relief. She has been in severe pain for the past several weeks to the point that she could not walk properly. She has already undergone right-sided sacral nerve radiofrequency with prolonged and significant relief. Due to the intractable pain, she was admitted to the ER and for repeat of the procedure on the left side. The patient was placed on a fluoroscopy table in a prone position with two pillows underneath her abdomen. The back was prepped and draped in the usual sterile fashion and sterile technique was adhered to during the entire procedure. The left sacroiliac joint was first visualized on the anteroposterior view. Contralateral oblique at 5 degrees was used to line up the posterior and superior opening to the sacroiliac joint. The targets are at a line, slightly medial to the left sacroiliac joint line. A total of seven needles were placed approximately 5 mm medial to the joint line at 1 cm increments. After the needles were placed to my satisfaction, each needle was injected with 1% lidocaine. After satisfactory placement of the needles and after anesthetization of the area, radiofrequency was carried out at intervals between the first and second needles as well as the fourth and the fifth needles. The goal was to create a strip lesion between the needles. Each radiofrequency was carried out at 80 degrees Celsius for 90 seconds. Then, the radiofrequency probe was changed to the needles 2 and 3 as well as the needles 5 and 6. A thorough pass was done at needles 3 and 4 as well as needles 6 and 7. At the end of the procedure, each needle was treated with a combination of 0.5% Marcaine and Depo-Medrol. At the end of the case, the patient's back was cleaned and dry bandage was applied. The patient was then transferred to the recovery area in good condition without any signs of WATCH ASSEMBLER toxicity or any neurological deficit. She will be following up in our office in approximately two to four weeks. En-Fabiano Ramirez MD
--- NOTE | 2018-10-14 13:49 | RAD ---
Date of service: 10/13/2018 PROCEDURE: Fluoroscopy up to 1 hr. HISTORY: PAIN MANAGEMENT COMPARISON: None TECHNIQUE: Standard protocol for this study/examination. FINDINGS: Total fluoroscopic time (continuous mode) utilized during the procedure 53.6 seconds. Submitted images from the current procedure: 2.0. IMPRESSION: Total exam DLP: 31.54 (mGy).
== END 2018-10-13 14:12 | disposition home or self-care (01) ==
LOC: SUPCPDRO 10:02 → H.ER 10:02 → H.SDS 11:16
PROVIDERS: ATTEND Anesthesiology
DX: M53.3 Sacrococcygeal disorders, not elsewhere classified (principal); E11.9 Type 2 diabetes mellitus without complications; M25.9 Joint disorder, unspecified
CPT/HCPCS: 82948; 99284; G0260; J1030; J1040; J2250; J3010; J7030; J7120

== ENCOUNTER 2018-11-05 11:02 | Observation (INO) | payer MEDICARE, OTHER ==
[2018-11-05 11:02] VITALS: BMI 25.7
[2018-11-05 11:25] VITALS: RESP 16; TEMP 98.1; O2SAT 100
--- NOTE | 2018-11-05 12:17 | ED PDOC ---
Syncope/Near Syncope/Dizziness Time Seen by Provider: 11/05/18 11:41 Chief Complaint (Nursing): Dizziness/Lightheaded Chief Complaint (Provider): Dizziness/Lightheaded History Per: Patient History/Exam Limitations: no limitations Onset/Duration Of Symptoms: Days (x3) Current Symptoms Are (Timing): Still Present Additional Complaint(s): Patient is a 68 year old female with a past medical history of anemia, HTN and diabetes, who presents to the emergency department complaining of x3 days of worsening dizziness. She states that the dizziness is worse with sitting up and is not associated with movement of the head. Patient also complains of nausea but no vomiting. She went to see her rail doweling machine operator, Dr. Houston, and had a negative work up. Patient further denies any fever but does report to have a mild headache. She has not had any changes in medications. PMD: Andrae Nowak Body Repairer: Dr. Houston Past Medical History Reviewed: Historical Data, Nursing Documentation, Vital Signs Vital Signs: Last Vital Signs Temp 98.1 F 11/05/18 11:23 Pulse 81 11/05/18 11:23 Resp 16 11/05/18 11:23 BP 118/64 11/05/18 11:23 Pulse Ox 100 11/05/18 11:23 - Medical History PMH: Anemia (B 12), Anxiety, Arthritis, Back Problems, Dementia, Depression, Diabetes, Gastritis, HTN, Hypercholesterolemia, Hypothyroidism, Rheumatoid Arthritis, Chronic Pain Denies: Chronic Kidney Disease - Surgical History Surgical History: Back Surgery (x3), Hernia Repair - Family History Family History: States: Unknown Family Hx - Home Medications Home Medications: Ambulatory Orders Medication Instructions Recorded Ergocalciferol (Vitamin D2) 50,000 unit PO MO 11/04/17 [Vitamin D2] Megestrol Acetate [Megace] 10 ml PO BID 11/04/17 Memantine [Namenda] 10 mg PO Q12 11/04/17 Metformin HCl [Metformin ER 1,000 mg PO BID 11/04/17 Osmotic] Pantoprazole Sodium [Protonix] 40 mg PO DAILY 11/04/17 Gabapentin [Neurontin] 600 mg PO Q8 03/04/18 Icosapent Ethyl [Vascepa] 2 gm PO Q12 05/12/18 rOPINIRole [Requip] 1 mg PO HS 10/30/18 Zolpidem [Ambien] 10 mg PO HS 09/02/18 traMADol/Acetaminophen [Ultracet 1 tab PO Q6 PRN 09/02/18 37.5/325 mg] Insulin Lispro [Humalog (Insulin 10 unit SQ ACTID #1 cartridge 09/18/18 Lispro)] Mirtazapine [Remeron] 7.5 mg PO HS #30 tab 09/18/18 Insulin Detemir [Levemir] 22 unit SC HS 11/05/18 - Allergies Allergies/Adverse Reactions: Allergies Allergy/AdvReac Type Severity Reaction Status Date / Time No Known Allergies Allergy Verified 11/05/18 11:23 Review of Systems ROS Statement: Except As Marked, All Systems Reviewed And Found Negative Constitutional: Negative for: Fever Gastrointestinal: Positive for: Nausea. Negative for: Vomiting Neurological: Positive for: Headache (mild), Dizziness Physical Exam - Reviewed Nursing Documentation Reviewed: Yes Vital Signs Reviewed: Yes - Physical Exam Appears: Positive for: Non-toxic, No Acute Distress Head Exam: Positive for: ATRAUMATIC, NORMOCEPHALIC Skin: Positive for: Normal Color, Warm, Dry Eye Exam: Positive for: Normal appearance, EOMI, PERRL Cardiovascular/Chest: Positive for: Regular Rate, Rhythm. Negative for: Murmur Respiratory: Positive for: Normal Breath Sounds. Negative for: Respiratory Distress Gastrointestinal/Abdominal: Positive for: Normal Exam, Soft. Negative for: Tenderness Back: Positive for: Normal Inspection. Negative for: L CVA Tenderness, R CVA Tenderness, Vertebral Tenderness Extremity: Positive for: Normal ROM. Negative for: Pedal Edema, Deformity Neurological/Psych: Positive for: Alert, Oriented, health informatics specialist II-XII (intact), Other (dizziness exacerbated by sitting up and standing without changes in physical appearances; no syncope) - Laboratory Results Result Diagrams: 11/05/18 10:35 11/05/18 10:35 - ECG O2 Sat by Pulse Oximetry: 100 (RA) Pulse Ox Interpretation: Normal Medical Decision Making Medical Decision Making: Time: 1203 A/P: Work up for dizziness. Rule out cardiac etiology, Will order EKG, Troponin with labs. To rule out intracranial pathology will get a CT of the brain. --CT head without contrast --EKG --BMP --Troponin I --CBC with differential Time: [address] FINDINGS: HEMORRHAGE: No intracranial hemorrhage. BRAIN: No mass effect or edema. Mild age-appropriate diffuse atrophy. Mild periventricular white matter lucency consistent with chronic microvascular ischemic change. No evidence of acute infarct. VENTRICLES: Unremarkable. No hydrocephalus. CALVARIUM: Unremarkable. PARANASAL SINUSES: Unremarkable as visualized. No significant inflammatory changes. MASTOID AIR CELLS: Unremarkable as visualized. No inflammatory changes. OTHER FINDINGS: None. IMPRESSION: No intracranial mass, hemorrhage or evidence of acute infarct. Mild age- appropriate atrophy and chronic white matter ischemic change. No interval change from prior examination. 1418 Labs and workup unremarkable. Pt to be admitted to Dr. Nowak for further observation and workup. --- Scribe Attestation: Documented by Ronal Calvo, acting as a scribe Elías Sam MD. Provider Scribe Attestation: All medical record entries made by the Scribe were at my direction and pe rsonally dictated by me. I have reviewed the chart and agree that the record accurately reflects my personal performance of the history, physical exam, medical decision making, and the department course for this patient. I have also personally directed, reviewed, and agree with the discharge instructions and disposition. Disposition - Clinical Impression Clinical Impression: Dizziness - Disposition Disposition Time: 14:18 Condition: IMPROVED
[2018-11-05 12:48] LABS: BASO # 0.1 K/uL (0.0-0.2); BASO % 0.9 % (0.0-2.0); EOS # 0.1 K/uL (0.0-0.7); EOS % 1.3 % (0.0-4.0); HEMOGLOBIN 10.1 g/dL (12.0-16.0); LYMPH # 1.8 K/uL (1.0-4.3); LYMPH % 18.7 % (20.0-40.0); MEAN CELL VOLUME 79.2 fl (81.0-99.0); MEAN CORPUSCULAR HGB CONC 30.3 g/dL (33.0-37.0); MEAN PLATELET VOLUME 8.7 fl (7.2-11.7); MONO # 0.8 K/uL (0.0-0.8); MONO % 8.1 % (0.0-10.0); NEUT # 6.7 K/uL (1.8-7.0); NRBC % 0.1 % (0.0-0.0); RBC 4.22 Mil/uL (3.80-5.20); WHITE BLOOD COUNT 9.4 K/uL (4.8-10.8)
[2018-11-05 13:12] LABS: BLOOD UREA NITROGEN 14 mg/dl (7-17); CALCIUM 9.5 mg/dL (8.4-10.2); GFR NON-AFRICAN AMERICAN > 60
--- NOTE | 2018-11-05 14:00 | CT ---
Date of service: 11/05/2018 PROCEDURE: CT HEAD WITHOUT CONTRAST. HISTORY: dizziness COMPARISON: 09/15/2018 TECHNIQUE: Axial computed tomography images were obtained through the head/brain without intravenous contrast. Radiation dose: Total exam DLP = 790.48 mGy-cm. This CT exam was performed using one or more of the following dose reduction techniques: Automated exposure control, adjustment of the mA and/or kV according to patient size, and/or use of iterative reconstruction technique. FINDINGS: HEMORRHAGE: No intracranial hemorrhage. BRAIN: No mass effect or edema. Mild age-appropriate diffuse atrophy. Mild periventricular white matter lucency consistent with chronic microvascular ischemic change. No evidence of acute infarct. VENTRICLES: Unremarkable. No hydrocephalus. CALVARIUM: Unremarkable. PARANASAL SINUSES: Unremarkable as visualized. No significant inflammatory changes. MASTOID AIR CELLS: Unremarkable as visualized. No inflammatory changes. OTHER FINDINGS: None. IMPRESSION: No intracranial mass, hemorrhage or evidence of acute infarct. Mild age-appropriate atrophy and chronic white matter ischemic change. No interval change from prior examination.
[2018-11-05 18:59] VITALS: BP 120/70; PULSE 76
--- NOTE | 2018-11-05 19:01 | CARD ---
APPROVED REPORT Date of service: 11/05/2018 EKG Measurement Heart [id number] [id number] <Conclusion> Normal sinus rhythm Normal ECG
== END 2018-11-05 18:30 | disposition left against medical advice (07) ==
LOC: H.ER 11:02 → H.ERHOLD 14:18
PROVIDERS: ADMIT Internal Medicine Pulmonary Disease; ATTEND Internal Medicine Pulmonary Disease
DX: R42 Dizziness and giddiness (principal); E11.9 Type 2 diabetes mellitus without complications; E03.9 Hypothyroidism, unspecified; E78.00 Pure hypercholesterolemia, unspecified; I10 Essential (primary) hypertension; F03.90 Unspecified dementia, unspecified severity, without behavioral disturbance, psychotic disturbance, mood disturbance, and anxiety; M06.9 Rheumatoid arthritis, unspecified; D64.9 Anemia, unspecified; F41.9 Anxiety disorder, unspecified; G89.29 Other chronic pain; K29.70 Gastritis, unspecified, without bleeding; Z79.4 Long term (current) use of insulin
CPT/HCPCS: 70450; 80048; 84484; 85025; 93005; 99284; G0378